=== PATIENT | male | born 1955 | race Caucasian/White ===

== ENCOUNTER → 2017-01-02 11:23 | Emergency (ER) | payer BC, MEDICARE ==
[~2017-01-02 11:23] MED LIST: DOXYcycline CAP(*) 100 MG PO ONE; cefTRIAXone VIAL(*) 1,000 MG VIAL IM ONE; cefTRIAXone VIAL(*) 250 MG VIAL IM ONE
--- NOTE | 2017-01-02 12:15 | RAD ---
HISTORY: Crush injury, third digit of right hand COMPARISONS: None VIEWS: 3, Frontal, lateral, and oblique views of the third digit of the right hand FINDINGS: BONE DENSITY: Normal. BONES: There is a comminuted and slightly displaced fracture of the tuft of the distal talus of the third digit consistent history of crush injury. JOINTS: There is no arthropathy. ALIGNMENT: There is no dislocation. SOFT TISSUES: There is associated soft tissue irregularity OTHER FINDINGS: None. IMPRESSION: COMMINUTED SLIGHTLY DISPLACED FRACTURE OF THE TUFT OF DISTAL PHALANX OF THE THIRD DIGIT OF THE RIGHT HAND
[2017-01-02 16:15] VITALS: BP 120/77
--- NOTE | 2017-01-02 16:16 | ED ---
Upper Extremity Pain - HPI Summary HPI Summary: Pt here w/ Rt middle finger crush injury - was working with [employer] on [employer] and caught finger between two metal parts on this machine. No animal feces to contaminate wound. Laceration with pain and bleeding. Tetanus is UTD. Denies numbness, tingling, weakness. NOTE: recently finished chemo for bladder CA w/ mets to LN's and esophagus. - History of Current Complaint Chief Complaint: EDLacSutureRecheck Stated Complaint: RT HAND LAC Time Seen by Provider: 01/02/17 14:31 Hx Obtained From: Patient - Allergies/Home Medications Allergies/Adverse Reactions: Allergies Allergy/AdvReac Type Severity Reaction Status Date / Time No Known Allergies Allergy Verified 09/11/16 11:49 PMH/Surg Hx/FS Hx/Imm Hx Previously Healthy: Yes Endocrine/Hematology History: Reports: Other Endocrine/Hematological Disorders - bladder CA w/ mets and chemo (completed recently) Denies: Hx Diabetes, Hx Systemic Lupus Erythematosus Cardiovascular History: Reports: Other Cardiovascular Problems/Disorders - 1993 AAA, RUPTURED, SURGERY Denies: Hx Congestive Heart Failure, Hx Hypertension, Hx Pacemaker/ICD GI History: Reports: Hx Gastroesophageal Reflux Disease - ON DAILY MEDS, NO Sx, Hx Irritable Bowel, Hx Ulcer - HX OF, Other GI Disorders - DUMPING SYNDROME History: Reports: Other Problems/Disorders - BLADDER CANCER Denies: Hx Dialysis, Hx Renal Disease Musculoskeletal History: Denies: Hx Rheumatoid Arthritis Sensory History: Reports: Hx Contacts or Glasses - GLASSES Denies: Hx Hearing Aid Opthamlomology History: Reports: Hx Contacts or Glasses - GLASSES Neurological History: Reports: Other Neuro Impairments/Disorders - NERVE PAIN R/ T OPEN AHMET 10/12/15 Psychiatric History: Reports: Hx Panic Disorder - Cancer History Cancer Type, Location and Year: BLADDER CANCER Hx Chemotherapy: Yes - Surgical History Surgery Procedure, Year, and Place: [id number] Seven abdominal surgeries , all for ulcer or abdominal blockage,. 1993 ABD [address] REPAIR - [facility] [place]. 2013 colectomy/LYSIS OF ADHESIONS [facility] [place]. 09/2015 GALLBLADDER [facility]. 10/2015 & 12/[address] 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 Hx Tobacco Use: Yes Type: Cigarettes Amount Used/How Often: 1/2 PPD X 40 YEARS Length of Time of Smoking/Using Tobacco: SINCE 20'S Have You Smoked in the Last Year: Yes Review of Systems Constitutional: Negative Negative: Fever, Chills Positive: no symptoms reported Musculoskeletal: Other - denies pain Skin: Other - see HPI Neurological: Negative Negative: Weakness, Paresthesia, Numbness Psychological: Normal All Other Systems Reviewed And Are Negative: Yes Physical Exam Triage Information Reviewed: Yes Vital Signs On Initial Exam: Initial Vitals Temp Pulse Resp BP Pulse Ox 98.1 F 78 17 113/82 95 01/02/17 11:35 01/02/17 11:35 01/02/17 11:35 01/02/17 11:35 01/02/17 11:35 Vital Signs Reviewed: Yes Appearance: Positive: Well-Appearing, No Pain Distress, Well-Nourished Skin: Positive: Warm - 1.5cm spiral lac along lateral Rt middle finger to palmar pad - nail is mostly avulsed from nail bed - oozing blood Head/Face: Positive: Normal Head/Face Inspection Eyes: Positive: Normal, EOMI ENT: Positive: Hearing grossly normal Musculoskeletal: Positive: Normal, Strength/ROM Intact Neurological: Positive: Sensory/Motor Intact, Alert, Oriented to Person Place, Time Psychiatric: Positive: Normal Procedures - Laceration/Wound Repair 1 Location: upper extremity - Rt middle finger Description: Irregular Anesthesia: Digital, 1.0%, Lido Length, Depth and Shape: 1.5cm x 3mm spiral, linear lac over finger w/ blow out of nail bed - nail in tact and partially attached to nail bed Betadine Prep?: Yes Irrigated w/ Saline (ccs): 250 - soaked, scrubbed w/ brush and irrigated Laceration/Wound Explored: contaminated - dirt brushed away and irrigated after soaking Closure: Single Layer Suture Type: Nylon - 5-0 Number of Sutures: 8 - 2 through nail for anchor and 6 through lateral finger tissue Layer Closure?: No Sterile Dressing Applied?: Yes - triple anbx + xerform + gauze + coban Diagnostics - Vital Signs Vital Signs Temp Pulse Resp BP Pulse Ox 01/02/17 11:35 98.1 F 78 17 113/82 95 - Laboratory Lab Statement: Any lab studies that have been ordered have been reviewed, and results considered in the medical decision making process. Re-Evaluation - Re-Evaluation First Eval Change: Improved - pt declined pain while here but then reports it's better once digital block provided Course/Dx - Course Course Of Treatment: Pt here w/ crush injury to Rt middle finger. Nail w/ partial blow out and lac - wound is dirty but cleaned and repaired - pt tolerated well. He is s/p chemo recently - received 1gram rocephin here today and 1 x doxy w/ home course for 10 days. Spoke w/ Dr. Arana who agrees to close f/u Saturday - to see Dr. Cottrell. Pt agrees w/ plan. NOTE: pt reports he has oxycodone at home for cancer pain which he has not taken so will use left over for finger pain as necessary. - Diagnoses Provider Diagnoses: Fracture of finger, middle phalanx, right, open - Physician Notifications Discussed Care of Patient With: Dr. Arana, Dr. Murphy - To be seen Saturday Discharge - Discharge Plan Condition: Stable Disposition: HOME Prescriptions: DOXYcycline CAP(*) [DOXYcycline 100MG CAP(*)] 100 mg PO BID #19 cap Patient Education Materials: Finger Fracture (ED), Finger Laceration (ED), Crush Injury (ED) Referrals: Quan Cottrell MD [Medical Doctor] - Additional Instructions: You have a fracture of the tip of your finger (ie. Tuft Fracture). This has been splinted for you today. You also have been started on antibiotics - it is important that you complete the course as directed. Your laceration was closed however you will need close follow-up with hand specialist to asses healing and to monitor for infection as this is a complicated injury. Also with your course of chemotherapy recently, your immune system may not fight infections as well. Call hand specialist tomorrow morning to schedule an appointment for Saturday. In the meantime, keep finger rest, iced and elevate to reduce pain and swelling. You may take ibuprofen 600mg every 6 hours with food and alternate with acetaminophen 650mg every 6 hours for pain. You reported having oxycodone at home that you took for pain related to cancer but still have some left -you agree to take this if pain is intolerable and/or trouble sleeping due to pain. *If you develop redness, swelling, streaking, fever, chills of your finger/hand , seek medical attention sooner than Saturday.
== END | disposition home or self-care (01) ==
LOC: ED 11:23
DX: S61.212A Laceration without foreign body of right middle finger without damage to nail, initial encounter (principal); W23.0XXA Caught, crushed, jammed, or pinched between moving objects, initial encounter; Y93.9 Activity, unspecified; Y92.9 Unspecified place or not applicable
CPT/HCPCS: 12002; 73140; 99282; A9270-GY; J0696

== ENCOUNTER 2017-04-05 10:24 | Day surgery (SDC) | payer BC, MEDICARE ==
--- NOTE | 2017-03-27 20:20 | HP ---
CC: Dr. Melissa Hansen; Dr. Abhishek Herrera; Dr. Ayaan Katz, [facility] * ADMITTING HISTORY AND PHYSICAL: DATE OF ADMISSION: 04/05/17 ADMITTING DIAGNOSIS: Bladder cancer. PLANNED PROCEDURE: Transurethral resection of bladder tumor and bilateral retrograde pyelograms. SURGEON: Dr. Kumar. 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 He subsequently had extensive evaluation at [facility] and in [place] and was eventually diagnosed with metastatic lymph node involvement and was treated with chemotherapy. Recent cystoscopy done in my office revealed what appears to be a solid bladder tumor in the left lateral wall and he is now being brought in for transurethral resection and bilateral retrogrades. PAST MEDICAL HISTORY: Significant for: 1. Bladder cancer. 2. History of dumping syndrome (status post multiple GI surgeries). PAST SURGICAL HISTORY: Significant for: 1. Transurethral resection of bladder tumors. 2. Partial gastrectomy. 3. Abdominal aneurysm repair in 1994. 4. Multiple lysis of adhesions. 5. Cholecystectomy. MEDICATIONS ON ADMISSION: Include: 1. Celebrex 200 mg daily. 2. Compazine 10 mg 3 to 4 times a day p.r.n. 3. Gabapentin 300 mg at bedtime. 4. Gabapentin 100 mg q.a.m. 5. Lorazepam 0.5 mg at bedtime p.r.n. 6. Myrbetriq 50 mg daily. 7. Omeprazole 20 mg daily. 8. Oxycodone p.r.n. 9. Zoloft 25 mg daily. ALLERGIES: MORPHINE (itching). SOCIAL HISTORY: He is a chronic heavy smoker with more than 40-year smoking history. PHYSICAL EXAMINATION GENERAL: Reveals a pleasant middle-aged gentleman. VITAL SIGNS: Blood pressure is 96/62; pulse 77 per minute, regular; oxygen saturation 97% on room air. LUNGS: Clear bilaterally. CARDIOVASCULAR: Regular rate and rhythm. S1, S2. ABDOMEN: Soft without masses. IMPRESSION: A 62-year-old chronic smoker with what appears to be a recurrent bladder tumor. PLAN: Planned procedure is transurethral resection of bladder tumor and bilateral retrograde pyelograms. [id number]/[facility] #: [id number] CARLOS
[~2017-04-05 10:24] MED LIST changes: +Buffered Lidocaine 0.9% SYRIN* 5 ML/SYR SYRINGE INTRADERM ONE; -DOXYcycline CAP(*) 100 MG PO ONE; +Famotidine IV* 10 MG/ML 2 ML (20 mg) IV ONE; -cefTRIAXone VIAL(*) 1,000 MG VIAL IM ONE; -cefTRIAXone VIAL(*) 250 MG VIAL IM ONE
[2017-04-05] MEDS ORDERED: Buffered Lidocaine 0.9% SYRIN* 5 ML/SYR SYRINGE ONE (10:42)
[2017-04-05] MEDS ORDERED: Famotidine IV* 10 MG/ML 2 ML (20 mg) ONE (10:42)
[2017-04-05] MEDS ORDERED: cefTRIAXone(*) 2 GM ADDV.VIAL IVPB ONE (10:42)
[2017-04-05] MEDS ORDERED: Iohexol 180 (CONTRAST) 10 ML SDV IV ONE (11:18)
[2017-04-05] MEDS ORDERED: Midazolam* 1 MG/ML 5 ML VIAL (5 MG) ONE ×2 (11:31→13:17)
[2017-04-05] MEDS ORDERED: oxyCODONE TAB* 5 MG TAB PO PRN (12:32)
[2017-04-05] MEDS ORDERED: DiMENhydriNATE IV* 50 MG/ML VIAL IV PUSH PRN (12:32)
[2017-04-05] MEDS ORDERED: Acetaminophen TAB* 325 MG PO PRN (12:32)
[2017-04-05] MEDS ORDERED: HYDROmorphone INJ* 1 MG/ML CARPUJECT SYRINGE IV PRN (12:32)
[2017-04-05] MEDS ORDERED: HYDROmorphone INJ* 1 MG/ML CARPUJECT SYRINGE ONE (12:53)
[2017-04-05] MEDS ORDERED: oxyCODONE TAB* 5 MG TAB ONE (12:53)
[2017-04-05] MEDS ORDERED: Lidocaine 2% JELLY* 6 ML JELLY TOPICAL ONE (13:09)
[2017-04-05] MEDS ORDERED: fentaNYL* 50 MCG/ML 2 ML VIAL (100 MCG VIAL) ONE ×2 (13:17→13:49)
[2017-04-05] MEDS ORDERED: Propofol* 10 MG/ML 20 ML BTL IV PUSH ONE (13:46)
[2017-04-05] MEDS ORDERED: Dexamethasone IV* 4 MG/ML 1 ML (4 MG) ONE (13:46)
[2017-04-05] MEDS ORDERED: Succinylcholine* 20 MG/ML 10 ML VIAL ONE (13:46)
[2017-04-05] MEDS ORDERED: Lidocaine 2% PF * 5 ML VIAL ONE (13:46)
[2017-04-05] MEDS ORDERED: Ondansetron INJ* 2 MG/ML VIAL ONE (13:46)
[2017-04-05] MEDS ORDERED: Ketorolac INJ* 30 MG/ML 1 ML VIAL ONE (13:46)
[2017-04-05 14:03] VITALS: BP 130/78
--- NOTE | 2017-04-06 05:30 | OP ---
CC: Melissa Hansen MD; Dr. Ayaan Katz, [facility], [place] * DATE OF OPERATION: 04/05/17 - [facility] DATE OF : 53 SURGEON: Moe Kumar MD ANESTHESIOLOGIST: Dr. Lemus. ANESTHESIA: General. PRE-OP DIAGNOSES: 1. Bladder cancer. 2. Hematuria. POST-OP DIAGNOSES: 1. Bladder cancer. 2. Hematuria. 3. Left hydronephrosis. OPERATIVE PROCEDURE: 1. Transurethral resection of bladder tumor (3 to 4 cm). 2. Bilateral retrograde pyelograms. 3. Left ureteroscopy and left stent insertion. OPERATIVE FINDINGS: 1. Solid appearing tumor, left side of trigone, partially obstructing left orifice. 2. Normal ureteroscopy with no evidence of tumor noted within left ureter. 3. Normal bilateral retrograde pyelograms with fullness of the left collecting system, but no filling defects noted. COMPLICATIONS: None. POSTOPERATIVE CONDITION: Stable. BLOOD LOSS: Less than 50 mL. INDICATIONS: Bridger Pruett is a 62-year-old gentleman with a history of recurrent bladder cancer. He was recently seen in the office, and on office cystoscopy was noted to have above mentioned findings. DESCRIPTION OF PROCEDURE: After induction of general anesthesia, the patient was placed in dorsal lithotomy position. Sequential compression devices were in place and functioning. Initial cystoscopy revealed a normal appearing urethra and mildly enlarged prostate. The bladder was examined. The patient has a small protuberance medial to the right orifice with normal overlying mucosa, which represents a chronic benign finding. On the left side of the trigone, there was a solid appearing vascular tumor, which was partially covering the left orifice. The remainder of the bladder was unremarkable except for extensive trabeculations and some scarring from prior tumors, but no other tumors were noted. The right retrograde pyelogram did not reveal any filling defect or obstruction. The drainage films showed complete evacuation of contrast from the right collecting system. On the left side, I initially attempted to put a guidewire into the left orifice , but this was partially blocked by the tumor. The resectoscope was introduced. The tumor was carefully resected down to muscle. Once this was done, the left orifice could be clearly visualized and was intubated with the open-ended catheter. Retrograde pyelogram revealed fullness of the left collecting system, but no filling defects were noted. A 6-Italian semi-rigid ureteroscope was introduced and advanced under direct vision. The entire distal , mid and proximal left ureter were visualized and were normal with no tumor seen. A 7-Italian stent was introduced and positioned under fluoroscopy with good proximal and distal positioning noted on the left side. Once all of the visible tumor had been resected and sent for histopathology, hemostasis was secured using the coagulating current. At the end of the procedure, there was no remaining visible tumor and hemostasis appeared satisfactory. A 22-Italian Hernandez was placed for temporary bladder drainage. The patient tolerated the procedure satisfactorily and was transferred back to the recovery area in stable condition. [id number]/[facility] #: [id number] MTDD
--- NOTE | 2017-04-09 10:38 | RAD ---
CPT II Codes: 6045F INDICATION: Bilateral retrograde pyelogram Approximately 12 seconds of fluoroscopy time was used. There is a filling defect in the proximal right ureter which eventually clears on the final image of the right retrograde. The left renal collecting system is not well opacified. Irregularities are noted in the proximal left ureter. This placement of a left ureteral stent with left hydronephrosis. IMPRESSION: Placement of a left ureteral stent.
== END 2017-04-05 14:05 | disposition home or self-care (01) ==
LOC: OR 10:24
PROVIDERS: ATTEND Urology
DX: C67.0 Malignant neoplasm of trigone of bladder (principal); R31.9 Hematuria, unspecified; N13.30 Unspecified hydronephrosis; F17.210 Nicotine dependence, cigarettes, uncomplicated; Z88.5 Allergy status to narcotic agent
CPT/HCPCS: 74420; 88305; A9270-GY; C1876; J0330; J0696; J1100; J1170; J1885; J2250; J2405; J2704; J3010

== ENCOUNTER 2017-05-06 20:26 | Inpatient (IN) | payer BC, MEDICARE ==
[2017-05-06] MEDS: NS 0.9% 1000 ML*IV.FLUID IV ONE ×2 (21:30→22:25)
[2017-05-06 22:00] LABS: Hematocrit 26 % (42-52); Hemoglobin 8.9 g/dl (14.0-18.0); Mean Corpuscular HGB Conc 35 g/dl (31-36); Mean Corpuscular Hemoglobin 34 pg (27-31); Mean Corpuscular Volume 96 fL (80-94); Mean Platelet Volume 7 um3 (7.4-10.4); Red Blood Count 2.65 10^6/ul (4.0-5.4); Red Cell Distribution Width 14 % (10.5-15); White Blood Count 16.7 10^3/ul (3.5-10.8)
[2017-05-06 22:14] LABS: Albumin 3.1 g/dL (3.2-5.2); BUN/Creatinine Ratio 18.6 (8-20); C Reactive Protein 214.81 mg/L (< 5.00); Calcium 8.2 mg/dL (8.6-10.3); EGFR African American 84.3 (>60); EGFR Non-African American 65.5 (>60); Globulin 3.3 g/dL (2-4); Potassium 4.3 mmol/L (3.5-5.0); Total Bilirubin 0.6 mg/dL (0.2-1.0); Total Protein 6.4 g/dL (6.4-8.9)
[2017-05-06] MEDS ORDERED: oxyCODONE TAB* 5 MG TAB PO ONE (22:36)
[2017-05-06 23:45] LABS: Urine Bacteria 1+ (Absent); Urine Bilirubin Negative (Negative); Urine Glucose Negative (Negative); Urine Nitrite Negative (Negative)
[2017-05-07] MEDS ORDERED: NS 0.9% 1000 ML* 1,000 ML IV ONE ×2 (00:05→02:18)
[2017-05-07] MEDS ORDERED: Iohexol 300* (CONTRAST) 10 ML SDV IV ONE (00:44)
[2017-05-07] MEDS ORDERED: oxyCODONE TAB* 5 MG TAB PO ONE (01:52)
[2017-05-07] MEDS ORDERED: Acetaminophen TAB* 325 MG ONE (02:03)
[2017-05-07] MEDS ORDERED: Acetaminophen TAB* 325 MG PO ONE (02:06)
[2017-05-07] MEDS: NS 0.9% 1000 ML* 1,000 ML IV SCH ×6 (04:08→23:22)
--- NOTE | 2017-05-07 07:27 | RAD ---
INDICATION: Fever. COMPARISON: Comparison is made with a prior chest x-ray study from May 27, 2014. TECHNIQUE: A portable view of the chest was obtained. FINDINGS: There is a central venous catheter present on the right side. The catheter tip projects overlying the superior vena cava. The heart is within normal limits in size. There are multiple surgical clips which project overlying the gastroesophageal junction. The lungs are clear. No pleural effusion is seen. IMPRESSION: NO EVIDENCE FOR ACUTE DISEASE.
--- NOTE | 2017-05-07 07:32 | RAD ---
INDICATION: Right flank pain, recent surgery, cystectomy. COMPARISON: Comparison is made with a prior outside PET/CT study from April 04, 2017. TECHNIQUE: Multiple real-time images of the kidneys were obtained. FINDINGS: The kidneys are normal in size shape and echogenicity. The right kidney measured 12.4 x 5.1 x 7.3 cm and the left kidney measured 11.4 x 6.8 x 5.8 cm. There is a cyst arising from the superior pole of the left kidney measured 3.8 x 2.5 x 3.0 cm. No hydronephrosis is seen. IMPRESSION: LEFT RENAL CYST, NO HYDRONEPHROSIS.
--- NOTE | 2017-05-07 07:32 | ED ---
Paul Cabello Nilda, scribed for German Oneil MD on 05/06/17 at 2129 . Complex/Multi-Sys Presentation - HPI Summary HPI Summary: This patient is a 62 year old M presenting to [facility] accompanied by and children with a chief complaint of possible infection s/p radical cystectomy that occurred 1 week ago. The patient rates the pain 7/10 in severity. Symptoms aggravated by movement and alleviated by nothing. Patient reports fever, chills , fatigue, dehydration, weakness, tremors, no BM for 3 days, dark urine ( yesterday), and severe right lower back pain for the past 2 days. Patient denies cough, chest congestion, and rhinorrhea. 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 - History Of Current Complaint Chief Complaint: EDFever Time Seen by Provider: 05/06/17 21:15 Hx Obtained From: Patient Onset/Duration: Sudden Onset, Lasting Days - 2 days, Still Present Timing: Constant, Days Severity Currently: Severe Location: Pain At: - lower right back Aggravating Factor(s): movement Alleviating Factor(s): nothing Associated Signs And Symptoms: Positive: Other - fever, chills, fatigue, dehydration, weakness, tremors, no BM for 3 days, dark urine (yesterday), and severe right lower back pain for the past 2 days. Patient denies cough, chest congestion, and rhinorrhea. Related History: Other - recent radical cystectomy 1 week ago - Allergies/Home Medications Allergies/Adverse Reactions: Allergies Allergy/AdvReac Type Severity Reaction Status Date / Time No Known Allergies Allergy Verified 05/06/17 20:35 Home Medications: Home Medications Oxycodone HCl [Oxaydo] 5 mg PO BID 05/07/17 [History Confirmed 05/07/17] oxyCODONE SR TAB(*) [Oxycontin 10 mg (*)] 10 mg PO BID PRN 05/07/17 [History Confirmed 05/07/17] PMH/Surg Hx/FS Hx/Imm Hx Endocrine/Hematology History: Reports: Other Endocrine/Hematological Disorders - bladder CA w/ mets and chemo (completed recently) Denies: Hx Diabetes, Hx Systemic Lupus Erythematosus Cardiovascular History: Reports: Other Cardiovascular Problems/Disorders - 1993 AAA, RUPTURED, SURGERY Denies: Hx Congestive Heart Failure, Hx Hypertension, Hx Pacemaker/ICD GI History: Reports: Hx Gastroesophageal Reflux Disease - ON DAILY MEDS, NO Sx, Hx Irritable Bowel, Hx Ulcer - HX OF, Other GI Disorders - DUMPING SYNDROME History: Reports: Other Problems/Disorders - BLADDER CANCER Denies: Hx Dialysis, Hx Renal Disease Musculoskeletal History: Denies: Hx Rheumatoid Arthritis Sensory History: Reports: Hx Contacts or Glasses - GLASSES Denies: Hx Hearing Aid Opthamlomology History: Reports: Hx Contacts or Glasses - GLASSES Neurological History: Reports: Other Neuro Impairments/Disorders - NERVE PAIN R/ T OPEN AHMET 10/12/15 Psychiatric History: Reports: Hx Panic Disorder - Cancer History Cancer Type, Location and Year: BLADDER CANCER Hx Chemotherapy: Yes - Surgical History Surgery Procedure, Year, and Place: [id number] Seven abdominal surgeries , all for ulcer or abdominal blockage,. 1993 [place] [facility] [place] [facility] [place] [facility]. 10/2015 & 12/[place] [facility] [place] Anesthesia Reactions: No - Immunization History Date of Tetanus Vaccine: unk Date of Influenza Vaccine: 2014 Infectious Disease History: No Infectious Disease History: Denies: Traveled Outside the [place] in Last 30 Days - Family History Known Family History: Positive: Diabetes Negative: Hypertension - Social History Alcohol Use: None Hx Substance Use: No Substance Use Type: Reports: None Substance Use Comment - Amount & Last Used: oxycodone rx'd for cancer pain but doesn't take them per pt. Hx Tobacco Use: Yes Smoking Status (MU): Current Every Day Smoker Type: Cigarettes Amount Used/How Often: 1/2 PPD X 40 YEARS Length of Time of Smoking/Using Tobacco: SINCE 20'S Have You Smoked in the Last Year: Yes Review of Systems Positive: Fever, Chills, Fatigue, Other - dehydration Negative: Nasal Discharge Positive: Other - negative: chest congestion. Negative: Cough Positive: Other - no BM for three days Positive: other - dark urine Positive: Other - right lower back pain (severe) Neurological: Other - tremors Positive: Weakness All Other Systems Reviewed And Are Negative: Yes Physical Exam Triage Information Reviewed: Yes Vital Signs On Initial Exam: Initial Vitals Temp Pulse Resp BP Pulse Ox 100.0 F 100 18 111/56 100 05/06/17 20:31 05/06/17 20:31 05/06/17 20:31 05/06/17 20:31 05/06/17 20:31 Vital Signs Reviewed: Yes Appearance: Positive: No Pain Distress, Ill-Appearing - moderately Skin: Positive: Warm, Skin Color Reflects Adequate Perfusion, Dry Head/Face: Positive: Other - oral mucosa dry Eyes: Positive: EOMI, AKIRA ENT: Positive: Normal ENT inspection Neck: Positive: Supple, Nontender Respiratory/Lung Sounds: Positive: Clear to Auscultation, Breath Sounds Present Cardiovascular: Positive: Tachycardia Abdomen Description: Positive: Nontender, Soft Bowel Sounds: Positive: Hypoactive Male Genital Exam: Positive: other - urostomy bag on right side of abdomen; dark urine not cloudy Musculoskeletal: Positive: Other - right flank tenderness Neurological: Positive: Normal, Sensory/Motor Intact, Alert, Oriented to Person Place, Time Psychiatric: Positive: Affect/Mood Appropriate Diagnostics - Vital Signs Vital Signs Temp Pulse Resp BP Pulse Ox 05/06/17 20:31 100.0 F 100 18 111/56 100 - Laboratory Lab Results: Lab Results 05/06/17 05/06/17 05/06/17 Range/Units 21:50 21:50 21:50 WBC 16.7 H (3.5-10.8) 10^3/ul RBC 2.65 L (4.0-5.4) 10^6/ul Hgb 8.9 L (14.0-18.0) g/dl Hct 26 L (42-52) % MCV 96 H (80-94) fL MCH 34 H (27-31) pg MCHC 35 (31-36) g/dl RDW 14 (10.5-15) % Plt Count 320 (150-450) 10^3/ul MPV 7 L (7.4-10.4) um3 Neut % (Auto) 84.6 H (38-83) % Lymph % (Auto) 8.0 L (25-47) % [place] % (Auto) 6.8 (1-9) % Eos % (Auto) 0.4 (0-6) % Baso % (Auto) 0.2 (0-2) % Absolute Neuts (auto) 14.1 H (1.5-7.7) 10^3/ul Absolute Lymphs (auto) 1.3 (1.0-4.8) 10^3/ul Absolute Monos (auto) 1.1 H (0-0.8) 10^3/ul Absolute Eos (auto) 0.1 (0-0.6) 10^3/ul Absolute Basos (auto) 0 (0-0.2) 10^3/ul Absolute Nucleated RBC 0 10^3/ul Nucleated RBC % 0 INR (Anticoag Therapy) 1.19 H (0.89-1.11) APTT 28.1 (26.0-36.3) seconds Sodium 130 L (133-145) mmol/L Potassium 4.3 (3.5-5.0) mmol/L Chloride 99 L (101-111) mmol/L Carbon Dioxide 25 (22-32) mmol/L Anion Gap 6 (2-11) mmol/L BUN 21 (6-24) mg/dL Creatinine 1.13 (0.67-1.17) mg/dL Est GFR ( Amer) 84.3 (>60) Est GFR (Non-Af Amer) 65.5 (>60) BUN/Creatinine Ratio 18.6 (8-20) Glucose 95 (70-100) mg/dL Lactic Acid (0.5-2.0) mmol/L Calcium 8.2 L (8.6-10.3) mg/dL Total Bilirubin 0.60 (0.2-1.0) mg/dL AST 18 (13-39) U/L ALT 17 (7-52) U/L Alkaline Phosphatase 117 H (34-104) U/L Troponin I 0.00 (<0.04) ng/mL C-Reactive Protein 214.81 H (< 5.00) mg/L Total Protein 6.4 (6.4-8.9) g/dL Albumin 3.1 L (3.2-5.2) g/dL Globulin 3.3 (2-4) g/dL Albumin/Globulin Ratio 0.9 L (1-3) Urine Color Urine Appearance Urine pH (5-9) Ur Specific [place] (1.010-1.030) Urine Protein (Negative) Urine Ketones (Negative) Urine Blood (Negative) Urine Nitrate (Negative) Urine Bilirubin (Negative) Urine Urobilinogen (Negative) Ur Leukocyte Esterase (Negative) Urine WBC (Auto) (Absent) Urine RBC (Auto) (Absent) Urine Bacteria (Absent) Urine Glucose (Negative) 05/06/17 05/06/17 05/07/17 Range/Units 21:50 22:55 02:25 WBC (3.5-10.8) 10^3/ul RBC (4.0-5.4) 10^6/ul Hgb (14.0-18.0) g/dl Hct (42-52) % MCV (80-94) fL MCH (27-31) pg MCHC (31-36) g/dl RDW (10.5-15) % Plt Count (150-450) 10^3/ul MPV (7.4-10.4) um3 Neut % (Auto) (38-83) % Lymph % (Auto) (25-47) % Grundy % (Auto) (1-9) % Eos % (Auto) (0-6) % Baso % (Auto) (0-2) % Absolute Neuts (auto) (1.5-7.7) 10^3/ul Absolute Lymphs (auto) (1.0-4.8) 10^3/ul Absolute Monos (auto) (0-0.8) 10^3/ul Absolute Eos (auto) (0-0.6) 10^3/ul Absolute Basos (auto) (0-0.2) 10^3/ul Absolute Nucleated RBC 10^3/ul Nucleated RBC % INR (Anticoag Therapy) (0.89-1.11) APTT (26.0-36.3) seconds Sodium (133-145) mmol/L Potassium (3.5-5.0) mmol/L Chloride (101-111) mmol/L Carbon Dioxide (22-32) mmol/L Anion Gap (2-11) mmol/L BUN (6-24) mg/dL Creatinine (0.67-1.17) mg/dL Est GFR ( Amer) (>60) Est GFR (Non-Af Amer) (>60) BUN/Creatinine Ratio (8-20) Glucose (70-100) mg/dL Lactic Acid 1.0 0.6 (0.5-2.0) mmol/L Calcium (8.6-10.3) mg/dL Total Bilirubin (0.2-1.0) mg/dL AST (13-39) U/L ALT (7-52) U/L Alkaline Phosphatase (34-104) U/L Troponin I (<0.04) ng/mL C-Reactive Protein (< 5.00) mg/L Total Protein (6.4-8.9) g/dL Albumin (3.2-5.2) g/dL Globulin (2-4) g/dL Albumin/Globulin Ratio (1-3) Urine Color Yellow Urine Appearance Cloudy Urine pH 6.0 (5-9) Ur Specific [place] 1.003 L (1.010-1.030) Urine Protein Negative (Negative) Urine Ketones Negative (Negative) Urine Blood 2+ H (Negative) Urine Nitrate Negative (Negative) Urine Bilirubin Negative (Negative) Urine Urobilinogen Positive H (Negative) Ur Leukocyte Esterase 3+ H (Negative) Urine WBC (Auto) 3+(>20/hpf) H (Absent) Urine RBC (Auto) 1+(3-5/hpf) H (Absent) Urine Bacteria 1+ H (Absent) Urine Glucose Negative (Negative) Result Diagrams: 05/06/17 21:50 05/06/17 21:50 Lab Statement: Any lab studies that have been ordered have been reviewed, and results considered in the medical decision making process. - Radiology CXR Radiology Interpretation Completed By: ED Physician - NAD - CT Abd/Pelvis CT Interpretation Completed By: Radiologist - Probable pyelonephritis, particularly in the right kidney and questionably in the left kidney without hydronephrosis, stones or abscess. Moderate amount of pelvic free fluid without definite abscess. ED Physician has reviewed this report and agrees. - EKG 2147 Cardiac Rate: NL - 90 bpm EKG Rhythm: Sinus Rhythm ST Segment: Normal Ectopy: None - Additional Comments Diagnostic Additional Comments: US renal, per radiologist, reveals normal kidneys. ED physician reviewed report and agrees. Re-Evaluation - Re-Evaluation First Eval Re-Evaluation Time: 21:57 Comment: Discussed conversation with Dr. Katz (Urology) with patient as well as plan of care. Patient agreeable with this plan. Second Eval Re-Evaluation Time: 00:00 Change: Improved Third Eval Re-Evaluation Time: 02:22 Comment: Discussed lab reports. Fourth Eval Re-Evaluation Time: 04:30 Change: Unchanged - BP staying fairly low. Complex Multi-Symp Course/Dx Course Of Treatment: Medications reviewed. Allergies reviewed. [0638] consulted with Dr. Carbajal (urology) who agrees with plan to push Abx and admit patient. [0701] consulted with Dejon (hospitalist) who agrees to admit patient. DISCUSSED WITH PATIENT'S SURGEON, DR MUELLER ([facility] ) WHEN PATIENT FIRST ARRIVED IN ED AND SEVERAL DURING THE STAY IN THE ED. HE RECOMMENDED ADMISSION AND IV ZOSYN. DISCUSSED WITH DR CARBAJAL. ADMIT. CRITICAL CARE TIME LESS THAN 30 MINUTES. - Diagnoses Provider Diagnoses: Pyelonephritis - Physician Notifications Discussed Care Of Patient With: Ayaan Katz MD - Urology Time Discussed With Above Provider: 21:43 Instructed by Provider To: Other - Discussed patient. Discharge - Discharge Plan Condition: Stable Disposition: ADMITTED TO [facility] Referrals: Melissa Hansen MD [Primary Care Provider] - The documentation as recorded by the Paul torres Nilda accurately reflects the service I personally performed and the decisions made by me, German Oneil MD.
--- NOTE | 2017-05-07 08:20 | RAD ---
INDICATION: RIGHT flank pain. Recent partial bladder and prostate resection. Question abscess. COMPARISON: May 06, 2017 renal ultrasound and April 04, 2017 PET/CT. November 21, 2016 PET/CT. TECHNIQUE: Multidetector CT images were obtained from the lung bases to the ischial tuberosities with 93 mL Omnipaque 300 IV and oral contrast. Multiplanar reformation. REPORT: Mild prominence of the basilar interstitial markings and mild dependent subsegmental atelectasis. Negative for pleural or pericardial effusions. Mild intra and extrahepatic biliary dilatation which appears grossly unchanged from the November 21, 2016 PET/CT. No CT conspicuous common bile duct stone or obstructing lesion evident. Negative for pancreatic duct dilatation or conspicuous focal pancreatic lesion. Unremarkable spleen. Surgical clips at the level of the GE junction. Probable partial gastrectomy with gastrojejunal anastomosis corresponding with history of previous surgery for gastric ulcers. Small bowel anastomosis at the LEFT para midline abdomen. Enteric contrast extends to the jejunal ileal junction limiting assessment of the ileum. The colon is remarkable for gas distention with minimal stool. Moderate volume of diffuse ascites. Negative for free air. Unremarkable adrenal lesions. Bilateral ureteral stents present extending to a RIGHT lower quadrant urostomy without definitive conspicuous ileal conduit. Mild caliectasis of the LEFT kidney and minimal enhancement of the LEFT renal pelvis uroepithelium. Symmetric nephrograms and pyelograms with mildly heterogeneous enhancement of both kidneys suggesting potential pyelonephritis. 3.5 cm simple cyst upper pole cortex LEFT kidney. Post gross resection of the urinary bladder and prostate. No loculated abscess collection evident at the resection bed. 1.2 cm short axis RIGHT retrocrural lymph node is grossly unchanged from the previous PET CT exams and devoid of hypermetabolic activity previously. Normal diameter abdominal aorta and iliac arteries. Physiologic partial distention of the IVC. Negative for suspicious focal osseous lesions. IMPRESSION: 1. Mild intra and extrahepatic biliary dilatation which appears grossly unchanged from the November 21, 2016 PET/CT. No CT conspicuous common bile duct stone or obstructing lesion evident. Negative for pancreatic duct dilatation or conspicuous focal pancreatic lesion. 2. Negative for bowel obstruction. 3. Moderate volume of nonloculated ascites. 4. Post cystoprostatectomy. Bilateral ureteral stents present extending to a RIGHT lower quadrant urostomy without definitive conspicuous ileal conduit. Mild caliectasis of the LEFT kidney and minimal enhancement of the LEFT renal pelvis uroepithelium. Mildly heterogeneous bilateral renal enhancement suggests potential pyelonephritis. 5. No significant change in 1.2 cm short axis RIGHT retrocrural lymph node.
[2017-05-07] MEDS ORDERED: celeCOXIB CAP* 200 MG PO PRN (09:13)
[2017-05-07] MEDS ORDERED: oxyCODONE SR TAB(*) 10 MG TAB.SR PO PRN (09:13)
[2017-05-07] MEDS ORDERED: Acetaminophen TAB* 325 MG PO PRN (09:16)
[2017-05-07] MEDS ORDERED: Loperamide CAP* 2 MG PO ONE (10:00)
[2017-05-07] MEDS: Sertraline* 25 MG TAB PO SCH (13:02)
[2017-05-07] MEDS: oxyCODONE TAB* 5 MG TAB PO PRN ×3 (13:03→20:22)
[2017-05-07] MEDS: LORazepam TAB(*) 1 MG PO PRN ×2 (20:22→23:06)
--- NOTE | 2017-05-08 01:17 | HP ---
CC: Dr. Katz, Urology, [place]; Dr. Melissa Hansen; Dr. Papa Silva * ADMISSION HISTORY AND PHYSICAL: DATE OF ADMISSION: 04/27/17 REASON FOR ADMISSION: Urosepsis approximately 2 weeks post cystoprostatectomy. HISTORY OF PRESENT ILLNESS: Mr. Pruett is a 62-year-old male who was discovered to have bladder cancer approximately 18 months ago. For details, please see below. He recently underwent a cystoprostatectomy with complete resection of the bladder. He was hospitalized in [place] for 3 days, surgery with Dr. Ayaan Katz. During the hospitalization, he reports some back pain, but no other complications following this radical cystectomy. He has otherwise done well until the past 4 days. He has developed a fever up to 101 along with shaking chills and drenching sweats. He did notify Dr. Katz of these symptoms 2 days ago and was advised to go to the emergency room in [place], but he refused. He has been taking oxycodone postop for both back and surgical pain. In the day prior to this admission, the patient felt drenched after his nap and teeth chattering chills, which were down throughout the afternoon and evening, fever went to 101. Dr. Hansen, his primary care physician, came to his house, encouraged him to go to the emergency room. He did so several hours later. Since arrival in the emergency room, he received some IV fluids and a dose of ceftriaxone. He reports feeling better. In fact, questioning whether he is able to go home at this point. Clearly, he is septic and hypotensive and this was not advisable. He reports that he had no bowel movements for 12 days postoperatively, then took glycerin suppositories on 05/04/17 and 05/05/17 and has had 3 to 4 loose stools since then. He reports being down about 10 pounds around the time of surgery and subsequently, but denies any nausea or vomiting. PAST MEDICAL HISTORY: Bladder cancer, CT scan in September of 2015 was performed after cholecystectomy and the mass was noted in the posterior aspect of the bladder. Cystoscopy and biopsy with Dr. 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 He had a transurethral resection of the bladder tumor in December 2015 followed by BCG therapy into bladder. In February 2016, he had another transurethral resection of bladder tumor with only necrotic tissue found. In December 2016, CT scan done through [facility] revealed a persistent left internal iliac lymph node. On PET scan, this lymph node had an SUV of 8.5. In addition, there was mild uptake in the right perihilar and pretracheal lymph nodes of SUVs of 3 to 4. Biopsy of the left inguinal lymph node revealed metastatic urothelial carcinoma. He received chemotherapy with cisplatin and gemcitabine starting August 2016 x4 cycles. By PET scan, he had a complete response. In March of 2017, he had a local recurrence of bladder cancer and had a complete gross resection with Dr. Kumar. 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 A PET scan on March 2017 revealed right hilar and axillary lymph node been weakly positive, but no other significant abnormalities. He underwent the above complete radical cystectomy just 12 days ago. PAST MEDICAL HISTORY: Otherwise significant for multiple abdominal surgeries between 1993 and 2005 at least 7 in total, also abdominal blockage. Because of this he does have short gut syndrome and fair amount of his bowel has been removed. In 1993, abdominal aortic aneurysm repair; 2013, colectomy and lysis of adhesions. In 2015, cholecystectomy. No hypertension, diabetes, ID or CVA. MEDICATIONS: 1. Celebrex 200 mg in the morning. 2. Cyanocobalamin 1000 mcg injections monthly. 3. Gabapentin 100 mg in the morning. 4. Lorazepam 0.5 mg at h.s. p.r.n. 5. Omeprazole 20 mg daily. 6. Oxycodone p.r.n. daily. 7. Sertraline 25 mg daily. 8. Myrbetriq 50 mg daily. ALLERGIES: None. FAMILY HISTORY: Noncontributory. SOCIAL HISTORY: The patient lives with his . Denies any significant alcohol use. He is a current smoker of half pack per day for 4 years having smoked since in his 20s. REVIEW OF SYSTEMS: Modest weight loss recently prior to surgery. No significant recent infections or significant aches or pains. Longstanding issues of his GI tract as discussed above. No significant cardiac or pulmonary issues other than aortic aneurysm repair. No significant neurologic complaints. No specific neuropathy using cisplatinum chemotherapy. Denies any underlying depression, but does report a history of panic disorder. PHYSICAL EXAMINATION GENERAL: A 62-year-old male, who appears septic. VITAL SIGNS: Temperature 100, pulse 100, blood pressure initially 111/56, but then falling into the 80s despite 3 L of fluids staying in the 80s. HEENT: PERRL, EOMI. No erythema or exudates. Somewhat moist mucous membranes in the mouth, but still somewhat dry after 3 L. LUNGS: Clear. HEART: Regular rate and rhythm without murmurs, rubs, or gallops. ABDOMEN: Normal active bowel sounds. No masses or organomegaly. Urostomy in the right lower quadrant. Urine is dark, but not cloudy. EXTREMITIES: No clubbing, cyanosis, or edema. BACK: No CVA or spinal tenderness. NEUROLOGIC: Without focal deficits. LABORATORY STUDIES: CBC white count 86224, hematocrit 26, hemoglobin 8.9, platelet count 320,000 with 85 polys and 6 lymphs, 7 monos and less than 1% eosinophils and basophils. Chemistry studies: Sodium 130, potassium 4.3, chloride 99, bicarb 25, BUN 21, creatinine 1.1, glucose 95. LFTs unremarkable. C-reactive protein 215. Lactic acid 1.0. Urine cloudy with 2+ blood, 3+ leukocyte esterase, 3+ white cells 1+ red cells, 1+ bacteria. CT scan, probable pyelonephritis on the right and question on the left as well. No hydronephrosis. No stones. No abscess. Modest amount of free pelvic fluid. IMPRESSION: Urosepsis having gone through several days now approximately 2 weeks out from radical cystectomy. Situation has been discussed with the emergency room physician, with his urologist in [place], Dr. Katz, and also with Urology here. The patient initially received a dose of ceftriaxone; but subsequent to our discussion with Urology in [place], decision was made to start him on IV Zosyn. He has received 1 bag in the emergency room. On my arrival in the emergency room, his blood pressure was in the 80s, but then next one blood pressure was over 90. Initially decision was made to admit the patient to telemetry on the floor; but after subsequent having blood pressure back into the 80s following 3 to 4 units of IV fluids, decision was made to admit him to the ICU in case he needs pressors. He will continue to receive IV fluids of 250 mL per hour for just another a couple of liters before dropping back slightly on the IV volume. He will receive Zosyn 3.375 g t.i.d. Urine cultures and blood cultures are pending even within a few hours of obtaining these cultures. They are positive for gram-negative rods for identification and sensitivities are pending. [id number]/[facility] #: [id number] [facility]ITALTres
[2017-05-08] MEDS: NS 0.9% 1000 ML* 1,000 ML IV SCH ×4 (01:18→23:55)
[2017-05-08] MEDS: oxyCODONE TAB* 5 MG TAB PO PRN ×4 (01:19→23:54)
[2017-05-08 06:10] LABS: Hematocrit 22 % (42-52); Hemoglobin 7.6 g/dl (14.0-18.0); Mean Corpuscular HGB Conc 34 g/dl (31-36); Mean Corpuscular Hemoglobin 33 pg (27-31); Mean Corpuscular Volume 95 fL (80-94); Mean Platelet Volume 8 um3 (7.4-10.4); Red Blood Count 2.32 10^6/ul (4.0-5.4); Red Cell Distribution Width 15 % (10.5-15); White Blood Count 8.7 10^3/ul (3.5-10.8)
[2017-05-08 06:21] LABS: BUN/Creatinine Ratio 15.5 (8-20); C Reactive Protein 163.78 mg/L (< 5.00); Calcium 7.3 mg/dL (8.6-10.3); EGFR African American 100.5 (>60); EGFR Non-African American 78.2 (>60); Potassium 3.7 mmol/L (3.5-5.0)
[2017-05-08] MEDS: Gabapentin CAP(*) 100 MG PO SCH (07:49)
[2017-05-08] MEDS: Sertraline* 25 MG TAB PO SCH (07:49)
[2017-05-08] MEDS: Omeprazole CAP* 20 MG PO SCH (07:49)
[2017-05-08] MEDS: Enoxaparin(*) 40 MG/0.4 ML SYR SUBCUT SCH (11:36)
[2017-05-08] MEDS: LORazepam TAB(*) 1 MG PO PRN ×2 (20:03→23:54)
[2017-05-09] MEDS: oxyCODONE TAB* 5 MG TAB PO PRN (05:23)
[2017-05-09] MEDS: Omeprazole CAP* 20 MG PO SCH (08:14)
[2017-05-09 08:38] LABS: Hematocrit 23 % (42-52); Mean Corpuscular HGB Conc 34 g/dl (31-36); Mean Corpuscular Hemoglobin 33 pg (27-31); Mean Corpuscular Volume 95 fL (80-94); Mean Platelet Volume 7 um3 (7.4-10.4); Red Blood Count 2.46 10^6/ul (4.0-5.4); Red Cell Distribution Width 15 % (10.5-15); White Blood Count 6.3 10^3/ul (3.5-10.8)
[2017-05-09 08:50] LABS: BUN/Creatinine Ratio 13.5 (8-20); Calcium 7.7 mg/dL (8.6-10.3); EGFR African American 101.7 (>60); EGFR Non-African American 79.1 (>60); Potassium 3.8 mmol/L (3.5-5.0)
[2017-05-09] MEDS: Gabapentin CAP(*) 100 MG PO SCH (09:47)
[2017-05-09] MEDS: Sertraline* 25 MG TAB PO SCH (09:48)
[2017-05-09] MEDS: Enoxaparin(*) 40 MG/0.4 ML SYR SUBCUT SCH (12:47)
[2017-05-09 13:03] VITALS: BP 111/63
--- NOTE | 2017-05-09 23:31 | DS ---
Amended report to enter cosigning physician. CC: Dr. Katz at [place], Urology.* DISCHARGE SUMMARY: DATE OF ADMISSION: 05/07/17 DATE OF DISCHARGE: 05/09/17 ATTENDING PHYSICIAN: Dr. Sheela Lei* (dictated by Jordyn Pollock NP). DISCHARGE DIAGNOSES: 1. Sepsis secondary to E. coli: Resolving. 2. Bladder cancer: Status post cystectomy with external urethral drain: Stable. 3. 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 DISCHARGE MEDICATIONS: 1. Ciprofloxacin 500 mg p.o. b.i.d. x18 days to complete a total of 3 weeks. 2. Acetaminophen 650 mg p.o. q.6 hours p.r.n. fever/pain. 3. Celebrex 200 mg p.o. q.a.m. p.r.n. pain. 4. Omeprazole 20 mg p.o. q.a.m. 5. Gabapentin 100 mg p.o. q.a.m. 6. B12 injection IM q.14 days. 7. Zoloft 50 mg p.o. q.a.m. 8. Oxycodone SR 10 mg p.o. b.i.d. 9. Oxycodone 5 mg p.o. q.4 hours p.r.n. pain. HOSPITAL COURSE: Please see admission note for full H and P; however, briefly, Mr. Pruett is well known to our service due to his unfortunate diagnosis of bladder cancer, initially diagnosed in September of 2015. He completed chemotherapy in August of 2015 with complete response by PET. In March of 2017, he had a local recurrence with resection, but with question of lymph node involvement on PET followup. In the beginning of April, Mr. Pruett underwent a complete resection of the bladder with Dr. Katz in [place], [place]. This surgery was completed without complication. He presented, however, to the ER on 05/07/17 following several days of feeling unwell and then a fever up to 101 with shaking chills. In addition to the fever he also presented with hypotension and leukocytosis, consistent with sepsis. He was admitted to the ICU for IV fluids and close monitoring. His urine and blood cultures near immediately grew out Gram-negative rods and he was started on IV Zosyn 3.375 g t.i.d. The following day on 05/08/17, Mr. Pruett was transferred out of the ICU in stable condition to the medical floor for continued IV abx. and IV fluids. Over the next 24 hours, Mr. Pruett continued to do very well with no further fevers and improvement in his blood pressure. Today, on the , he feels very well and would like very much to go home. He understands the risk associated with sepsis and need for continued oral antibiotics as well as close followup. He will see Dr. Katz in the next [address] Katz's request, though at this time they do not plan to change the stents due to the close association with his initial surgery (goal is for change @ 3 mo). Mr. Pruett will go home on ciprofloxacin 500 mg p.o. b.i.d. to complete a total of 3 weeks of antibiotics. He will follow up with Dr. Herrera locally on 05/17/17. He has already been [facility] with [facility] following his surgery and we will continue this home care as well as adding IV hydration 2 times per week. Care of his urostomy site was reviewed at length with the demonstrating good understanding. Plan of care was reviewed with Mr. Pruett at length and he states good understanding of how and when to call the office or return to the ER. TIME SPENT: Greater than 40 minutes spent with greater than 50% [id number] counseling. JORDYN POLLOCK NP [id number]/[facility] #: [id number] CARLOS
== END 2017-05-09 14:05 | disposition home health service (06) | DRG 872 ==
LOC: ED 20:26 → ICU 05-07 09:09 → MED 05-08 11:15
PROVIDERS: ADMIT Internal Medicine Hematology & Oncology; ATTEND Internal Medicine Hematology & Oncology
DX: A41.51 Sepsis due to Escherichia coli [E. coli] (principal); C77.4 Secondary and unspecified malignant neoplasm of inguinal and lower limb lymph nodes; K91.1 Postgastric surgery syndromes; K21.9 Gastro-esophageal reflux disease without esophagitis; K58.9 Irritable bowel syndrome, unspecified; A41.9 Sepsis, unspecified organism; F17.210 Nicotine dependence, cigarettes, uncomplicated; D64.9 Anemia, unspecified; F41.0 Panic disorder [episodic paroxysmal anxiety]; Z83.3 Family history of diabetes mellitus; Z90.49 Acquired absence of other specified parts of digestive tract; Z90.6 Acquired absence of other parts of urinary tract; Z85.51 Personal history of malignant neoplasm of bladder; Z92.21 Personal history of antineoplastic chemotherapy
CPT/HCPCS: 36415; 71010; 74177; 76775; 80048; 80053; 81003; 81015; 83605; 84484; 85025; 85610; 85730; 86140; 87040; 87077; 87086; 87186; 87205; 87641; 93005; 99239; A9270-GY; J0696; J1642; J1650; J2543; Q9967

== ENCOUNTER 2017-06-22 18:19 | Inpatient (IN) | payer BC, MEDICARE ==
[2017-06-22] MEDS ORDERED: NS 0.9% 1000 ML* 2,000 ML IV ONE (19:44)
[2017-06-22] MEDS ORDERED: Piperacillin/Tazobac ADVAN(*) 3.375 GM in NS 0.9% 100 ML* 100 ML IVPB ONE (20:04)
[2017-06-22] MEDS ORDERED: LORazepam INJ* 2 MG/ML 1 ML VIAL IV ONE (20:11)
[2017-06-22 20:21] LABS: Hematocrit 35 % (42-52); Hemoglobin 11.8 g/dl (14.0-18.0); Mean Corpuscular HGB Conc 34 g/dl (31-36); Mean Corpuscular Hemoglobin 31 pg (27-31); Mean Corpuscular Volume 93 fL (80-94); Mean Platelet Volume 7 um3 (7.4-10.4); Red Blood Count 3.77 10^6/ul (4.0-5.4); Red Cell Distribution Width 14 % (10.5-15); White Blood Count 12.9 10^3/ul (3.5-10.8)
[2017-06-22 20:27] LABS: Urine Bacteria 1+ (Absent); Urine Bilirubin Negative (Negative); Urine Glucose Negative (Negative); Urine Nitrite Positive (Negative)
[2017-06-22 20:37] LABS: Albumin 3.7 g/dL (3.2-5.2); C Reactive Protein 181.93 mg/L (< 5.00); EGFR Non-African American 66.9 (>60); Globulin 3.7 g/dL (2-4); Potassium 3.7 mmol/L (3.5-5.0); Total Bilirubin 0.4 mg/dL (0.2-1.0); Total Protein 7.4 g/dL (6.4-8.9)
--- NOTE | 2017-06-22 21:11 | RAD ---
INDICATION: Left flank pain COMPARISON: Similar ultrasound examination dated June 04, 2017 TECHNIQUE: Real-time ultrasound examination of the bilateral kidneys and urinary bladder including grayscale and Doppler color flow analysis. FINDINGS: The first 15 images are erroneously labeled right kidney. The manufacturing advisor reported that the images are in fact of the left kidney. There is a moderate degree of hydronephrosis not seen on the previous ultrasound. The left kidney measures 12 x 5.3 x 4.4 cm. IMPRESSION: Interval development of left-sided hydronephrosis relative to the June 04, 2017 ultrasound.
[2017-06-22] MEDS: Acetaminophen TAB* 325 MG PO PRN (23:19)
[2017-06-22] MEDS: NS 0.9% 1000 ML* 1,000 ML IV SCH (23:19)
[2017-06-22] MEDS: Heparin VIAL(*) 5000 UNITS/ML VIAL (FIVE THOUSAND) SUBCUT SCH (23:19)
[2017-06-22] MEDS: Piperacillin/Tazobac ADVAN(*) 3.375 GM in D5W 100 ML BAG* 100 ML IVPB SCH (23:20)
[2017-06-22] MEDS: oxyCODONE TAB* 5 MG TAB PO PRN (23:24)
[2017-06-22] MEDS: LORazepam TAB(*) 0.5 MG PO PRN (23:24)
--- NOTE | 2017-06-23 00:51 | ED ---
Aimee Cabello Emily, scribed for German Oneil MD on 06/22/17 at 1939 . Abdominal Pain/Male - HPI Summary HPI Summary: This patient is a 62 year old M presenting to [facility] accompanied by family with a chief complaint of L kidney pain that began yesterday. The patient rates the pain 0/10 in severity. Symptoms aggravated by nothing. Symptoms alleviated by nothing. Patient reports chills, hot flashes, and fever. Pt reports having a dislodged urostomy tube. Pt reports symptoms feeling similar to previous sepsis symptoms. - History of Current Complaint Chief Complaint: EDFever Stated Complaint: FEVER/KIDNEY PAIN/UNABLE TO URINE Time Seen by Provider: 06/22/17 19:21 Hx Obtained From: Patient Onset/Duration: Sudden Onset, Lasting Days, Still Present Timing: Constant, Lasting Days Pain Intensity: 0 Pain Scale Used: 0-10 Numeric Location: Flank - Left Aggravating Factor(s): Nothing Alleviating Factor(s): Nothing Associated Signs And Symptoms: Positive: Other - Positive chills, hot flashes, and fever - Allergies/Home Medications Allergies/Adverse Reactions: Allergies Allergy/AdvReac Type Severity Reaction Status Date / Time Morphine Allergy Mild Itching Verified 06/22/17 18:44 PMH/Surg Hx/FS Hx/Imm Hx Previously Healthy: No Endocrine/Hematology History: Reports: Other Endocrine/Hematological Disorders - bladder CA w/ mets and chemo (completed recently) Denies: Hx Diabetes, Hx Systemic Lupus Erythematosus Cardiovascular History: Reports: Other Cardiovascular Problems/Disorders - 1993 AAA, RUPTURED, SURGERY Denies: Hx Congestive Heart Failure, Hx Hypertension, Hx Pacemaker/ICD GI History: Reports: Hx Gastroesophageal Reflux Disease - ON DAILY MEDS, NO Sx, Hx Irritable Bowel, Hx Ulcer - HX OF, Other GI Disorders - DUMPING SYNDROME History: Reports: Other Problems/Disorders - BLADDER CANCER Denies: Hx Dialysis, Hx Renal Disease Musculoskeletal History: Reports: Hx Back Problems Denies: Hx Rheumatoid Arthritis Sensory History: Denies: Hx Contacts or Glasses, Hx Hearing Aid Opthamlomology History: Denies: Hx Contacts or Glasses Neurological History: Reports: Other Neuro Impairments/Disorders - NERVE PAIN R/ T OPEN AHMET 10/12/15 Psychiatric History: Reports: Hx Panic Disorder - Cancer History Cancer Type, Location and Year: BLADDER CANCER Hx Chemotherapy: Yes - Surgical History Surgery Procedure, Year, and Place: [id number] Seven abdominal surgeries , all for ulcer or abdominal blockage,. 1993 ABD ANEURYS[place]PAIR [place] [facility] [place]. [place] colectomy/LYSIS OF ADHESIONS [facility] [place]. 09/2015 GALLBLADDER [facility]. 10/2015 & 12/2015 BLADDER TUMORS [facility] [place] Hx Anesthesia Reactions: No - Immunization History Date of Tetanus Vaccine: unk Date of Influenza Vaccine: 2014 Infectious Disease History: No Infectious Disease History: Denies: Traveled Outside the [place] in Last 30 Days - Family History Known Family History: Positive: Diabetes Negative: Hypertension - Social History Occupation: Retired Lives: With Family Alcohol Use: None Hx Substance Use: No Substance Use Type: Reports: None Substance Use Comment - Amount & Last Used: oxycodone rx'd for cancer pain but doesn't take them per pt. Hx Tobacco Use: Yes Smoking Status (MU): Current Every Day Smoker Type: Cigarettes Amount Used/How Often: 1/2 PPD X 40 YEARS Length of Time of Smoking/Using Tobacco: SINCE 20'S Have You Smoked in the Last Year: Yes Review of Systems Positive: Fever, Chills, Other - Positive hot flashes Positive: Abdominal Pain All Other Systems Reviewed And Are Negative: Yes Physical Exam Triage Information Reviewed: Yes Vital Signs On Initial Exam: Initial Vitals Temp Pulse Resp BP Pulse Ox 98.6 F 96 16 91/52 98 06/22/17 18:38 06/22/17 18:38 06/22/17 18:38 06/22/17 18:38 06/22/17 18:38 Vital Signs Reviewed: Yes Appearance: Positive: No Pain Distress, Ill-Appearing - Moderately Skin: Positive: Warm, Skin Color Reflects Adequate Perfusion, Dry Head/Face: Positive: Normal Head/Face Inspection Eyes: Positive: EOMI, AKIRA ENT: Positive: Other - Oral mucosa dry Neck: Positive: Supple, Nontender Respiratory/Lung Sounds: Positive: Clear to Auscultation, Breath Sounds Present Cardiovascular: Positive: RRR Abdomen Description: Positive: Soft, Other: - L flank tenderness Bowel Sounds: Positive: Present Musculoskeletal: Positive: Normal, Strength/ROM Intact Neurological: Positive: Normal, Sensory/Motor Intact, Alert, Oriented to Person Place, Time Psychiatric: Positive: Affect/Mood Appropriate - [place] Coma Scale Coma Scale Total: 15 Diagnostics - Vital Signs Vital Signs Temp Pulse Resp BP Pulse Ox 06/22/17 18:38 98.6 F 96 16 91/52 98 - Laboratory Lab Results: Lab Results 06/22/17 06/22/17 06/22/17 Range/Units 20:13 20:13 20:13 WBC (3.5-10.8) 10^3/ul RBC (4.0-5.4) 10^6/ul Hgb (14.0-18.0) g/dl Hct (42-52) % MCV (80-94) fL MCH (27-31) pg MCHC (31-36) g/dl RDW (10.5-15) % Plt Count (150-450) 10^3/ul MPV (7.4-10.4) um3 Neut % (Auto) (38-83) % Lymph % (Auto) (25-47) % [place] % (Auto) (1-9) % Eos % (Auto) (0-6) % Baso % (Auto) (0-2) % Absolute Neuts (auto) (1.5-7.7) 10^3/ul Absolute Lymphs (auto) (1.0-4.8) 10^3/ul Absolute Monos (auto) (0-0.8) 10^3/ul Absolute Eos (auto) (0-0.6) 10^3/ul Absolute Basos (auto) (0-0.2) 10^3/ul Absolute Nucleated RBC 10^3/ul Nucleated RBC % INR (Anticoag Therapy) 1.16 H (0.77-1.02) APTT 30.0 (26.0-36.3) seconds Sodium 131 L (133-145) mmol/L Potassium 3.7 (3.5-5.0) mmol/L Chloride 98 L (101-111) mmol/L Carbon Dioxide 27 (22-32) mmol/L Anion Gap 6 (2-11) mmol/L BUN 20 (6-24) mg/dL Creatinine 1.11 (0.67-1.17) mg/dL Est GFR ( Amer) 86.0 (>60) Est GFR (Non-Af Amer) 66.9 (>60) BUN/Creatinine Ratio 18.0 (8-20) Glucose 98 (70-100) mg/dL Lactic Acid (0.5-2.0) mmol/L Calcium 9.0 (8.6-10.3) mg/dL Total Bilirubin 0.40 (0.2-1.0) mg/dL AST 14 (13-39) U/L ALT 15 (7-52) U/L Alkaline Phosphatase 94 (34-104) U/L C-Reactive Protein 181.93 H (< 5.00) mg/L B-Natriuretic Peptide 55 ( - 100) pg/mL Total Protein 7.4 (6.4-8.9) g/dL Albumin 3.7 (3.2-5.2) g/dL Globulin 3.7 (2-4) g/dL Albumin/Globulin Ratio 1.0 (1-3) Lipase 34 (11.0-82.0) U/L Urine Color Urine Appearance Urine pH (5-9) Ur Specific [place] (1.010-1.030) Urine Protein (Negative) Urine Ketones (Negative) Urine Blood (Negative) Urine Nitrate (Negative) Urine Bilirubin (Negative) Urine Urobilinogen (Negative) Ur Leukocyte Esterase (Negative) Urine WBC (Auto) (Absent) Urine RBC (Auto) (Absent) Ur Squamous Epith Cells (Absent) Urine Bacteria (Absent) Urine Glucose (Negative) 06/22/17 06/22/17 06/22/17 Range/Units 20:13 20:13 20:13 WBC 12.9 H (3.5-10.8) 10^3/ul RBC 3.77 L (4.0-5.4) 10^6/ul Hgb 11.8 L (14.0-18.0) g/dl Hct 35 L (42-52) % MCV 93 (80-94) fL MCH 31 (27-31) pg MCHC 34 (31-36) g/dl RDW 14 (10.5-15) % Plt Count 288 (150-450) 10^3/ul MPV 7 L (7.4-10.4) um3 Neut % (Auto) 79.0 (38-83) % Lymph % (Auto) 12.2 L (25-47) % [place] % (Auto) 8.4 (1-9) % Eos % (Auto) 0.1 (0-6) % Baso % (Auto) 0.3 (0-2) % Absolute Neuts (auto) 10.2 H (1.5-7.7) 10^3/ul Absolute Lymphs (auto) 1.6 (1.0-4.8) 10^3/ul Absolute Monos (auto) 1.1 H (0-0.8) 10^3/ul Absolute Eos (auto) 0 (0-0.6) 10^3/ul Absolute Basos (auto) 0 (0-0.2) 10^3/ul Absolute Nucleated RBC 0 10^3/ul Nucleated RBC % 0 INR (Anticoag Therapy) (0.77-1.02) APTT (26.0-36.3) seconds Sodium (133-145) mmol/L Potassium (3.5-5.0) mmol/L Chloride (101-111) mmol/L Carbon Dioxide (22-32) mmol/L Anion Gap (2-11) mmol/L BUN (6-24) mg/dL Creatinine (0.67-1.17) mg/dL Est GFR ( Amer) (>60) Est GFR (Non-Af Amer) (>60) BUN/Creatinine Ratio (8-20) Glucose (70-100) mg/dL Lactic Acid 1.1 (0.5-2.0) mmol/L Calcium (8.6-10.3) mg/dL Total Bilirubin (0.2-1.0) mg/dL AST (13-39) U/L ALT (7-52) U/L Alkaline Phosphatase (34-104) U/L C-Reactive Protein (< 5.00) mg/L B-Natriuretic Peptide ( - 100) pg/mL Total Protein (6.4-8.9) g/dL Albumin (3.2-5.2) g/dL Globulin (2-4) g/dL Albumin/Globulin Ratio (1-3) Lipase (11.0-82.0) U/L Urine Color Yellow Urine Appearance Cloudy Urine pH 5.0 (5-9) Ur Specific [place] 1.018 (1.010-1.030) Urine Protein 2+(100 mg/dl) H (Negative) Urine Ketones Negative (Negative) Urine Blood 1+ H (Negative) Urine Nitrate Positive H (Negative) Urine Bilirubin Negative (Negative) Urine Urobilinogen Negative (Negative) Ur Leukocyte Esterase 3+ H (Negative) Urine WBC (Auto) 3+(>20/hpf) H (Absent) Urine RBC (Auto) 3+(>10/hpf) H (Absent) Ur Squamous Epith Cells Present H (Absent) Urine Bacteria 1+ H (Absent) Urine Glucose Negative (Negative) Result Diagrams: 06/22/17 20:13 06/22/17 20:13 Lab Statement: Any lab studies that have been ordered have been reviewed, and results considered in the medical decision making process. - Additional Comments Diagnostic Additional Comments: Renal US reveals, per radiologist, interval development of left-sided hydronephrosis relative to the June 04, 2017 ultrasound. ED physician has reviewed this radiology report and agrees. Abdominal Pain Fem Course/Dx - Course Course Of Treatment: DISCUSSED WITH DR KUMAR, UROLOGY. ADMIT HOSPITALIST. - Diagnoses Provider Diagnoses: Sepsis, Pyelonephritis - Provider Notifications Discussed Care Of Patient With: Moe Kumar Time Discussed With Above Provider: 20:00 Instructed by Provider To: Other - Consult with Dr. Kumar (urology) at 1999. Discussed plan of care for pt. No need for imaging at this time. Consult with Dr. Kumar (urology) at 2099. He agrees to admit the pt. Discharge - Discharge Plan Condition: Stable Disposition: ADMITTED TO [facility] documentation as recorded by the Aimee torres Emily accurately reflects the service I personally performed and the decisions made by me, German Oneil MD.
--- NOTE | 2017-06-23 01:52 | HP ---
CC: Dr. Melissa Hansen; Dr. Wilson; Dr. Kumar * HISTORY AND PHYSICAL: DATE OF ADMISSION: 06/22/17 PRIMARY CARE PROVIDER: Dr. Melissa Hansen. ATTENDING PHYSICIAN: Dr. Susie Lakhani * (dictated by Tiffany Tsang NP). CHIEF COMPLAINT: Fever and chills since last evening. HISTORY OF PRESENT ILLNESS: Mr. 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 The patient was status post a cystoprostatectomy in the beginning of 05/07/17 to 05/09/17, he was hospitalized here at [facility] for urosepsis 2 weeks after his procedure. At that time, the patient's urine was growing E. coli and Staphylococcus aureus. He was also found to be bacteremic with E. coli in 4/4 blood cultures. He was treated with IV Zosyn and then placed on Cipro at the time of discharge. The patient states that he had been feeling better since his admission. Yesterday, he reports developing fever, chills, and "shakes". At this time he reports pain in his back and bones due to the shaking, and abdominal discomfort.. He also reports that his "stent" has been dislodged. Due to his symptoms, he presented to the emergency room for further evaluation. While in the emergency room, the patient was found to be afebrile and hypotensive with systolic blood pressures in the 90s. He had labs drawn with the white blood cell count of 12.9, he had CRP of 181. He had urinalysis significant for 1+ blood, nitrite positive, leukocyte esterase 3+, wbc's 3+, rbc 's 3+, squamous epithelial cells present, and blood 1+. He had 2 L of normal saline ordered and lorazepam for anxiety. He also underwent a renal ultrasound showing interval development of left-sided hydronephrosis. The emergency room provider contacted Dr. Kumar, who recommended the patient be admitted for urosepsis. The hospitalists were asked to evaluate the patient for admission. PAST MEDICAL HISTORY: 1. Urethral and bladder carcinoma. 2. Short-gut syndrome. PAST SURGICAL HISTORY: 1. Status post partial gastrectomy. 2. Status post colectomy. 3. Status post lysis of adhesions. 4. Abdominal aortic aneurysm repair. 5. Status post cholecystectomy. 6. Status post cystoprostatectomy. 7. Status post TURP. 8. Status post multiple abdominal surgeries. MEDICATIONS: Home medications include: 1. Sertraline 50 mg oral every morning. 2. Oxycodone 5 mg oral every 4 hours as needed for pain. 3. Omeprazole 20 mg oral daily. 4. Vitamin B12 injection every 14 days. 5. Acetaminophen 650 mg oral every 6 hours as needed for fever and chills. 6. Lorazepam 0.5 mg twice daily as needed for anxiety. ALLERGIES: MORPHINE causes itching. FAMILY HISTORY: The patient's father had an DE in his 70s and a history of diabetes mellitus. The patient's mother had a history of brain cancer and a brother with a history of lymphoma. SOCIAL HISTORY: The patient currently smokes half a pack a day. He smokes for greater than 30 years. He denies alcohol or recreational drug use. He lives with his and granddaughters. His , Idalia Pruett, will be his surrogate decision maker in the event he is unable to make decisions for himself. REVIEW OF SYSTEMS: I performed a 14-point review of systems. All the pertinent positives and negatives are mentioned in the history of present illness. Remaining of the review of systems is negative. PHYSICAL EXAMINATION GENERAL: The patient is alert, pleasant, appears to be in no acute distress. VITAL SIGNS: Temperature 98.6, heart rate 96, respiratory rate 16, O2 sat 98% on room air, blood pressure 91/52. HEENT: Normocephalic, atraumatic. Pupils equal and reactive to light. Extraocular movements are intact. LUNGS: There is no accessory muscle use. Lungs are clear to auscultation bilaterally. HEART: Regular rate and rhythm. S1, S2 present. There are no murmurs, rubs, or gallops heard. ABDOMEN: Soft, nontender, nondistended. There are bowel sounds present x4. The patient has left CVA tenderness. EXTREMITIES: There is no lower extremity edema. DP and PT pulses are 2+ and symmetric. MUSCULOSKELETAL: There is no clubbing or cyanosis noted. The patient exhibits good strength in all extremities. NEUROLOGIC: The patient is alert and oriented x4. Cranial nerves II through XII are grossly intact. PSYCHOLOGICAL: The patient is calm and cooperative. SKIN: There are no rashes or abnormalities seen. DIAGNOSTIC STUDIES/LABORATORY DATA: Sodium 131, potassium 3.7, chloride 98, CO2 27, BUN 20, creatinine 1.11, glucose 98. CRP 181.93. White blood cell count 12.9, hemoglobin 11.8, hematocrit 35, platelet count 288. Urinalysis: Significant for blood 1+, nitrite positive, leukocyte esterase 3+, wbc's 3+, rbc's 3+, squamous epithelial cells present, bacteria 1+, and protein 2+. Renal ultrasound from today. Radiologist's impression: Interval development of left-sided hydronephrosis. IMPRESSION: Mr. Pruett is a 62-year-old male with past medical history significant for urethral and bladder carcinoma and short-gut syndrome, who presents to the emergency room with complaints of fever and chills. He will be admitted under observation for urosepsis. ASSESSMENT/PLAN: 1. Urosepsis. The patient was ordered 2 L of saline while in the emergency room. His lactic acid is 1.1. He had blood cultures obtained and he was initiated on Zosyn in the emergency room. Dr. Kumar with urology was consulted and recommended admitting the patient for urosepsis with plans for him to see the patient in the morning. The patient will be continued on normal saline and Zosyn. He is currently afebrile. He is meeting systemic inflammatory response syndrome criteria on admission with tachycardia and leukocytosis and he is also hypotensive. He is meeting qSOFA with 1 point for hypotension on admission. 2. Fluids, electrolytes, and nutrition. The patient will be on a regular diet. 3. Code status. Full code. 4. DVT prophylaxis. He is at a high risk and will be placed on subcu heparin. 5. Disposition. Observation. TIME SPENT: Time for this admission was approximately 60 minutes, greater than half of that was spent with the patient and discussing medications, past medical history, and the events leading up to his arrival today and performing a physical examination. The case has been reviewed with the attending, Dr. Lakhani, who agrees with the plan of care. Reviewed by FREDA DONATO 06/23/17 [id number]/[facility] #: [id number] CARLOS
[2017-06-23] MEDS: oxyCODONE TAB* 5 MG TAB PO PRN ×3 (03:42→23:40)
[2017-06-23] MEDS: Heparin VIAL(*) 5000 UNITS/ML VIAL (FIVE THOUSAND) SUBCUT SCH ×4 (05:30→23:47)
[2017-06-23] MEDS: Piperacillin/Tazobac ADVAN(*) 3.375 GM in D5W 100 ML BAG* 100 ML IVPB SCH ×3 (08:16→23:47)
[2017-06-23] MEDS: Sertraline* 50 MG TAB PO SCH (08:19)
[2017-06-23] MEDS: Omeprazole CAP* 20 MG PO SCH (08:47)
--- NOTE | 2017-06-23 12:21 | PN ---
Subjective Date of Service: 06/23/17 Interval History: Pt states he had chills then a sweat again after arriving on [facility] last evening. Pt states "I'm going home." He vehemently denies craving to smoke. Objective Active Medications: Acetaminophen (Tylenol Tab*) 650 mg PO Q4H PRN PRN Reason: FEVER/PAIN Last Admin: 06/22/17 23:19 Dose: 650 mg Heparin Sodium (Porcine) (Heparin Vial(*)) 5,000 units SUBCUT Q8HR [facility] Last Admin: 06/23/17 05:31 Dose: Not Given Piperacillin Sod/Tazobactam (Sod 3.375 gm/ Dextrose) 100 mls @ 25 mls/hr IVPB Q8H [facility] Last Admin: 06/23/17 08:16 Dose: 25 mls/hr Sodium Chloride (Ns 0.9% 1000 Ml*) 1,000 mls @ 125 mls/hr IV PER RATE [facility] Last Admin: 06/22/17 23:19 Dose: 125 mls/hr Lorazepam (Ativan Tab(*)) 0.5 mg PO BID PRN PRN Reason: ANXIETY Last Admin: 06/22/17 23:24 Dose: 0.5 mg Omeprazole (Prilosec Cap*) 20 mg PO QAM@0730 [facility] Last Admin: 06/23/17 08:47 Dose: 20 mg Oxycodone HCl (Roxycodone Tab*) 5 mg PO Q4H PRN PRN Reason: PAIN Last Admin: 06/23/17 03:42 Dose: 5 mg Sertraline HCl (Zoloft*) 50 mg PO QAM [facility] Last Admin: 06/23/17 08:19 Dose: 50 mg Vital Signs 06/22/17 06/22/17 06/22/17 22:11 22:55 23:24 Temperature 99.3 F Pulse Rate 96 Respiratory 20 18 18 Rate Blood Pressure 108/57 (mmHg) O2 Sat by Pulse 98 Oximetry 06/23/17 06/23/17 06/23/17 01:59 03:05 03:42 Temperature 98.1 F Pulse Rate 95 Respiratory 18 16 18 Rate Blood Pressure 100/65 (mmHg) O2 Sat by Pulse 94 Oximetry 06/23/17 06/23/17 06/23/17 06:14 07:28 08:00 Temperature 98.6 F Pulse Rate 92 Respiratory 16 18 17 Rate Blood Pressure 100/56 (mmHg) O2 Sat by Pulse 99 Oximetry Oxygen Devices in Use Now: None Appearance: Alert, partly up in bed. Irritable but otherwise looks comfortable. Eyes: No Scleral Icterus Neck: NL Appearance and Movements; NL JVP, No Thyroid Enlargement, Masses Respiratory: Symmetrical Chest Expansion and Respiratory Effort, Clear to Auscultation, Clear to Percussion Cardiovascular: NL Sounds; No Murmurs; No JVD, RRR, No Edema, - Abdominal: - - Mod L CVA tenderness Extremities: No Edema, No Clubbing, Cyanosis, - Skin: No Rash or Ulcers, No Nodules or Sclerosis, - Neurological: Alert and Oriented x 3, NL Sensation, NL Gait Result Diagrams: 06/22/17 20:13 06/22/17 20:13 Additional Lab and Data: Lab Results 06/22/17 06/22/17 06/22/17 Range/Units 20:13 20:13 20:13 WBC (3.5-10.8) 10^3/ul RBC (4.0-5.4) 10^6/ul Hgb (14.0-18.0) g/dl Hct (42-52) % MCV (80-94) fL MCH (27-31) pg MCHC (31-36) g/dl RDW (10.5-15) % Plt Count (150-450) 10^3/ul MPV (7.4-10.4) um3 Neut % (Auto) (38-83) % Lymph % (Auto) (25-47) % [place] % (Auto) (1-9) % Eos % (Auto) (0-6) % Baso % (Auto) (0-2) % Absolute Neuts (auto) (1.5-7.7) 10^3/ul Absolute Lymphs (auto) (1.0-4.8) 10^3/ul Absolute Monos (auto) (0-0.8) 10^3/ul Absolute Eos (auto) (0-0.6) 10^3/ul Absolute Basos (auto) (0-0.2) 10^3/ul Absolute Nucleated RBC 10^3/ul Nucleated RBC % INR (Anticoag Therapy) 1.16 H (0.77-1.02) APTT 30.0 (26.0-36.3) seconds Sodium 131 L (133-145) mmol/L Potassium 3.7 (3.5-5.0) mmol/L Chloride 98 L (101-111) mmol/L Carbon Dioxide 27 (22-32) mmol/L Anion Gap 6 (2-11) mmol/L BUN 20 (6-24) mg/dL Creatinine 1.11 (0.67-1.17) mg/dL Est GFR ( Amer) 86.0 (>60) Est GFR (Non-Af Amer) 66.9 (>60) BUN/Creatinine Ratio 18.0 (8-20) Glucose 98 (70-100) mg/dL Lactic Acid (0.5-2.0) mmol/L Calcium 9.0 (8.6-10.3) mg/dL Total Bilirubin 0.40 (0.2-1.0) mg/dL AST 14 (13-39) U/L ALT 15 (7-52) U/L Alkaline Phosphatase 94 (34-104) U/L C-Reactive Protein 181.93 H (< 5.00) mg/L B-Natriuretic Peptide 55 ( - 100) pg/mL Total Protein 7.4 (6.4-8.9) g/dL Albumin 3.7 (3.2-5.2) g/dL Globulin 3.7 (2-4) g/dL Albumin/Globulin Ratio 1.0 (1-3) Lipase 34 (11.0-82.0) U/L Urine Color Urine Appearance Urine pH (5-9) Ur Specific [place] (1.010-1.030) Urine Protein (Negative) Urine Ketones (Negative) Urine Blood (Negative) Urine Nitrate (Negative) Urine Bilirubin (Negative) Urine Urobilinogen (Negative) Ur Leukocyte Esterase (Negative) Urine WBC (Auto) (Absent) Urine RBC (Auto) (Absent) Ur Squamous Epith Cells (Absent) Urine Bacteria (Absent) Urine Glucose (Negative) 06/22/17 06/22/17 06/22/17 Range/Units 20:13 20:13 20:13 WBC 12.9 H (3.5-10.8) 10^3/ul RBC 3.77 L (4.0-5.4) 10^6/ul Hgb 11.8 L (14.0-18.0) g/dl Hct 35 L (42-52) % MCV 93 (80-94) fL MCH 31 (27-31) pg MCHC 34 (31-36) g/dl RDW 14 (10.5-15) % Plt Count 288 (150-450) 10^3/ul MPV 7 L (7.4-10.4) um3 Neut % (Auto) 79.0 (38-83) % Lymph % (Auto) 12.2 L (25-47) % [place] % (Auto) 8.4 (1-9) % Eos % (Auto) 0.1 (0-6) % Baso % (Auto) 0.3 (0-2) % Absolute Neuts (auto) 10.2 H (1.5-7.7) 10^3/ul Absolute Lymphs (auto) 1.6 (1.0-4.8) 10^3/ul Absolute Monos (auto) 1.1 H (0-0.8) 10^3/ul Absolute Eos (auto) 0 (0-0.6) 10^3/ul Absolute Basos (auto) 0 (0-0.2) 10^3/ul Absolute Nucleated RBC 0 10^3/ul Nucleated RBC % 0 INR (Anticoag Therapy) (0.77-1.02) APTT (26.0-36.3) seconds Sodium (133-145) mmol/L Potassium (3.5-5.0) mmol/L Chloride (101-111) mmol/L Carbon Dioxide (22-32) mmol/L Anion Gap (2-11) mmol/L BUN (6-24) mg/dL Creatinine (0.67-1.17) mg/dL Est GFR ( Amer) (>60) Est GFR (Non-Af Amer) (>60) BUN/Creatinine Ratio (8-20) Glucose (70-100) mg/dL Lactic Acid 1.1 (0.5-2.0) mmol/L Calcium (8.6-10.3) mg/dL Total Bilirubin (0.2-1.0) mg/dL AST (13-39) U/L ALT (7-52) U/L Alkaline Phosphatase (34-104) U/L C-Reactive Protein (< 5.00) mg/L B-Natriuretic Peptide ( - 100) pg/mL Total Protein (6.4-8.9) g/dL Albumin (3.2-5.2) g/dL Globulin (2-4) g/dL Albumin/Globulin Ratio (1-3) Lipase (11.0-82.0) U/L Urine Color Yellow Urine Appearance Cloudy Urine pH 5.0 (5-9) Ur Specific [place] 1.018 (1.010-1.030) Urine Protein 2+(100 mg/dl) H (Negative) Urine Ketones Negative (Negative) Urine Blood 1+ H (Negative) Urine Nitrate Positive H (Negative) Urine Bilirubin Negative (Negative) Urine Urobilinogen Negative (Negative) Ur Leukocyte Esterase 3+ H (Negative) Urine WBC (Auto) 3+(>20/hpf) H (Absent) Urine RBC (Auto) 3+(>10/hpf) H (Absent) Ur Squamous Epith Cells Present H (Absent) Urine Bacteria 1+ H (Absent) Urine Glucose Negative (Negative) Assess/Plan/Problems-Billing Assessment: - Patient Problems (1) UTI (urinary tract infection) Current Visit: No Status: Suspected Priority: High Onset Date: 06/07/14 Comment: with sepsis. Fever, leukocytosis. Urine and blood C&S pending. R ureteroilestomy in place. He may be immunocomprimised as he has a solid tumor. (2) Bladder cancer Current Visit: Yes Status: Acute Comment: Recent urologic surgery in [place]. Under care of Dr. Herrera, plan for immunotx. (3) Tobacco abuse Current Visit: Yes Status: Acute Code(s): Z72.0 - TOBACCO USE SNOMED Code( s): 237345165 Comment: Pt declined my offer of nicotine patch or inhaler. (4) Short gut syndrome Current Visit: Yes Status: Acute Code(s): K91.2 - POSTSURGICAL MALABSORPTION , NOT ELSEWHERE CLASSIFIED SNOMED Code(s): 41019850 Comment: Dx noted.
[2017-06-23] MEDS: NS 0.9% 1000 ML* 1,000 ML IV SCH ×3 (13:33→21:28)
[2017-06-23] MEDS: Acetaminophen TAB* 325 MG PO PRN (14:10)
[2017-06-23] MEDS ORDERED: Gentamicin ADULT (*) 140 MG in NS 0.9% 100 ML* 100 ML IVPB ONE (15:00)
--- NOTE | 2017-06-23 15:43 | RAD ---
INDICATION: Stent evaluation. COMPARISON: KUB dated June 04, 2017 TECHNIQUE: A single AP view of the abdomen was obtained. FINDINGS: The left ureteral stent is absent. The right ureteral stent is unchanged from the prior KUB. Surgical material is again seen overlying the left upper quadrant. Cast and stool seen throughout the length of the colon. IMPRESSION: INTERVAL REMOVAL OF THE LEFT URETERAL STENT.
[2017-06-23] MEDS ORDERED: NS 0.9% 1000 ML* 1,000 ML IV ONE (15:54)
[2017-06-23] MEDS: LORazepam TAB(*) 0.5 MG PO PRN (22:11)
[2017-06-24] MEDS: NS 0.9% 1000 ML* 1,000 ML IV SCH ×2 (01:28→05:42)
[2017-06-24] MEDS: Heparin VIAL(*) 5000 UNITS/ML VIAL (FIVE THOUSAND) SUBCUT SCH (05:44)
[2017-06-24 05:52] LABS: Hematocrit 29 % (42-52); Hemoglobin 9.8 g/dl (14.0-18.0); Mean Corpuscular HGB Conc 34 g/dl (31-36); Mean Corpuscular Hemoglobin 32 pg (27-31); Mean Corpuscular Volume 94 fL (80-94); Mean Platelet Volume 7 um3 (7.4-10.4); Red Blood Count 3.06 10^6/ul (4.0-5.4); Red Cell Distribution Width 14 % (10.5-15); White Blood Count 9.5 10^3/ul (3.5-10.8)
[2017-06-24] MEDS ORDERED: Gentamicin ADULT (*) 140 MG in NS 0.9% 100 ML* 100 ML IVPB ONE (06:00)
[2017-06-24 06:10] LABS: BUN/Creatinine Ratio 15.4 (8-20); Calcium 7.9 mg/dL (8.6-10.3); EGFR African American 108.2 (>60); EGFR Non-African American 84.1 (>60); Potassium 3.5 mmol/L (3.5-5.0)
[2017-06-24] MEDS: Piperacillin/Tazobac ADVAN(*) 3.375 GM in D5W 100 ML BAG* 100 ML IVPB SCH (07:56)
[2017-06-24] MEDS: Omeprazole CAP* 20 MG PO SCH (07:56)
[2017-06-24] MEDS: Acetaminophen TAB* 325 MG PO PRN (07:56)
[2017-06-24] MEDS: Sertraline* 50 MG TAB PO SCH (07:56)
[2017-06-24] MEDS ORDERED: Piperacillin/Tazobac ADVAN(*) 3.375 GM in NS 0.9% 100 ML* 100 ML IVPB SCH ×2 (10:33→15:30)
[2017-06-24 11:14] VITALS: BP 115/62
--- NOTE | 2017-06-25 08:15 | DS ---
CC: Dr. Melissa Hansen. * DISCHARGE SUMMARY: DATE OF ADMISSION: 06/22/17 DATE OF DISCHARGE: 06/24/17 ADMISSION DIAGNOSES: 1. Sepsis secondary to urinary tract infection. 2. Urethral and bladder carcinoma. DISCHARGE DIAGNOSES: 1. Sepsis secondary to urinary tract infection. 2. Urethral and bladder carcinoma. HOSPITAL COURSE: The patient is a 62-year-old gentleman who presented to [facility] with fevers and chills. Please see H and P for further details. The patient was admitted with a diagnosis of sepsis felt likely to be secondary to urinary source. The patient was placed on Zosyn and given gentamicin. The patient rapidly improved. His urine did grow out staph aureus. The patient was anxious to go home on 06/24/17. He was placed on doxycycline which he was sensitive to. The patient will be followed with his PCP and return to the ED if symptoms recur. PHYSICAL EXAMINATION: On the date of discharge: Well-developed, well- nourished gentleman sitting up in bed in no acute distress. Vital Signs: Blood pressure is 115/62, heart rate is 74 beats per minute, respiratory rate is 16 breaths per minute, pulse ox 99% on room air, and temperature 97.7 degrees. HEENT: Normocephalic, atraumatic. Pupils are equal, round, and reactive to light. Moist mucous membranes. Neck: Supple. No JVD, bruits, palpable thyroid, or lymphadenopathy. Chest: Clear to auscultation and percussion bilaterally. Cardiovascular Exam: S1 and S2 appreciated. Abdominal Exam: Positive bowel sounds in all 4 quadrants. Soft, nontender, and nondistended. Extremities: No cyanosis, clubbing, or edema. Neuro: Alert and oriented x3. Moves all extremities. Skin: No rashes. STUDIES DONE WHILE IN THE HOSPITAL: Renal ultrasound, 06/22/17. Impression: Interval development of left-sided hydronephrosis relative to the 06/04/17 ultrasound. Abdominal x-ray, 06/23/14. Impression: Interval removal of left ureteral stent. DISCHARGE MEDICATIONS: 1. Lorazepam 0.5 mg twice a day as needed. 2. Vitamin B12 one injection IM q.14 days. 3. Acetaminophen 650 mg every 6 hours as needed. 4. Zoloft 50 mg in the morning. 5. Oxycodone 5 mg every 4 hours as needed for pain. 6. Omeprazole 200 mg in the morning. 7. Doxycycline 100 mg twice a day for 10 days. DISCHARGE PLAN: The patient will be discharged to home. He should complete the entire course of antibiotics. The patient will return to the ED if symptoms recur. TIME SPENT: Over 35 minutes was spent on this discharge, more than 20 minutes of which was spent in direct [id number] contact with the patient, evaluation, physical exam, counseling, and coordination of care. [id number]/[facility] #: [id number] MTDD
== END 2017-06-24 13:00 | disposition home or self-care (01) | DRG 720 ==
LOC: ED 18:19 → MED 21:43 → OBSVTOIN 06-23 13:32
PROVIDERS: ADMIT Pediatrics; ATTEND Internal Medicine
DX: A41.9 Sepsis, unspecified organism (principal); I95.9 Hypotension, unspecified; K91.2 Postsurgical malabsorption, not elsewhere classified; C67.9 Malignant neoplasm of bladder, unspecified; C68.0 Malignant neoplasm of urethra; N13.30 Unspecified hydronephrosis; N39.0 Urinary tract infection, site not specified; B95.61 Methicillin susceptible Staphylococcus aureus infection as the cause of diseases classified elsewhere; Z79.1 Long term (current) use of non-steroidal anti-inflammatories (NSAID); Z79.891 Long term (current) use of opiate analgesic; Z79.899 Other long term (current) drug therapy; Z88.5 Allergy status to narcotic agent; Z83.3 Family history of diabetes mellitus; Z82.49 Family history of ischemic heart disease and other diseases of the circulatory system; Z80.7 Family history of other malignant neoplasms of lymphoid, hematopoietic and related tissues; Z80.8 Family history of malignant neoplasm of other organs or systems; F17.210 Nicotine dependence, cigarettes, uncomplicated; Z93.2 Ileostomy status
CPT/HCPCS: 36415; 74000; 76775; 80048; 80053; 81003; 81015; 83605; 83690; 83880; 85025; 85610; 85730; 86140; 87040; 87077; 87086; 87186; A9270-GY; J1580; J1642; J1644; J2060; J2543

== ENCOUNTER 2017-11-25 13:32 | Inpatient (IN) | payer BC, MEDICARE ==
[2017-11-25] MEDS ORDERED: NS 0.9% 1000 ML* 2,000 ML IV ONE ×2 (13:38→14:16)
[2017-11-25] MEDS ORDERED: Naloxone* 0.4 MG/ML 1 ML VIAL IV PUSH ONE ×2 (13:38→16:09)
[2017-11-25 13:49] LABS: ABS Basophils 0 10^3/ul (0-0.2); ABS Eosinophils 0.1 10^3/ul (0-0.6); ABS Lymphocytes 1.5 10^3/ul (1.0-4.8); ABS Monocytes 0.3 10^3/ul (0-0.8); ABS Neutrophils 4.5 10^3/ul (1.5-7.7); ABS Nucleated RBC 0 10^3/ul; Hematocrit 34 % (42-52); Hemoglobin 11.5 g/dl (14.0-18.0); Lymphocyte % 23.2 % (25-47); Mean Corpuscular HGB Conc 34 g/dl (31-36); Mean Corpuscular Hemoglobin 31 pg (27-31); Mean Corpuscular Volume 90 fL (80-94); Nucleated Red Blood Cells % 0.1; Platelet Count 234 10^3/ul (150-450); Red Blood Count 3.73 10^6/ul (4.0-5.4); Red Cell Distribution Width 15 % (10.5-15); White Blood Count 6.5 10^3/ul (3.5-10.8)
[2017-11-25 13:57] LABS: INR 1.03 (0.77-1.02)
[2017-11-25 14:16] LABS: EGFR Non-African American 57.8 (>60)
--- NOTE | 2017-11-25 14:27 | RAD ---
Indication: Overdose. Single frontal view of the chest performed at 1152 hours was reviewed. Comparison is made with previous exam dated September 13, 2017. No mediastinal shift is noted. Heart is of normal size and configuration. Lung kuo appear clear. Central line is in place. No pneumothorax is noted. IMPRESSION: NO ACTIVE CARDIOPULMONARY DISEASE IS NOTED.
--- NOTE | 2017-11-25 14:53 | HP ---
H&P (Free Text) History and Physical: CRITICAL CARE MEDICINE DATE: 11/25/17 TIME: 1400 PRIMARY ONCOLOGY PROVIDER: Sharon REFERRING PROVIDER: Clarice REASON/CHIEF COMPLAINT: OOH resp arrest HISTORY OF PRESENT ILLNESS: 62 M with metastatic bladder ca undergoing immunotx with decreased quality of life relative to his desired presenting as 911 call for respiratory arrest and coma. Concerns from family and empty pill bottle for believed overdose of significant amounts of oxycodone and ativan at least. Bag ventilation en route as narcan ineffective and aborted intubation attempt. On arrival pt was pink and had good pulses with sbp >90. Bag ventilation. opa in place. pupils were dil. attempted narcan again with preparation for intubation needs. IVs, IVF, labs being drawn. Pts arrived. She indicated pt being more depressed about his quality of life and end stage cancer treatments. Had sent message indicating his goodbyes. She had rushed home to find him. She expresses concerns about his condition and was asked about DNR for which she does not believe he has ever signed but expresses as his desires would be DNR/DNI. We discussed the situation and explained we are ok supporting him now with non-invasive ventilation since he has some spont breathing and hemodynamically maintaining in order to support time to allow best medial care for his wishes. She agreed and wants him to be DNR/DNI, trial niv. REVIEW OF SYSTEMS: As per HPI otherwise limited sec to acuity. PAST MEDICAL HISTORY: As per HPI. urethrial cx; bcg tx. metastatic urethethial ca; chemo cis and gem 08/2016; PET pos to hilar; AAA repair, short gut syndrome, colectomy, cholecystectomy. MEDICATIONS: Reviewed. ALLERGIES: Morphine? SOCIAL HISTORY: FAMILY HISTORY: Noncontributory at present. PHYSICAL EXAM: Vital Signs: Reviewed. Neurologic: coma. has mild pupil response. no gag. no response to pain. HEENT: anciteric, pupils 4mm and sluggish. Cardiovascular: S1 S2, reg. Respiratory: bl rales and rhonchi Abdomen: soft, accessory msk exhalation work; multiple scars Extremities: warm Access: piv LABS: Reviewed. IMAGING: Reviewed. MEDICATIONS: Reviewed. ASSESSMENT: 62 M Acute hpercarbic and hypoxic resp failure Coma Overdose with narcs and benzos Metastatic CA Aspiration pneumonitits PLAN: Neurologic: coma sec to overdose. able to ventilate for now with bipap assist. ABG already equilibrated a little and allow compensation from metabolic acidosis. No need for CT at present as not going to pursue aggressive measures according to wishes. All the same see if we can support in time. Had narcan without affect. May try again with time. Cardiovascular: Hemodyanmically holding and perfusion curve improving. IVF. Respiratory: bipap tolerating for now. will revisit plans with family and support. rationally making decisions and understanding of desired support for now. This is the best [facility] care for his condition currently without harm. Gastrointestinal: npo currently. sup Renal/Metabolic: f/u labs and potentials for nicolle. Infectious Disease: no infective burden but may have aspirated- no abx for that Hematology: f/u counts. Endocrine: may trial empiric steroids. Musculoskeletal: icu care Psych/Social: will discuss further with and family Supportive and preventative care as ordered. SUP: ppi VTE prophylaxis: heparin Hernandez catheter given critical illness, monitoring needs for accurate assessment of NICOLLE and KDIGO criteria for critically ill patients and to avoid potential harms of urinary retention, skin breakdown/ulcers. Disposition: ICU Code Status: DNR/DNI Critical Care Time: 45min FPoly Willingham DO
[2017-11-25 15:42] LABS: Urine Appearance Cloudy; Urine Blood 3+ (Negative); Urine Color Yellow; Urine Ketones Negative (Negative); Urine Protein 2+(100 mg/dL) (Negative); Urine Red Blood Cell 3+(>10/hpf) (Absent); Urine Specific Gravity 1.008 (1.010-1.030); Urine Urobilinogen Negative (Negative); Urine White Blood Cell 3+(>20/hpf) (Absent)
[2017-11-25] MEDS ORDERED: Albuterol 2.5 MG/3 ML NEB.SOL* (0.083%) INH PRN (16:36)
[2017-11-25] MEDS ORDERED: Haloperidol INJ IV/IM* 5 MG/ML AMP IV SLOW PU PRN (16:36)
--- NOTE | 2017-11-25 16:36 | PN ---
Progress Note - Progress Note Date of Service: 11/25/17 Note: CRITICAL CARE MEDICINE DATE: 11/25/17 TIME: 1420 Pt and family updated again. Pt tolerarting bipap. pupils were smaller and post another narcan more reactive and larger with mild cough increase. Allow him to continue as is. Explained our support and care and family very understanding. Time. Disposition: ICU Code Status: DNR/DNI Critical Care Time: 5min Jacqueline Willingham DO
--- NOTE | 2017-11-25 18:55 | PN ---
Progress Note - Progress Note Date of Service: 11/25/17 SOAP: Subjective: [He is non responsive on positive pressure ventilation. Increased depression over past several weeks, stopped taking depression medication. Back pain over weekend and had expressed that he may not want to continue therapy given his cancer is terminal. This am sent text saying good by to family. Found non responsive with empty bottle by bed. He may have taken as much as 80 mg of lorazepam. 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 Has has a CR by PET on pembrolizumab. Has had recurrent UTIs, now on suppressive antibiotics. Some back pain but not taking prn pain medication. Frustrated by ED. MEDICATIONS Albuterol (Ventolin 2.5 Mg/3 Ml Neb.Maria Victoria*) 2.5 mg INH Q4H PRN PRN Reason: SOB/WHEEZING Haloperidol Lactate (Haldol Inj Iv/Im*) 2 mg IV SLOW PU Q4H PRN PRN Reason: AGITATION Heparin Sodium (Porcine) (Heparin Vial(*)) 5,000 units SUBCUT Q8HR [facility] Potassium Chloride 20 meq/ (Lactated Ringer's) 1,010 mls @ 100 mls/hr IVPB Q10H [facility] Last Admin: 11/25/17 17:47 Dose: 100 mls/hr Objective: [] Vital Signs Temp Pulse Resp BP Pulse Ox 97.4 F 72 7 85/54 100 11/25/17 14:55 11/25/17 18:30 11/25/17 18:30 11/25/17 18:30 11/25/17 18:30 HEENT: Face mask, Pupils contracted and symmetric. +BS BL RRR S1S2 +BS yellow urine ext warm Assessment: []62 year old with metastatic cancer on pembrolizumab. Had generally been doing well with minimal side effects and tumor response. However, his QOL was not up to his standard. Limited by back pain at times, he has had urinary infection and very frustrated by erectile dysfunction. Has has multiple discussions about terminal nature of cancer and stopping therapy but had decided to continue. Now presents with progressive depression and suicide attempt. Plan: []1. Agree with DNR/DNI 2. He appears to have good organ function and was found with a pulse, period of continuing current support is reasonable. He may have taken over 80 mg of lorazepam with half life of 12 hrs. 3. If survives can transition to hospice and may have quality time with family.
[2017-11-25] MEDS: Heparin VIAL(*) 5000 UNITS/ML VIAL (FIVE THOUSAND) SUBCUT SCH (21:50)
--- NOTE | 2017-11-25 22:45 | ED ---
Paul Cabello Nilda, scribed for German Oneil MD on 11/25/17 at 1624 . Substance Abuse/Use - HPI Summary HPI Summary: LVL 5 Caveat: Hx and PE limited due to pt unresponsiveness. ABC Alert 13:12. This patient is a 62 year old M ANGELA accompanied by EMS with a chief complaint of constant unresponsiveness s/p intentional OD on 90 Oxycodone and Ativan pills this afternoon, per EMS and . 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 Pt left a note and was found slumped over fire pit ring with face in the pit. - History Of Current Complaint Chief Complaint: EDOverdose Stated Complaint: OVERDOSE Time Seen by Provider: 11/25/17 13:37 Hx Obtained From: Patient, Family/Rate Clerk Ingestion History: Type/Name Of Drug - 90 pills Oxycodone and Ativan Overdose Characteristics: Oral Timing Of Abuse: Binge Use Character: Other - unresponsive Alleviating Factor(s): Nothing Associated Signs And Symptoms: Vomiting, Other: - unresponsiveness Related Hx: Suicidal - Allergies/Home Medications Allergies/Adverse Reactions: Allergies Allergy/AdvReac Type Severity Reaction Status Date / Time morphine Allergy Mild Itching Verified 09/12/17 08:33 Home Medications: Home Medications Cyanocobalamin INJ * [Vitamin B12 INJ *] 1,000 mcg IM Q14D 11/25/17 [History Confirmed 11/25/17] LORazepam TAB(*) [Ativan 1 MG TAB (*)] 1 - 3 mg PO BEDTIME PRN MDD 3 mg [History Confirmed 11/25/17] Medical Marijuana 1 dose INH Q4HR PRN 11/25/17 [History Confirmed 11/25/17] Oxycodone HCl [Oxaydo] 5 - 10 mg PO Q4HR PRN MDD 60 mg 11/25/17 [History Confirmed 11/25/17] Pembrolizumab [Keytruda] 100 mg IV ONCE 11/25/17 [History Confirmed 11/25/17] Sertraline* [Zoloft*] 75 mg PO DAILY 11/25/17 [History Confirmed 11/25/17] PMH/Surg Hx/FS Hx/Imm Hx Endocrine/Hematology History: Denies: Hx Diabetes, Hx Systemic Lupus Erythematosus, Other Endocrine/ Hematological Disorders - bladder CA w/ mets and chemo (completed recently) Cardiovascular History: Reports: Other Cardiovascular Problems/Disorders - 1993 AAA, RUPTURED, SURGERY Denies: Hx Congestive Heart Failure, Hx Hypertension, Hx Pacemaker/ICD GI History: Reports: Hx Gall Bladder Disease, Hx Gastroesophageal Reflux Disease - ON DAILY MEDS, NO Sx, Hx Irritable Bowel, Hx Ileostomy - Reversed, Hx Ulcer - HX OF, Other GI Disorders - DUMPING SYNDROME History: Reports: Other Problems/Disorders - bladder ca with urostomy Denies: Hx Dialysis, Hx Renal Disease Musculoskeletal History: Reports: Hx Back Problems Denies: Hx Rheumatoid Arthritis Sensory History: Denies: Hx Contacts or Glasses, Hx Deafness, Hx Hearing Aid Opthamlomology History: Denies: Hx Contacts or Glasses Neurological History: Reports: Other Neuro Impairments/Disorders - NERVE PAIN R/ T OPEN AHMET 10/12/15 Psychiatric History: Reports: Hx Panic Disorder - Cancer History Cancer Type, Location and Year: BLADDER CANCER Hx Chemotherapy: Yes - Surgical History Surgery Procedure, Year, and Place: 4828-9162 Seven abdominal surgeries , all for ulcer or abdominal blockage,. 1993 ABD ANEURYSM REPAIR - [facility] [place]. 2013 colectomy/LYSIS OF ADHESIONS [facility] [place]. 09/2015 GALLBLADDER [facility]. 10/2015 & 12/2015 BLADDER TUMORS [facility] Hx Anesthesia Reactions: No - Immunization History Date of Tetanus Vaccine: unk Date of Influenza Vaccine: 2014 Infectious Disease History: No Infectious Disease History: Denies: Hx of Known/Suspected MRSA, Hx Shingles, Hx Tuberculosis, History Other Infectious Disease, Traveled Outside the [place] in Last 30 Days - Family History Known Family History: Positive: Diabetes Negative: Hypertension - Social History Alcohol Use: None Hx Substance Use: No Substance Use Type: Reports: None Substance Use Comment - Amount & Last Used: oxycodone rx'd for cancer pain but doesn't take them per pt. Hx Tobacco Use: Yes Smoking Status (MU): Current Every Day Smoker Type: Cigarettes Amount Used/How Often: 1/2 PPD X 40 YEARS Length of Time of Smoking/Using Tobacco: SINCE 20'S Have You Smoked in the Last Year: Yes Review of Systems - ROS Summary Review of Systems Summary: LVL 5 Caveat: Hx and PE limited due to pt unresponsiveness. Positive: Vomiting Neurological: Other - unresponsiveness Positive: Other - SI, intentional overdose All Other Systems Reviewed And Are Negative: No Physical Exam - Summary Physical Exam Summary: Eyes: 5mm pupil bilat nonreactive. Respiratory: Slow spontaneous respiration. Lungs clear. Cardiovascular: positive heart sounds. Neuro: Minimal response to pain Triage Information Reviewed: Yes Vital Signs On Initial Exam: Initial Vitals Temp Pulse Resp BP Pulse Ox 97.7 F 81 18 113/72 100 11/25/17 13:40 11/25/17 13:40 11/25/17 13:40 11/25/17 13:40 11/25/17 13:40 Vital Signs Reviewed: Yes Completion Of Physical Exam Limited Due To: Level 5 - LVL 5 Caveat: Hx and PE limited due to pt unresponsiveness. - Boaz Coma Scale Best Eye Response: 1 - None Best Motor Response: 1 - None Best Verbal Response: 1 - None Coma Scale Total: 3 Diagnostics - Vital Signs Vital Signs Temp Pulse Resp BP Pulse Ox 11/25/17 13:40 97.7 F 81 18 113/72 100 - Laboratory Lab Results: Lab Results 11/25/17 11/25/17 11/25/17 Range/Units 13:35 13:35 13:35 WBC (3.5-10.8) 10^3/ul RBC (4.0-5.4) 10^6/ul Hgb (14.0-18.0) g/dl Hct (42-52) % MCV (80-94) fL MCH (27-31) pg MCHC (31-36) g/dl RDW (10.5-15) % Plt Count (150-450) 10^3/ul MPV (7.4-10.4) um3 Neut % (Auto) (38-83) % Lymph % (Auto) (25-47) % [place] % (Auto) (0-7) % Eos % (Auto) (0-6) % Baso % (Auto) (0-2) % Absolute Neuts (auto) (1.5-7.7) 10^3/ul Absolute Lymphs (auto) (1.0-4.8) 10^3/ul Absolute Monos (auto) (0-0.8) 10^3/ul Absolute Eos (auto) (0-0.6) 10^3/ul Absolute Basos (auto) (0-0.2) 10^3/ul Absolute Nucleated RBC 10^3/ul Nucleated RBC % INR (Anticoag Therapy) 1.03 H (0.77-1.02) APTT 29.3 (26.0-36.3) seconds ABG pH (7.35-7.45) ABG pCO2 (35-45) mmHg ABG pO2 (80-100) mmHg ABG HCO3 (19-31) mmol/L ABG O2 Saturation (95-98) % ABG Base Excess (-2.0-2.0) Sodium 139 (139-145) mmol/L Potassium 3.4 L (3.5-5.0) mmol/L Chloride 107 (101-111) mmol/L Carbon Dioxide 24 (22-32) mmol/L Anion Gap 8 (2-11) mmol/L BUN 26 H (6-24) mg/dL Creatinine 1.26 H (0.67-1.17) mg/dL Est GFR ( Amer) 74.3 (>60) Est GFR (Non-Af Amer) 57.8 (>60) BUN/Creatinine Ratio 20.6 H (8-20) Glucose 121 H (70-100) mg/dL Lactic Acid (0.5-2.0) mmol/L Calcium 8.3 L (8.6-10.3) mg/dL Magnesium 1.8 L (1.9-2.7) mg/dL Total Bilirubin 0.20 (0.2-1.0) mg/dL AST 26 (13-39) U/L ALT 18 (7-52) U/L Alkaline Phosphatase 92 (34-104) U/L Ammonia 38 (16-53) mcmol/L Total Creatine Kinase 427 H (10-223) U/L CK-MB (CK-2) 24.5 H (0.6-6.3) ng/mL Troponin I 0.01 (<0.04) ng/mL C-Reactive Protein 2.84 (< 5.00) mg/L B-Natriuretic Peptide 13 ( - 100) pg/mL Total Protein 6.4 (6.4-8.9) g/dL Albumin 3.6 (3.2-5.2) g/dL Globulin 2.8 (2-4) g/dL Albumin/Globulin Ratio 1.3 (1-3) Lipase 52 (11.0-82.0) U/L TSH 2.86 (0.34-5.60) mcIU/mL Salicylates < 2.50 (<30) mg/dL Acetaminophen < 15 mcg/mL Serum Alcohol < 10 (<10) mg/dL 11/25/17 11/25/17 11/25/17 Range/Units 13:35 13:35 13:48 WBC 6.5 (3.5-10.8) 10^3/ul RBC 3.73 L (4.0-5.4) 10^6/ul Hgb 11.5 L (14.0-18.0) g/dl Hct 34 L (42-52) % MCV 90 (80-94) fL MCH 31 (27-31) pg MCHC 34 (31-36) g/dl RDW 15 (10.5-15) % Plt Count 234 (150-450) 10^3/ul MPV 7.0 L (7.4-10.4) um3 Neut % (Auto) 69.0 (38-83) % Lymph % (Auto) 23.2 L (25-47) % [place] % (Auto) 5.2 (0-7) % Eos % (Auto) 2.0 (0-6) % Baso % (Auto) 0.6 (0-2) % Absolute Neuts (auto) 4.5 (1.5-7.7) 10^3/ul Absolute Lymphs (auto) 1.5 (1.0-4.8) 10^3/ul Absolute Monos (auto) 0.3 (0-0.8) 10^3/ul Absolute Eos (auto) 0.1 (0-0.6) 10^3/ul Absolute Basos (auto) 0 (0-0.2) 10^3/ul Absolute Nucleated RBC 0 10^3/ul Nucleated RBC % 0.1 INR (Anticoag Therapy) (0.77-1.02) APTT (26.0-36.3) seconds ABG pH 7.26 L (7.35-7.45) ABG pCO2 49 H (35-45) mmHg ABG pO2 114 H (80-100) mmHg ABG HCO3 20.7 (19-31) mmol/L ABG O2 Saturation 98.7 H (95-98) % ABG Base Excess -5.2 L (-2.0-2.0) Sodium (139-145) mmol/L Potassium (3.5-5.0) mmol/L Chloride (101-111) mmol/L Carbon Dioxide (22-32) mmol/L Anion Gap (2-11) mmol/L BUN (6-24) mg/dL Creatinine (0.67-1.17) mg/dL Est GFR ( Amer) (>60) Est GFR (Non-Af Amer) (>60) BUN/Creatinine Ratio (8-20) Glucose (70-100) mg/dL Lactic Acid 3.0 H* (0.5-2.0) mmol/L Calcium (8.6-10.3) mg/dL Magnesium (1.9-2.7) mg/dL Total Bilirubin (0.2-1.0) mg/dL AST (13-39) U/L ALT (7-52) U/L Alkaline Phosphatase (34-104) U/L Ammonia (16-53) mcmol/L Total Creatine Kinase (10-223) U/L CK-MB (CK-2) (0.6-6.3) ng/mL Troponin I (<0.04) ng/mL C-Reactive Protein (< 5.00) mg/L B-Natriuretic Peptide ( - 100) pg/mL Total Protein (6.4-8.9) g/dL Albumin (3.2-5.2) g/dL Globulin (2-4) g/dL Albumin/Globulin Ratio (1-3) Lipase (11.0-82.0) U/L TSH (0.34-5.60) mcIU/mL Salicylates (<30) mg/dL Acetaminophen mcg/mL Serum Alcohol (<10) mg/dL Result Diagrams: 11/25/17 13:35 11/25/17 13:35 Lab Statement: Any lab studies that have been ordered have been reviewed, and results considered in the medical decision making process. - EKG 1341 Cardiac Rate: NL - 82 bpm EKG Rhythm: Sinus Rhythm ST Segment: Normal Ectopy: None Course/Dx - Course Course Of Treatment: LVL 5 Caveat: Hx and PE limited due to pt unresponsiveness. ABC Alert 13:12. CRITICAL CARE TIME < [address] BROOKE SAW THE PATIENT IN THE ED AND ADMITTED TO THE ICU - Diagnoses Provider Diagnoses: Overdose, Narcotic-induced respiratory depression Discharge - Sign-Out/Discharge Documenting (check all that apply): Discharge/Admit/Transfer - Discharge Plan Condition: Guarded Disposition: ADMITTED TO [facility] - Billing Disposition and Condition Condition: GUARDED Disposition: HOSP-[facility] [place] The documentation as recorded by the Paul torres Nilda accurately reflects the service I personally performed and the decisions made by me, German Oneil MD.
[2017-11-26 05:46] LABS: ABS Basophils 0 10^3/ul (0-0.2); ABS Eosinophils 0.1 10^3/ul (0-0.6); ABS Lymphocytes 1.3 10^3/ul (1.0-4.8); ABS Monocytes 0.6 10^3/ul (0-0.8); ABS Neutrophils 10.2 10^3/ul (1.5-7.7)
[2017-11-26 05:47] LABS: Hematocrit 36 % (42-52); Hemoglobin 12.3 g/dl (14.0-18.0); Mean Corpuscular HGB Conc 34 g/dl (31-36); Mean Corpuscular Hemoglobin 31 pg (27-31); Mean Corpuscular Volume 90 fL (80-94); Red Blood Count 3.98 10^6/ul (4.0-5.4); Red Cell Distribution Width 15 % (10.5-15); White Blood Count 12.3 10^3/ul (3.5-10.8)
[2017-11-26 05:51] LABS: EGFR Non-African American 72.9 (>60)
[2017-11-26 06:27] LABS: ABS Nucleated RBC 0 10^3/ul; Eosinophil % 0.6 % (0-6); Lymphocyte % 10.5 % (25-47); Nucleated Red Blood Cells % 0.1; Platelet Count 223 10^3/ul (150-450)
[2017-11-26] MEDS: Heparin VIAL(*) 5000 UNITS/ML VIAL (FIVE THOUSAND) SUBCUT SCH ×3 (06:38→22:04)
[2017-11-26] MEDS ORDERED: Magnesium Sulfate 2 GM IV* 2 GM/50 ML BAG IVPB ONE (10:07)
--- NOTE | 2017-11-26 12:06 | PN ---
Progress Note - Progress Note Date of Service: 11/26/17 Note: CRITICAL CARE MEDICINE DATE: 11/26/17 TIME: 1130 SUBJECTIVE: Patient seen and examined. family at bedside. PHYSICAL EXAM: Vital Signs: Reviewed. off bipap on 6L and sat holding. Neurologic: awaken to voice but sluggish. pupils reactive. able to communicate minimally but not much voice yet. lethargic HEENT: anciteric, mmm Cardiovascular: S1 S2, reg. Respiratory: bl rhonchi less Abdomen: soft, nt, multiple scars Extremities: warm Access: piv LABS: Reviewed. IMAGING: Reviewed. MEDICATIONS: Reviewed. ASSESSMENT: 62 M Acute hypoxic resp failure toxic encephalopathy, Coma on admission - improving Overdose with narcs and benzos Metastatic CA Aspiration pneumonitits PLAN: Neurologic: encephalopathy status improving. more time. allow him to regain capacity. Cardiovascular: HS. IVF less. Respiratory: aspiration but maintaining. not needing ppv. nebs prn Gastrointestinal: npo till until better wakefullness. sup Renal/Metabolic: labs and lytes equilibrating. Infectious Disease: no infective burden. Hematology: counts ok. Endocrine: stable. Musculoskeletal: oob later. f/u pain needs. Psych/Social: and family updated. allow pt to regain capacity and then help sort his dispo needs towards hospice. Supportive and preventative care as ordered. VTE prophylaxis: heparin Hernandez catheter for now. Disposition: ICU Code Status: DNR/DNI Critical Care Time: 25min Jacqueline Willingham DO
[2017-11-26] MEDS ORDERED: Acetaminophen SUPP* 650 MG SUPP PR PRN (22:21)
[2017-11-27] MEDS: Heparin VIAL(*) 5000 UNITS/ML VIAL (FIVE THOUSAND) SUBCUT SCH ×3 (06:06→20:34)
[2017-11-27 06:37] LABS: ABS Basophils 0 10^3/ul (0-0.2); ABS Eosinophils 0.1 10^3/ul (0-0.6); ABS Lymphocytes 1.4 10^3/ul (1.0-4.8); ABS Monocytes 1.2 10^3/ul (0-0.8); ABS Neutrophils 13.9 10^3/ul (1.5-7.7); ABS Nucleated RBC 0 10^3/ul; Eosinophil % 0.4 % (0-6); Hematocrit 36 % (42-52); Hemoglobin 11.9 g/dl (14.0-18.0); Lymphocyte % 8.4 % (25-47); Mean Corpuscular HGB Conc 33 g/dl (31-36); Mean Corpuscular Hemoglobin 30 pg (27-31); Mean Corpuscular Volume 91 fL (80-94); Mean Platelet Volume 7.6 um3 (7.4-10.4); Nucleated Red Blood Cells % 0; Platelet Count 185 10^3/ul (150-450); Red Blood Count 3.98 10^6/ul (4.0-5.4); Red Cell Distribution Width 15 % (10.5-15); White Blood Count 16.6 10^3/ul (3.5-10.8)
[2017-11-27 06:53] LABS: EGFR Non-African American 84.1 (>60)
[2017-11-27] MEDS ORDERED: Magnesium Sulfate 2 GM IV* 2 GM/50 ML BAG IVPB ONE (07:43)
--- NOTE | 2017-11-27 10:55 | PN ---
Progress Note - Progress Note Date of Service: 11/27/17 Note: CRITICAL CARE MEDICINE DATE: 11/27/17 TIME: 930 SUBJECTIVE: Patient seen and examined. family at bedside. PHYSICAL EXAM: Vital Signs: Reviewed. weaning off O2. Neurologic: communicating but still wanting eyes closed HEENT: anciteric, mmm Cardiovascular: S1 S2, reg Respiratory: bl rhonchi less again Abdomen: soft, nt, multiple scars Extremities: warm Access: piv LABS: Reviewed. IMAGING: Reviewed. MEDICATIONS: Reviewed. ASSESSMENT: 62 M Acute hypoxic resp failure toxic encephalopathy, Coma on admission - improving Overdose with narcs and benzos Metastatic CA Aspiration pneumonitits PLAN: Improving but mildly groggy. ready to eat however. Discussed his pain meds and benzos and he tries to explain how he was just wanting the pain to go away. We discussed benefits of hospice and sortgin out his oupt plans. Can re-discuss his options with oncology but as he already seems informed and family supporting his decisions will look to set up for outpt hospice type services. Aspiration improving but needs pulurbano hoyos. Has asym uti and can tx for 5 days with amoxicillin. has had multiple utis. Family appreciative Supportive and preventative care as ordered. VTE prophylaxis: heparin Disposition: ICU Code Status: DNR/DNI Critical Care Time: 25min Jacqueline Willingham DO
[2017-11-27] MEDS: Amoxicillin PO (*) 875 MG TAB PO SCH ×2 (11:06→20:34)
[2017-11-27] MEDS: Potassium & Sodium Phos 250MG* = 1 PACKET PO SCH ×2 (14:02→20:34)
--- NOTE | 2017-11-27 18:20 | PN ---
Progress Note - Progress Note Date of Service: 11/27/17 SOAP: Subjective: []Admitted 11/25 after being found on floor with empty bottle of Lorazepam. notes she has no idea how many oxycodone he would have taken. Presumed intentional overdose due to pt.'s actions and words surrounding incident. Moved to medical floor from ICU this afternoon and per family doing much better than yesterday. Able to answer simple questions though unaware of situation. Discussed with current situation and plan of care. Medications: Acetaminophen (Tylenol Supp*) 650 mg IA Q4H PRN PRN Reason: FEVER/PAIN Last Admin: 11/26/17 23:31 Dose: 650 mg Albuterol (Ventolin 2.5 Mg/3 Ml Neb.Maria Victoria*) 2.5 mg INH Q4H PRN PRN Reason: SOB/WHEEZING Amoxicillin (Amoxicillin Po (*)) 875 mg PO BID [facility] Stop: 12/01/17 21:01 Last Admin: 11/27/17 11:06 Dose: 875 mg Haloperidol Lactate (Haldol Inj Iv/Im*) 2 mg IV SLOW PU Q4H PRN PRN Reason: AGITATION Last Admin: 11/27/17 00:39 Dose: 2 mg Heparin Sodium (Porcine) (Heparin Vial(*)) 5,000 units SUBCUT Q8HR [facility] Last Admin: 11/27/17 14:01 Dose: 5,000 units Omeprazole (Prilosec Cap*) 20 mg PO 0730 [facility] Potassium Phos/Sodium Phos (Neutra Phos 250 Mg Isaak*) 250 mg PO TID [facility] Stop: 11/28/17 21:01 Last Admin: 11/27/17 14:02 Dose: 250 mg Sertraline HCl (Zoloft*) 75 mg PO DAILY [facility] Objective: [] Vital Signs Temp Pulse Resp BP Pulse Ox 100.9 F 92 19 124/63 94 11/27/17 13:06 11/27/17 16:01 11/27/17 16:01 11/27/17 16:01 11/27/17 16:01 Alert and oriented to self and location, unable to state situation that brought him here Opens eyes to voice, quickly falls asleep during discussion HRR, S1S2 LS clear bilat. Urine output clear yellow No abd. discomfort with palpation Laboratory Results - last 24 hr 11/27/17 11/27/17 06:29 06:29 WBC 16.6 H RBC 3.98 L Hgb 11.9 L Hct 36 L MCV 91 MCH 30 MCHC 33 RDW 15 Plt Count 185 MPV 7.6 Neut % (Auto) 83.6 H Lymph % (Auto) 8.4 L [place] % (Auto) 7.3 H Eos % (Auto) 0.4 Baso % (Auto) 0.3 Absolute Neuts (auto) 13.9 H Absolute Lymphs (auto) 1.4 Absolute Monos (auto) 1.2 H Absolute Eos (auto) 0.1 Absolute Basos (auto) 0 Absolute Nucleated RBC 0 Nucleated RBC % 0 Sodium 137 L Potassium 4.2 Chloride 110 Carbon Dioxide 23 Anion Gap 4 BUN 19 Creatinine 0.91 Est GFR ( Amer) 108.2 Est GFR (Non-Af Amer) 84.1 BUN/Creatinine Ratio 20.9 H Glucose 81 Calcium 8.5 L Phosphorus 1.7 L Magnesium 1.7 L Assessment: []62 yo male with metastatic bladder cancer s/p resection with subsequent nephrostomy tube and now on Pembroluzimab with CR by PET /p C3 and now s/p C4 ( given 11/15) with intentional overdose. He has long struggled with depression surrounding diagnosis and specifically post surgical ED and nephrostomy tube and while per report he could not handle the "pain" anymore he has considered his pain fairly well controlled in the office; suicidal attempt felt secondary to pt.'s consideration of current QOL as very poor. Long discussion with regarding CR on current tx., difficulty in determining further prognosis or course should he pursue comfort measures only. Once pt. is more alert and involved in care he will require a psychiatric evaluation as well as a waldo discussion of options for plan moving forward. Plan: []Transfer to floor as per gis manager
[2017-11-28] MEDS: Heparin VIAL(*) 5000 UNITS/ML VIAL (FIVE THOUSAND) SUBCUT SCH ×3 (05:40→20:30)
[2017-11-28 06:46] LABS: ABS Basophils 0 10^3/ul (0-0.2); ABS Eosinophils 0 10^3/ul (0-0.6); ABS Lymphocytes 2.1 10^3/ul (1.0-4.8); ABS Monocytes 1.1 10^3/ul (0-0.8); ABS Neutrophils 10.7 10^3/ul (1.5-7.7); ABS Nucleated RBC 0 10^3/ul; Eosinophil % 0.3 % (0-6); Hematocrit 32 % (42-52); Lymphocyte % 15.3 % (25-47); Mean Corpuscular HGB Conc 35 g/dl (31-36); Mean Corpuscular Hemoglobin 31 pg (27-31); Mean Corpuscular Volume 89 fL (80-94); Mean Platelet Volume 8.2 um3 (7.4-10.4); Nucleated Red Blood Cells % 0; Platelet Count 179 10^3/ul (150-450); Red Blood Count 3.58 10^6/ul (4.0-5.4); Red Cell Distribution Width 15 % (10.5-15); White Blood Count 13.9 10^3/ul (3.5-10.8)
[2017-11-28 07:04] LABS: EGFR Non-African American 79.1 (>60)
[2017-11-28] MEDS: Potassium & Sodium Phos 250MG* = 1 PACKET PO SCH ×3 (07:25→20:30)
[2017-11-28] MEDS: Amoxicillin PO (*) 875 MG TAB PO SCH ×2 (07:25→20:32)
[2017-11-28] MEDS: Sertraline* 25 MG TAB PO SCH (07:25)
[2017-11-28] MEDS: Omeprazole CAP* 20 MG PO SCH (07:25)
[2017-11-28] MEDS ORDERED: Acetaminophen TAB* 325 MG PO PRN (10:18)
[2017-11-28] MEDS ORDERED: Mouth Piece, Nicotine* 1 EACH CARTRIDGE INH PRN ×2 (10:18)
--- NOTE | 2017-11-28 10:37 | PN ---
Progress Note - Progress Note Date of Service: 11/28/17 SOAP: Subjective: []Awake, upright, and communicating clearly this AM. Feels fine and wants to go home. Denies intentional overdose stating, "Why would I do a thing like that" and then lists the things he needs to do at home. Wants a cigarette and isn't interested in nicotine replacement. Denies recollection of 6-8 hrs preceding being found by family. Family maintains that he sent 'good-bye' messages. Admits to struggling with QOL related to nephrostomy tube, ED, and frustrating with metastatic disease. Says that while we have treated his disease we haven' t ever treated his "mind." Feels he tolerates treatment fine with exception of mild leg cramps. Appreciative of review of current facts known related to current situation and state of cancer. Medications: Acetaminophen (Tylenol Tab*) 650 mg PO Q6H PRN PRN Reason: PAIN Albuterol (Ventolin 2.5 Mg/3 Ml Neb.Marai Victoria*) 2.5 mg INH Q4H PRN PRN Reason: SOB/WHEEZING Amoxicillin (Amoxicillin Po (*)) 875 mg PO BID [facility] Stop: 12/01/17 21:01 Last Admin: 11/28/17 07:25 Dose: 875 mg Device (Nicotine Mouth Piece*) 1 each INH .USE WITH NICOTROL PRN PRN Reason: CRAVING Device (Nicotine Mouth Piece*) 1 each INH .USE WITH NICOTROL PRN PRN Reason: CRAVING Haloperidol Lactate (Haldol Inj Iv/Im*) 2 mg IV SLOW PU Q4H PRN PRN Reason: AGITATION Last Admin: 11/27/17 00:39 Dose: 2 mg Heparin Sodium (Porcine) (Heparin Vial(*)) 5,000 units SUBCUT Q8HR [facility] Last Admin: 11/28/17 05:40 Dose: 5,000 units Heparin Sodium (Porcine) (Heparin Flush Port (Ivad)) 5 ml FLUSH DAILY [facility] PRN Reason: Protocol Last Admin: 11/28/17 07:26 Dose: 5 ml Nicotine (Nicotine Inhaler*) 10 mg INH Q2H PRN PRN Reason: CRAVING Omeprazole (Prilosec Cap*) 20 mg PO 0730 [facility] Last Admin: 11/28/17 07:25 Dose: 20 mg Potassium Phos/Sodium Phos (Neutra Phos 250 Mg Isaak*) 250 mg PO TID [facility] Stop: 11/28/17 21:01 Last Admin: 11/28/17 07:25 Dose: 250 mg Sertraline HCl (Zoloft*) 75 mg PO DAILY [facility] Last Admin: 11/28/17 07:25 Dose: 75 mg Objective: [] Vital Signs Temp Pulse Resp BP Pulse Ox 98.0 F 80 18 118/71 99 11/28/17 07:20 11/28/17 07:20 11/28/17 07:39 11/28/17 07:20 11/28/17 07:20 A&Ox3, EOMI, PERRLA, JAMIL, neuro grossly non-focal Resp. even and non-labored without audible wheeze or rhonchi Nephrostomy tube draining clear, yellow urine. Laboratory Results - last 24 hr 11/28/17 11/28/17 05:45 05:45 WBC 13.9 H RBC 3.58 L Hgb 11.0 L Hct 32 L MCV 89 MCH 31 MCHC 35 RDW 15 Plt Count 179 MPV 8.2 Neut % (Auto) 76.5 Lymph % (Auto) 15.3 L [place] % (Auto) 7.7 H Eos % (Auto) 0.3 Baso % (Auto) 0.2 Absolute Neuts (auto) 10.7 H Absolute Lymphs (auto) 2.1 Absolute Monos (auto) 1.1 H Absolute Eos (auto) 0 Absolute Basos (auto) 0 Absolute Nucleated RBC 0 Nucleated RBC % 0 Sodium 137 L Potassium 3.7 Chloride 106 Carbon Dioxide 25 Anion Gap 6 BUN 17 Creatinine 0.96 Est GFR ( Amer) 101.7 Est GFR (Non-Af Amer) 79.1 BUN/Creatinine Ratio 17.7 Glucose 94 Calcium 8.6 Assessment: []62 yo male with metastatic bladder cancer with complete response by PET /p C3 Pembroluzimab now s/p C4 presenting with respiratory distress following intentional over dose. Pt. now recovering from acute event with stable labs and intact neurological status, denying intentional action despite surrounding events indicating his intention, and threatening to leave AMA. Discussed safety concerns at length and legal responsibility to make sure he has no intention of further hurting himself. Reviewed plan of care with monitoring as inpatient for another 24 hours to confirm no reflex renal dysfunction and need for psychiatric evaluation prior to discharge. We discussed the current stability of his disease and several options moving forward, ultimately he needs evaluation for competency to determine his desire to continue therapy, pursue hospice, and/or delay tx. to pursue more aggressive management of certain QOL issues (ie: ED and depression). Plan: []Consult Psychiatry SHANTAL Recheck labs in AM OK to ambulate around unit, but not off floor - pt. and family aware FU tomorrow AM with Dr. Herrera, primary oncologist, to determine subsequent plan of care. >40 min spent with >50% face to face counseling
[2017-11-28] MEDS: Nicotine Inhaler* 10 MG AMP INH PRN ×2 (10:51→14:16)
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
[2017-11-28] MEDS ORDERED: LORazepam TAB(*) 1 MG PO PRN (22:31)
[2017-11-29] MEDS: Heparin VIAL(*) 5000 UNITS/ML VIAL (FIVE THOUSAND) SUBCUT SCH (04:55)
[2017-11-29 05:41] LABS: Hematocrit 35 % (42-52); Hemoglobin 12.4 g/dl (14.0-18.0); Mean Corpuscular HGB Conc 35 g/dl (31-36); Mean Corpuscular Hemoglobin 32 pg (27-31); Mean Corpuscular Volume 90 fL (80-94); Mean Platelet Volume 8.1 um3 (7.4-10.4); Platelet Count 211 10^3/ul (150-450); Red Blood Count 3.92 10^6/ul (4.0-5.4); Red Cell Distribution Width 15 % (10.5-15)
[2017-11-29 05:55] LABS: EGFR Non-African American 85.2 (>60)
[2017-11-29] MEDS: Omeprazole CAP* 20 MG PO SCH (07:27)
[2017-11-29] MEDS: Sertraline* 25 MG TAB PO SCH (08:52)
[2017-11-29] MEDS: Amoxicillin PO (*) 875 MG TAB PO SCH (08:52)
--- NOTE | 2017-11-29 11:45 | PN ---
Subjective - Subjective Subjective: Psychiatric consultation follow up progress note met with patient and his along with Autumn Ramirez RN who has known family many years and is also patient care assistant through PCP's office for Leobardo. severe stressor has been Leobardo's dysfunctional relationship with his son Davian who he has had no contact with for past year as Davian was in senior living. Leobardo has been fearful and anxious of son's release from senior living which occurred Teusday. He has had no contact with son since incarceration one year ago. Son has visited father daily since being released. Leobardo admits that he there is unhealthy enmeshment and that he has great difficulty saying no to his son. son is living in [place]. He fears son will relapse. both Leobardo and his need therapist who will help them establilsh boundaries with son. MSE: Leobardo is not acutely suicidal He remains dysphoric and preoccupied with son and his quality of life issues (frequent uti's, ED, stoma leakage) He wishes discharge and looks forward to being with his grand daughters and . He agrees to see a therpist in the community and would prefer male therapist. also feels this is imperative and will make sure he goes. Impression: adjustment disorder with depressed mood Parent Child conflict Metastatic bladder Ca Plan: I have spoken with physicians licensed nursing assistant on Oncology team and related that patient will need social work consultation today in order to solidify outpatinet appointment with therapist who can see patient (and ) in the next week. Family is in crisis with regard to how to navigate relationship with son Davian and psychotherpeutic intervention is indicated. Leobardo would benefit from also having mental status followup assessment with OPERATIONAL RISK ANALYST or psychiatrist who can monitor mood and consider pharmacologic intervention as needed. Plan - Plan Treatment Plan: Name: LEOBARDO PAREDES Birthdate: 1955 [id number] Medications: Current Medications Acetaminophen (Tylenol Tab*) 650 mg PO Q6H PRN PRN Reason: PAIN Last Admin: 11/29/17 04:54 Dose: 650 mg Albuterol (Ventolin 2.5 Mg/3 Ml Neb.Maria Victoria*) 2.5 mg INH Q4H PRN PRN Reason: SOB/WHEEZING Amoxicillin (Amoxicillin Po (*)) 875 mg PO BID DAVONTE Stop: 12/01/17 21:01 Last Admin: 11/29/17 08:52 Dose: 875 mg Device (Nicotine Mouth Piece*) 1 each INH .USE WITH NICOTROL PRN PRN Reason: CRAVING Last Admin: 11/28/17 10:52 Dose: 1 each Device (Nicotine Mouth Piece*) 1 each INH .USE WITH NICOTROL PRN PRN Reason: CRAVING Haloperidol Lactate (Haldol Inj Iv/Im*) 2 mg IV SLOW PU Q4H PRN PRN Reason: AGITATION Last Admin: 11/27/17 00:39 Dose: 2 mg Heparin Sodium (Porcine) (Heparin Vial(*)) 5,000 units SUBCUT Q8HR [facility] Last Admin: 11/29/17 04:55 Dose: 5,000 units Heparin Sodium (Porcine) (Heparin Flush Port (Ivad)) 5 ml FLUSH DAILY [facility] PRN Reason: Protocol Last Admin: 11/29/17 08:50 Dose: Not Given Lorazepam (Ativan Tab(*)) 1 mg PO BEDTIME PRN PRN Reason: INSOMNIA Last Admin: 11/28/17 22:38 Dose: 1 mg Nicotine (Nicotine Inhaler*) 10 mg INH Q2H PRN PRN Reason: CRAVING Last Admin: 11/28/17 14:16 Dose: 10 mg Omeprazole (Prilosec Cap*) 20 mg PO 0730 [facility] Last Admin: 11/29/17 07:27 Dose: 20 mg Sertraline HCl (Zoloft*) 75 mg PO DAILY [facility] Last Admin: 11/29/17 08:52 Dose: 75 mg
--- NOTE | 2017-11-29 12:06 | PN ---
Progress Note - Progress Note Date of Service: 11/29/17 SOAP: Subjective: []Better today and ready to go home. Discussed difficulty he has had. He is mostly focused on sexual function, also has back pain, dealt with UTIs. Has seen Dr. Leonard today who feels he can go home and is at low suicide risk as long as has discharge planned with therapist. Pain is controlled at this time. Acetaminophen (Tylenol Tab*) 650 mg PO Q6H PRN PRN Reason: PAIN Last Admin: 11/29/17 04:54 Dose: 650 mg Albuterol (Ventolin 2.5 Mg/3 Ml Neb.Maria Victoria*) 2.5 mg INH Q4H PRN PRN Reason: SOB/WHEEZING Amoxicillin (Amoxicillin Po (*)) 875 mg PO BID [facility] Stop: 12/01/17 21:01 Last Admin: 11/29/17 08:52 Dose: 875 mg Device (Nicotine Mouth Piece*) 1 each INH .USE WITH NICOTROL PRN PRN Reason: CRAVING Last Admin: 11/28/17 10:52 Dose: 1 each Device (Nicotine Mouth Piece*) 1 each INH .USE WITH NICOTROL PRN PRN Reason: CRAVING Haloperidol Lactate (Haldol Inj Iv/Im*) 2 mg IV SLOW PU Q4H PRN PRN Reason: AGITATION Last Admin: 11/27/17 00:39 Dose: 2 mg Heparin Sodium (Porcine) (Heparin Vial(*)) 5,000 units SUBCUT Q8HR [facility] Last Admin: 11/29/17 04:55 Dose: 5,000 units Heparin Sodium (Porcine) (Heparin Flush Port (Ivad)) 5 ml FLUSH DAILY [facility] PRN Reason: Protocol Last Admin: 11/29/17 08:50 Dose: Not Given Lorazepam (Ativan Tab(*)) 1 mg PO BEDTIME PRN PRN Reason: INSOMNIA Last Admin: 11/28/17 22:38 Dose: 1 mg Nicotine (Nicotine Inhaler*) 10 mg INH Q2H PRN PRN Reason: CRAVING Last Admin: 11/28/17 14:16 Dose: 10 mg Omeprazole (Prilosec Cap*) 20 mg PO 0730 [facility] Last Admin: 11/29/17 07:27 Dose: 20 mg Sertraline HCl (Zoloft*) 75 mg PO DAILY DAVONTE Last Admin: 11/29/17 08:52 Dose: 75 mg Objective: [] Vital Signs Temp Pulse Resp BP Pulse Ox 97.6 F 80 20 108/63 96 11/29/17 07:26 11/29/17 07:26 11/29/17 08:00 11/29/17 07:26 11/29/17 07:26 A&Ox3, EOMI, PERRLA, JAMIL, Resp. CTA Nephrostomy tube draining clear, yellow urine. Neuro grossly non-focal, close to baseline. Assessment: []62 yo male with metastatic bladder cancer with complete response by PET /p C3 Pembroluzimab now s/p C4 presenting with following intentional over dose. Improved today and had extensive discussion about how to move forward. Discussed his ED, depression, finding meaning in life and when it is worth while and not appropriate to treat cancer. Plan: []1. Will discharge today with follow up with therapist and he agrees to continue Zoloft. 2. Continue Pembrolizumab 3. Follow up urology for ED 4. RTC to clinc next week with or Antionette. >35 min spent with patient and chart
[2017-11-29 13:02] VITALS: BP 118/69
--- NOTE | 2017-11-30 07:23 | DS ---
DISCHARGE SUMMARY: DATE OF ADMISSION: 11/26/17 DATE OF DISCHARGE: 11/29/17 DISCHARGE DIAGNOSES: 1. Suicide attempt with lorazepam and oxycodone. 2. Depression. 3. Metastatic bladder cancer. 4. Recurrent urinary tract infection. 5. Erectile dysfunction. HOSPITAL COURSE: He came in after overdose. He took around 90 mg lorazepam and then texted his fami ly aaliyahe. They rushed home and found him unconscious and brought him to the emergency room. He hardy d a pulse when found by the family. He had forced ventilation by the teller supervisor and in the ER. He then wa s maintained in the ICU on a positive pressure, but not intubated for 2 days before. His mental stat us improved. Yesterday was the third day. He was conversive and nearing his baseline state, today h e is close to baseline. Motivation for suicide attempt was erectile dysfunction primarily, but also recurrent UTIs, ostomy bag, and back pain. He has metastatic cancer, but currently on immunotherapy with pembrolizumab with a complete response to minimal side effects. He has been seen by Dr. Leonard in Psychiatry yesterday and today. By psychiatry assessment, he has forward looking plans, no suicidal ideation, and feels he is calm an d safe for discharge. We had extensive discussion today about causes of his suicide attempt as well as whether or not it is appropriate to continue treating his cancer. He is motivated to treat the ca ncer at this time. He wants to work on erectile dysfunction, but also feels that he can find other me aning in life. He contracts for safety on discharge. We will plan on sending him home, continuing on pembrolizumab, and following up within a week. He wi ll have an appointment with the therapist on discharge. He is going to continue on Zoloft. DISCHARGE MEDICATIONS: 1. Amoxicillin 875 p.o. b.i.d. for 5 days. 2. B12 injection at home monthly. 3. Medical marijuana per home administration. 4. Omeprazole 20 mg a day. 5. Oxycodone 5 to 10 mg q.4 p.r.n. 6. Pembrolizumab. 7. Sertraline 75 mg p.o. daily. He had been on lorazepam prior to admission. We will discontinue on discharge. DISCHARGE PLAN: Followup will be with me or Jordyn Chadwick within 7 days. [id number]/[facility] #: [id number]
== END 2017-11-29 12:45 | disposition home or self-care (01) | DRG 812 ==
LOC: ED 13:32 → ICU 13:50 → MED 11-27 17:11
PROVIDERS: ADMIT Internal Medicine Critical Care Medicine; ATTEND Internal Medicine Hematology & Oncology
PROC: 5A09457 Assistance with Respiratory Ventilation, 24-96 Consecutive Hours, Continuous Positive Airway Pressure (ICD-10-PCS; principal; 2017-11-25)
DX: T42.4X2A Poisoning by benzodiazepines, intentional self-harm, initial encounter (principal); J96.01 Acute respiratory failure with hypoxia; J96.02 Acute respiratory failure with hypercapnia; R40.2112 Coma scale, eyes open, never, at arrival to emergency department; R40.2312 Coma scale, best motor response, none, at arrival to emergency department; R40.2212 Coma scale, best verbal response, none, at arrival to emergency department; G92 Toxic encephalopathy; J69.0 Pneumonitis due to inhalation of food and vomit; K91.2 Postsurgical malabsorption, not elsewhere classified; T40.2X2A Poisoning by other opioids, intentional self-harm, initial encounter; Y92.009 Unspecified place in unspecified non-institutional (private) residence as the place of occurrence of the external cause; X58.XXXA Exposure to other specified factors, initial encounter; C67.9 Malignant neoplasm of bladder, unspecified; N52.9 Male erectile dysfunction, unspecified; Z87.440 Personal history of urinary (tract) infections; Z83.3 Family history of diabetes mellitus; F17.210 Nicotine dependence, cigarettes, uncomplicated; M54.9 Dorsalgia, unspecified; Z66 Do not resuscitate; F32.9 Major depressive disorder, single episode, unspecified; F43.20 Adjustment disorder, unspecified; Z93.6 Other artificial openings of urinary tract status; J44.9 Chronic obstructive pulmonary disease, unspecified
CPT/HCPCS: 36415; 71045; 80048; 80053; 80307; 80320; 80329; 81003; 81015; 82140; 82550; 82553; 82803; 83605; 83690; 83735; 83880; 84100; 84443; 84484; 85025; 85027; 85610; 85730; 86140; 87077; 87086; 87186; 87641; 93005; 94660; 99232; 99233; 99239; 99285; A9270-GY; G0480; J1630; J1642; J1644; J2310; J3475; J3480

== ENCOUNTER 2018-04-18 09:47 | Inpatient (IN) | payer BC, MEDICARE ==
[2018-04-18] MEDS ORDERED: Ondansetron INJ* 2 MG/ML VIAL IV PRN (09:56)
[2018-04-18] MEDS ORDERED: Acetaminophen TAB* 325 MG PO PRN (09:56)
[2018-04-18] MEDS ORDERED: Piperacillin/Tazobac ADVAN(*) 3.375 GM in NS 0.9% 100 ML* 100 ML IVPB ONE (10:04)
[2018-04-18] MEDS ORDERED: oxyCODONE TAB* 5 MG TAB PO PRN (10:07)
--- OUTSIDE RECORDS SUMMARY | 2018-04-18 10:45 | XMS REPORT ---
:1955 External Reference #:[id number] Author Organization [facility] Address [address] [place] [address] [place] [address] Phone [phone] Care Team Providers Name Role Phone Lawrence Angeles MD Care Team Information Organ Installer Unavailable Melissa Hansen MD Primary Care Physician Unavailable Payers Type Date Identification Numbers Payment Provider Subscriber Commercial Policy Number: [id number] [facility] Idalia Pruett Group Number: [id number] [address] PayID: [id number] [place] [address] Medigap Part B Effective: 1997 Policy Number: [id number] Medicare Bridger Pruett PayID: [id number] [address] [place] [address] Problems Date Description Provider Status Onset: 01/04/2017 Crushing injury of finger Quan Cottrell MD Active Family History Date Family Member(s) Problem(s) Comments General No Current Problems Social History Type Date Description Comments Lives With Occupation [employer] Use Denies alcohol use Smoking Patient is a current smoker, smokes every day Exercise Type/Frequency Exercises regularly Allergies, Adverse Reactions, Alerts Date Description Reaction Status Severity Comments 03/12/2014 NKDA active Medications Medication Date Status Form Strength Qnty SIG Indications Ordering Provider Tramadol Active Tablets 37.5-325mg 30tabs 1-2 tab Quan Hydrochloride 017 by mouth MD Ronit /Acetaminophe every 4-6 n hours as needed Antibiotic Active Quan 017 MD Ronit Celebrex 0 Active Capsules 200mg 90caps 1 by Unknown 000 mouth every day Aleve 0 Active Capsules 220mg 60caps 1 by Unknown 000 mouth twice a day as needed Vital Signs Date Vital Result Comment 01/04/2017 Height 71.5 inches 5'11.50" Weight 171.00 lb Heart Rate 86 /min BP Systolic Sitting 112 mmHg BP Diastolic Sitting 72 mmHg Respiratory Rate 14 /min Pain Level 0 BMI (Body Mass Index) 23.5 kg/m2 03/12/2014 Weight 171.00 lb Heart Rate 72 /min BP Systolic Sitting 126 mmHg BP Diastolic Sitting 74 mmHg Pain Level 3 lower back Results Test Date Test Result H/L Range Note Inr/Protime 09/12/2016 Inr 0.94 0.89-1.11 Laboratory test 09/12/2016 Partial Thrombo Time 30.5 seconds 26.0-36.3 finding PTT Platelet Count 09/12/2016 Platelet Count 217 10^3/uL 150-450 Mean Platelet Volume 8 um3 7.4-10.4 CBC No Diff 06/22/2014 White Blood Count 9.7 10^3/uL 4.8-10.8 Red Blood Count 3.95 10^6/uL Low 4.0-5.4 Hemoglobin 12.4 g/dL Low 14.0-18.0 Hematocrit 37 % Low 42-52 Mean Corpuscular Volume 93 fL 80-94 Mean Corpuscular Hemoglobin 31 pg 27-31 Mean Corpuscular HGB Conc 34 g/dL 31-36 Red Cell Distribution Width 14 % 10.5-15 Platelet Count 486 10^3/uL High 150-450 Mean Platelet Volume 8 um3 7.4-10.4 Comp Metabolic Panel 06/22/2014 Sodium 138 mmol/L 133-145 Potassium 4.2 mmol/L 3.5-5.0 1 Chloride 103 mmol/L 101-111 Co2 Carbon Dioxide 30 mmol/L 22-32 Anion Gap 5 mmol/L 2-11 Glucose 92 mg/dL 70-100 Blood Urea Nitrogen 17 mg/dL 6-24 Creatinine 0.95 mg/dL 0.67-1.17 BUN/Creatinine Ratio 17.9 8-20 Calcium 9.2 mg/dL 8.6-10.3 Total Protein 7.3 g/dL 6.4-8.9 Albumin 3.8 g/dL 3.2-5.2 Globulin 3.5 g/dL 2-4 Albumin/Globulin Ratio 1.1 1-3 Total Bilirubin 0.80 mg/dL 0.2-1.0 Alkaline Phosphatase 182 U/L High 34-104 Alt 14 U/L 7-52 Ast 15 U/L 13-39 Egfr Non- 80.9 >60 Egfr 104.0 >60 2 Laboratory test finding 06/22/2014 C Reactive Protein 15.16 mg/L High < 5.00 3 CBC No Diff 06/14/2014 White Blood Count 11.5 10^3/uL High 4.8-10.8 Red Blood Count 3.69 10^6/uL Low 4.0-5.4 Hemoglobin 11.3 g/dL Low 14.0-18.0 Hematocrit 34 % Low 42-52 Mean Corpuscular Volume 93 fL 80-94 Mean Corpuscular Hemoglobin 31 pg 27-31 Mean Corpuscular HGB Conc 33 g/dL 31-36 Red Cell Distribution Width 14 % 10.5-15 Platelet Count 541 10^3/uL High 150-450 Mean Platelet Volume 8 um3 7.4-10.4 Comp Metabolic Panel 06/14/2014 Sodium 138 mmol/L 133-145 Potassium 4.1 mmol/L 3.5-5.0 4 Chloride 105 mmol/L 101-111 Co2 Carbon Dioxide 29 mmol/L 22-32 Anion Gap 4 mmol/L 2-11 Glucose 94 mg/dL 70-100 Blood Urea Nitrogen 8 mg/dL 6-24 Creatinine 0.80 mg/dL 0.67-1.17 BUN/Creatinine Ratio 10.0 8-20 Calcium 8.8 mg/dL 8.6-10.3 Total Protein 6.3 g/dL Low 6.4-8.9 Albumin 3.2 g/dL 3.2-5.2 Globulin 3.1 g/dL 2-4 Albumin/Globulin Ratio 1.0 1-3 Total Bilirubin 1.10 mg/dL High 0.2-1.0 Alkaline Phosphatase 328 U/L High 34-104 Alt 36 U/L 7-52 Ast 25 U/L 13-39 Egfr Non- 98.6 >60 Egfr 126.8 >60 5 1 Potassium reference range changed effective 05/23/14 2 Because ethnic data is not always readily available, this report includes an eGFR for both -Americans and non- Americans. The National Kidney Disease Education Program (NKDEP) does not endorse the use of the MDRD equation for patients that are not between the ages of 18 and 70, are , have extremes of body size, muscle mass, or nutritional status, or are non- or non-. According to the National Kidney Foundation, irrespective of diagnosis, the stage of the disease is based on the level of kidney function: Stage Description GFR(mL/min/1.73 m(2)) 1 Kidney damage with normal or decreased GFR 90 2 Kidney damage with mild decrease in GFR 60-89 3 Moderate decrease in GFR 30-59 4 Severe decrease in GFR 15-29 5 Kidney failure <15 (or dialysis) 3 Acute inflammation: >10.00 4 Potassium reference range changed effective 05/23/14 5 Because ethnic data is not always readily available, this report includes an eGFR for both -Americans and non- Americans. The National Kidney Disease Education Program (NKDEP) does not endorse the use of the MDRD equation for patients that are not between the ages of 18 and 70, are , have extremes of body size, muscle mass, or nutritional status, or are non- or non-. According to the National Kidney Foundation, irrespective of diagnosis, the stage of the disease is based on the level of kidney function: Stage Description GFR(mL/min/1.73 m(2)) 1 Kidney damage with normal or decreased GFR 90 2 Kidney damage with mild decrease in GFR 60-89 3 Moderate decrease in GFR 30-59 4 Severe decrease in GFR 15-29 5 Kidney failure <15 (or dialysis) Procedures Date CPT Code Description Status 09/12/2016 35922 Moderate Sedation Services; Same Phys Each Additional Completed 15 Mins 09/12/2016 20951 Moderate Sedation Services; Same Phys Intl 15 Mins; PT Completed >=5 Years 09/12/2016 83334 Fluoroscopic Guidance For Cent Completed 09/12/2016 36943 Ultrasound Guidance For Vascular Access Completed 09/12/2016 43062 Insertion Tunneled Cent Venous Cathr W Subcut Port 5 Completed Yrs Or Oldr 06/01/2014 14288 Laparotomy Exploratory Completed 06/01/2014 31246 Enterectomy Resect Small Intestine W/Anastomosis Completed (Single Resect) 06/01/2014 70271 Enterolysis Completed 05/27/2014 22137 EKG, Interpretation Only Completed 10/17/2007 55326 EKG, Interpretation Only Completed Encounters Type Date Location Provider CPT E/M Dx Office Visit 11/27/2017 11:16a [facility] Kamron Willingham D.O. 72240 J96.02 T50.901A C79.9 F32.89 Office Visit 11/26/2017 11:15a [facility] Kamron Willingham D.O. 95129 J96.02 T50.901A C79.9 F32.89 Office Visit 11/25/2017 11:12a [facility] Kamron Willingham D.O. 10884 J96.02 T50.901A C79.9 F32.89 Office Visit 06/23/2017 9:35a [facility] Vicente Hernández, 99347 N39.0 Hospitalists Mary C67.9 A41.9 Office Visit 06/22/2017 9:33a [facility] Tiffany Dubon, 85632 N39.0 Assoc,pc [employer] Hospitalists C67.9 A41.9 Office Visit 01/04/2017 2:30p [facility]an Cottrell, 51925 S62.632A Krista BETANCORUT Office Visit 06/07/2014 3:20p [facility] Elvie May, 19743 789.00 Assoc,pc Hospitalists [place] 277.4 V45.89 V15.29 Office Visit 03/12/2014 10:20a [facility] Portillo Jordan, 86588 721.3 Of Con[facility] Hernandez Office Visit 08/27/2012 11:00a [facility] Armani Davis, 30958 356.9 Services Of [facility] Hernandez 333.1 Plan of Care Future Appointment(s):04/02/2018 1:00 pm - Alonzo Perez M.D. at [facility]01/04/2017 - Quan Cottrell, MDS62.632A Disp fx of distal phalanx of right middle finger, init
[2018-04-18] MEDS ORDERED: Zosyn per Pharmacy* NOTE FOLLOW UP SCH (11:00)
[2018-04-18] MEDS: NS 0.9% 1000 ML* 1,000 ML IV SCH (13:16)
[2018-04-18] MEDS: Enoxaparin(*) 40 MG/0.4 ML SYR SUBCUT SCH (13:28)
[2018-04-18] MEDS: Nystatin SUSPENSION* 100000 UNITS/ML 5 ML UDC PO SCH ×3 (13:29→21:06)
[2018-04-18] MEDS ORDERED: Iodixanol* (CONTRAST) 320 MG/ML 100 ML SDV IV ONE (14:32)
--- NOTE | 2018-04-18 15:52 | RAD ---
INDICATION: Urosepsis. Pain in the low midabdomen and LEFT groin. History of bladder cancer. Previous surgery for gastrointestinal ulcers and bowel obstruction. Post cholecystectomy. COMPARISON: January 30, 2018 PET/CT. November 25, 2017 chest radiograph and May 07, [address] TECHNIQUE: Multidetector CT images were obtained from the lung apices to the ischial tuberosities with 89 mL Visipaque 320 IV contrast. Oral contrast administered. CHEST REPORT: There is patchy groundglass opacity throughout both lungs new compared with the January 30, 2018 CT from the PET CT. Small apical blebs. Negative for pleural effusion or pneumothorax. 1.0 cm short axis upper normal precarinal lymph node. Smaller subcarinal lymph node. Negative for thoracic lymphadenopathy by short axis size criteria. Negative for cardiomegaly or pericardial effusion. Unremarkable thoracic aorta and central pulmonary arteries. Negative for suspicious thoracic osseous lesions. CHEST IMPRESSION: Nonspecific new scattered groundglass opacities throughout both lungs with regions of sparing. Absence of volume loss or pleural effusions. Consider bronchopneumonia, ARDS, or hypersensitivity reaction. ABDOMEN PELVIS REPORT: LIVER / GALLBLADDER / PANCREAS / SPLEEN: Prominent 1.4 cm diameter common bile duct and mild prominence of the intrahepatic ducts without change likely reflects sequela of previous cholecystectomy given chronicity and absence of a visualized obstructing stone or lesion. Negative for focal liver lesions. Unremarkable pancreas and spleen. ALIMENTARY TRACT: Postsurgical changes at the stomach including probable transection of the stomach between the body and antrum without change. No acute CT abnormality of the stomach or small bowel. Large volume of formed stool present throughout the colon. No acute CT abnormality of the colon. Negative for ascites, free air, or hernias. MESENTERIC: Unremarkable. ADRENAL / GENITOURINARY: Normal adrenal glands. Bilateral nephrostomy tubes in place extending to the RIGHT lower quadrant urostomy. Symmetric nephrograms and pyelograms. Negative for hydronephrosis. No conspicuous stones. 4 cm simple appearing cortical cyst upper pole LEFT kidney. No suspicious focal renal lesions evident. No suspicious finding at the post prostate and urinary bladder resection bed. RETROPERITONEAL: Negative for lymphadenopathy. VASCULAR: Normal diameter abdominal aorta. Partially decompressed IVC. BONES: Small sclerotic lesion at the RIGHT iliac bone posteriorly without change or associated increased activity on PET scan noted without concern. Negative for suspicious osseous lesions. SOFT TISSUE: Unremarkable. ABDOMEN PELVIS IMPRESSION: #. No CT evidence for local tumor recurrence or abdominal pelvic metastatic disease. #. No CT finding to account for LEFT groin pain.
[2018-04-18] MEDS: ZOSYN 3.375 GM Q8H per EXTENDED INFUSION IVPB SCH ×2 (16:32)
[2018-04-18] MEDS: oxyCODONE SR TAB(*) 20 MG TAB.SR PO SCH (21:06)
[2018-04-19] MEDS: ZOSYN 3.375 GM Q8H per EXTENDED INFUSION IVPB SCH ×6 (00:42→17:20)
[2018-04-19] MEDS: NS 0.9% 1000 ML* 1,000 ML IV SCH ×3 (00:48→22:44)
[2018-04-19 01:21] LABS: Urine Appearance Cloudy; Urine Blood 3+ (Negative); Urine Color Yellow; Urine Ketones Negative (Negative); Urine Protein 1+(30 mg/dL) (Negative); Urine Specific Gravity 1.009 (1.010-1.030); Urine Urobilinogen Negative (Negative)
[2018-04-19 01:25] LABS: Urine Red Blood Cell 3+(>10/hpf) (Absent); Urine White Blood Cell 3+(>20/hpf) (Absent)
[2018-04-19] MEDS: Nystatin SUSPENSION* 100000 UNITS/ML 5 ML UDC PO SCH ×5 (05:32→21:48)
[2018-04-19 06:07] LABS: ABS Basophils 0.1 10^3/ul (0-0.2); ABS Eosinophils 0.2 10^3/ul (0-0.6); ABS Lymphocytes 1.9 10^3/ul (1.0-4.8); ABS Monocytes 0.4 10^3/ul (0-0.8); ABS Neutrophils 7.6 10^3/ul (1.5-7.7); ABS Nucleated RBC 0 10^3/ul; Eosinophil % 2.4 % (0-6); Hematocrit 29 % (42-52); Hemoglobin 9.7 g/dl (14.0-18.0); Lymphocyte % 18.5 % (25-47); Mean Corpuscular HGB Conc 33 g/dl (31-36); Mean Corpuscular Hemoglobin 29 pg (27-31); Mean Corpuscular Volume 87 fL (80-94); Mean Platelet Volume 7.8 um3 (7.4-10.4); Nucleated Red Blood Cells % 0.1; Platelet Count 277 10^3/ul (150-450); Red Blood Count 3.34 10^6/ul (4.00-5.40); Red Cell Distribution Width 16 % (10.5-15); White Blood Count 10.1 10^3/ul (3.5-10.8)
[2018-04-19 06:32] LABS: EGFR Non-African American 58.7 (>60)
[2018-04-19] MEDS: Omeprazole CAP* 20 MG PO SCH (07:27)
[2018-04-19] MEDS: Sertraline* 50 MG TAB PO SCH (09:10)
[2018-04-19] MEDS: predniSONE TAB* 10 MG PO SCH (09:10)
[2018-04-19] MEDS: oxyCODONE SR TAB(*) 20 MG TAB.SR PO SCH ×2 (09:10→21:46)
[2018-04-19] MEDS: Enoxaparin(*) 40 MG/0.4 ML SYR SUBCUT SCH (09:10)
[2018-04-19] MEDS ORDERED: Calcium Carbonate CHEW TAB* 500 MG (TUMS) PO PRN (11:29)
[2018-04-20] MEDS: ZOSYN 3.375 GM Q8H per EXTENDED INFUSION IVPB SCH ×4 (01:03→09:28)
[2018-04-20 04:55] VITALS: BP 113/66
[2018-04-20 05:00] LABS: Hematocrit 28 % (42-52); Hemoglobin 9.6 g/dl (14.0-18.0); Mean Corpuscular HGB Conc 34 g/dl (31-36); Mean Corpuscular Hemoglobin 30 pg (27-31); Mean Corpuscular Volume 87 fL (80-94); Mean Platelet Volume 7.5 um3 (7.4-10.4); Platelet Count 291 10^3/ul (150-450); Red Blood Count 3.25 10^6/ul (4.00-5.40); Red Cell Distribution Width 16 % (10.5-15); White Blood Count 11.7 10^3/ul (3.5-10.8)
[2018-04-20 05:14] LABS: ABS Basophils 0 10^3/ul (0-0.2); ABS Eosinophils 0.2 10^3/ul (0-0.6); ABS Lymphocytes 1.8 10^3/ul (1.0-4.8); ABS Monocytes 0.5 10^3/ul (0-0.8); ABS Neutrophils 8.6 10^3/ul (1.5-7.7); ABS Nucleated RBC 0 10^3/ul; Lymphocyte % 16.4 % (25-47); Nucleated Red Blood Cells % 0
[2018-04-20 05:18] LABS: EGFR Non-African American 64.7 (>60)
[2018-04-20] MEDS: oxyCODONE SR TAB(*) 20 MG TAB.SR PO SCH (09:28)
[2018-04-20] MEDS: Nystatin SUSPENSION* 100000 UNITS/ML 5 ML UDC PO SCH (09:28)
[2018-04-20] MEDS: Omeprazole CAP* 20 MG PO SCH (09:28)
[2018-04-20] MEDS: Sertraline* 50 MG TAB PO SCH (09:29)
[2018-04-20] MEDS: Enoxaparin(*) 40 MG/0.4 ML SYR SUBCUT SCH (09:29)
[2018-04-20] MEDS: predniSONE TAB* 10 MG PO SCH (09:29)
== END 2018-04-20 06:10 | disposition left against medical advice (07) | DRG 139 ==
LOC: MED 10:34
PROVIDERS: ADMIT Internal Medicine Hematology & Oncology; ATTEND Internal Medicine Hematology & Oncology
DX: J18.9 Pneumonia, unspecified organism (principal); B37.0 Candidal stomatitis; C79.51 Secondary malignant neoplasm of bone; R12 Heartburn; C67.9 Malignant neoplasm of bladder, unspecified; F17.210 Nicotine dependence, cigarettes, uncomplicated; Z66 Do not resuscitate; Z79.1 Long term (current) use of non-steroidal anti-inflammatories (NSAID); Z79.891 Long term (current) use of opiate analgesic; Z79.899 Other long term (current) drug therapy; Z83.3 Family history of diabetes mellitus; Z80.7 Family history of other malignant neoplasms of lymphoid, hematopoietic and related tissues; Z80.42 Family history of malignant neoplasm of prostate; Z80.8 Family history of malignant neoplasm of other organs or systems
CPT/HCPCS: 36415; 71260; 74177; 80048; 80053; 81003; 81015; 82533; 83615; 85025; 87086; 87651; 94660; 99223; A9270-GY; J1650; J2543; J7512; Q9967

== ENCOUNTER 2018-07-21 11:32 | Inpatient (IN) | payer BC, MEDICARE ==
[2018-07-21] MEDS ORDERED: NS 0.9% 1000 ML*IV.FLUID IV ONE (11:46)
[2018-07-21] MEDS ORDERED: HYDROmorphone INJ1* 1 MG/ML SYRINGE IV SLOW PU ONE (11:47)
[2018-07-21] MEDS ORDERED: Ondansetron INJ* 2 MG/ML VIAL IV ONE (11:47)
--- NOTE | 2018-07-21 12:02 | ED ---
HPI Febrile Illness - HPI Summary HPI Summary: A 63 y/o male presents to [facility] with a chief complaint of a fever spike when he was at radiology at 10:20. He rates his pain as 8/10. In the ED the patient's temperature is 97.9. The patient also c/o N/V since 11:20 and was given Zofran. The patient sees Dr. Herrera. He reports replaced stents in his kidneys. He notes that his BP usually runs low. In the ED his BP is 94/56. There is also blood in his urostomy. - History of Current Complaint Chief Complaint: EDFever Time Seen by Provider: 07/21/18 11:42 Hx Obtained From: Patient, Family/Cardiology Clinical Consultant Onset/Duration: Started Minutes Ago, Resolved Time of Onset: 10:20 Timing: Intermittent, Lasting Minutes Temperature: 97.9 F - in the ED Initial Severity: Severe Current Severity: Severe Pain Intensity: 8 Pain Scale Used: 0-10 Numeric Aggravating Factors: Nothing Alleviating Factors: Nothing Associated Signs and Symptoms: Nausea, Vomiting - Additional Pertinent History Primary Care Physician: [id number] - Allergy/Home Medications Allergies/Adverse Reactions: Allergies Allergy/AdvReac Type Severity Reaction Status Date / Time No Known Allergies Allergy Verified 07/21/18 12:13 PMH/Surg Hx/FS Hx/Imm Hx Endocrine/Hematology History: Denies: Hx Diabetes, Hx Systemic Lupus Erythematosus, Other Endocrine/ Hematological Disorders - bladder CA w/ mets and chemo (completed recently) Cardiovascular History: Reports: Other Cardiovascular Problems/Disorders - 1993 AAA, RUPTURED, SURGERY Denies: Hx Congestive Heart Failure, Hx Hypertension, Hx Pacemaker/ICD GI History: Reports: Hx Gall Bladder Disease, Hx Gastroesophageal Reflux Disease - ON DAILY MEDS, NO Sx, Hx Irritable Bowel, Hx Ileostomy - Reversed, Hx Ulcer - HX OF, Other GI Disorders - DUMPING SYNDROME History: Reports: Other Problems/Disorders - bladder ca with urostomy Denies: Hx Dialysis, Hx Renal Disease Musculoskeletal History: Reports: Hx Back Problems Denies: Hx Rheumatoid Arthritis Sensory History: Reports: Hx Contacts or Glasses Denies: Hx Deafness, Hx Hearing Aid Opthamlomology History: Reports: Hx Contacts or Glasses Neurological History: Reports: Other Neuro Impairments/Disorders - NERVE PAIN R/ T OPEN AHMET 10/12/15 Psychiatric History: Reports: Hx Panic Disorder - Cancer History Cancer Type, Location and Year: BLADDER CANCER Hx Chemotherapy: Yes - Surgical History Surgery Procedure, Year, and Place: 3313-7138 Seven abdominal surgeries , all for ulcer or abdominal blockage,. 1993 ABD ANEURYSM REPAIR - [facility]. 2013 colectomy/LYSIS OF ADHESIONS [facility]. 09/2015 GALLBLADDER [facility]. 10/2015 & 12/2015 BLADDER TUMORS [facility] Hx Anesthesia Reactions: No - Immunization History Date of Tetanus Vaccine: unk Date of Influenza Vaccine: 2014 Infectious Disease History: No Infectious Disease History: Denies: Hx of Known/Suspected MRSA, Hx Shingles, Hx Tuberculosis, History Other Infectious Disease, Traveled Outside the [place] in Last 30 Days - Family History Known Family History: Positive: Diabetes Negative: Hypertension - Social History Alcohol Use: None Hx Substance Use: No Substance Use Type: Reports: None Substance Use Comment - Amount & Last Used: medical marijuana Hx Tobacco Use: Yes Smoking Status (MU): Heavy Every Day Tobacco Smoker Type: Cigarettes Amount Used/How Often: 1/2 PPD X 40 YEARS Length of Time of Smoking/Using Tobacco: SINCE 'S Have You Smoked in the Last Year: Yes Review of Systems Positive: Fever - spiked BRACER, in ED temp is 97.9 Positive: Vomiting, Nausea Positive: hematuria All Other Systems Reviewed And Are Negative: Yes Physical Exam - Summary Physical Exam Summary: Appearance: The patient is cachectic and in no acute pain. Skin: The skin is warm and dry and skin color reflects adequate perfusion. HEENT: The head is normocephalic and atraumatic. The pupils are equal and reactive. The conjunctivae are clear and without drainage. Nares are patent and without drainage. Mouth reveals moist mucous membranes and the throat is without erythema and exudate. The external ears are intact. The ear canals are patent and without drainage. The tympanic membranes are intact. Neck: The neck is supple with full range of motion and non-tender. There are no carotid bruits. There is no neck vein distension. Respiratory: Chest is non-tender. Lungs are clear to auscultation and breath sounds are symmetrical and equal. Cardiovascular: Heart is tachycardic. There is no murmur or rub auscultated. There is no peripheral edema and pulses are symmetrical and equal. Abdomen: Suprapubic catheter full of blood. The abdomen is soft and non-tender. There are normal bowel sounds heard in all four quadrants and there is no organomegaly palpated. Musculoskeletal: There is no back tenderness noted. Extremities are non-tender with full range of motion. There is good capillary refill. There is no peripheral edema or calf tenderness elicited. Neurological: Patient is alert and oriented to person, place and time. The patient has symmetrical motor strength in all four extremities. Cranial nerves are grossly intact. Deep tendon reflexes are symmetrical and equal in all four extremities. Psychiatric: The patient has an appropriate affect and does not exhibit any anxiety or depression. Triage Information Reviewed: Yes Vital Signs On Initial Exam: Initial Vitals Temp Pulse Resp BP Pulse Ox 97.9 F 107 20 94/56 95 07/21/18 11:33 07/21/18 11:33 07/21/18 11:33 07/21/18 11:33 07/21/18 11:33 Vital Signs Reviewed: Yes Diagnostics - Vital Signs Vital Signs Temp Pulse Resp BP Pulse Ox 07/21/18 11:33 97.9 F 107 20 94/56 95 - Laboratory Result Diagrams: 07/21/18 17:03 07/21/18 17:03 Lab Statement: Any lab studies that have been ordered have been reviewed, and results considered in the medical decision making process. Re-Evaluation - Re-Evaluation First Eval Re-Evaluation Time: 13:35 Change: Unchanged Comment: still passing a lot of blood Second Eval Re-Evaluation Time: 14:15 Change: Unchanged Course/Dx - Course Course Of Treatment: Mr. Pruett was sent over from the radiology department after urinary stent replacement. Subsequent to the procedure he developed a fever and hypotension. He was given Levaquin IV. On arrival here his blood pressure was in the 90s and he was tachycardic at the 120s and he had significant diarrhea. There was a fair amount of bleeding into his urinary bag. He was given IV fluids at 30 cc/kg per sepsis protocol and this did improve his vitals but he continued to be marginally tachycardic with a soft blood pressure. He reports to me that his blood pressure normally runs low. Dr. Lei was contacted for admission to the hospital and after speaking with her the patient began to drop his blood pressure some again ultimately was admitted to the ICU. - Diagnoses Provider Diagnoses: Severe sepsis - Provider Notifications Discussed Care Of Patient With: Sheela Lei Time Discussed With Above Provider: 13:35 Instructed by Provider To: Other - Recommends CTA chest. - Critical Care Time Critical Care Time: 30-74 min Discharge - Sign-Out/Discharge Documenting (check all that apply): Patient Departure - admit - Discharge Plan Condition: Fair Disposition: ADMITTED TO [facility] - Billing Disposition and Condition Condition: FAIR Disposition: Admitted to [facility] - Attestation Statements Document Initiated by Scribe: Yes Documenting Scribe: Jack Engle Provider For Whom Alyssa is Documenting (Include Credential): Rodríguez Edward MD Scribe Attestation: Jack Cabello, scribed for Rodríguez Edward MD on 07/21/18 at 2126. Scribe Documentation Reviewed: Yes Provider Attestation: The documentation as recorded by the Jack torres accurately reflects the service I personally performed and the decisions made by , Rodríguez Edward MD Status of Scribe Document: Viewed Consult Consult: At 14:15 Dr. Lei accepted the patient for admission.
[2018-07-21 12:03] LABS: ABS Basophils 0 10^3/ul (0-0.2); ABS Eosinophils 0.2 10^3/ul (0-0.6); ABS Lymphocytes 0.6 10^3/ul (1.0-4.8); ABS Monocytes 0 10^3/ul (0-0.8); ABS Neutrophils 1.7 10^3/ul (1.5-7.7); ABS Nucleated RBC 0 10^3/ul; Eosinophil % 8.9 %; Hematocrit 34 % (42-52); Hemoglobin 11.1 g/dl (14.0-18.0); Lymphocyte % 24.2 %; Mean Corpuscular HGB Conc 33 g/dl (31-36); Mean Corpuscular Hemoglobin 28 pg (27-31); Mean Corpuscular Volume 83 fL (80-94); Mean Platelet Volume 7.6 fL (7.4-10.4); Nucleated Red Blood Cells % 0.1; Platelet Count 325 10^3/ul (150-450); Red Blood Count 4.06 10^6/ul (4.00-5.40); Red Cell Distribution Width 20 % (10.5-15); White Blood Count 2.5 10^3/ul (3.5-10.8)
[2018-07-21 12:19] LABS: ALT 8 U/L (7-52); Albumin 3.3 g/dL (3.2-5.2); Alkaline Phosphatase 109 U/L (34-104); BUN/Creatinine Ratio 19.8 (8-20); Blood Urea Nitrogen 24 mg/dL (6-24); CO2 Carbon Dioxide 25 mmol/L (22-32); Calcium 8.9 mg/dL (8.6-10.3); Chloride 105 mmol/L (101-111); EGFR African American 73.1 (>60); EGFR Non-African American 60.4 (>60); Globulin 3.3 g/dL (2-4); Glucose 77 mg/dL (70-100); Sodium 137 mmol/L (135-145); Total Protein 6.6 g/dL (6.4-8.9)
[2018-07-21 12:21] LABS: Troponin I 0.01 ng/mL (<0.04)
[2018-07-21 12:23] LABS: Activated Partial Thrombo Time 25.4 seconds (26.0-36.3); INR 1.02 (0.77-1.02)
[2018-07-21 12:26] LABS: Anion Gap 7 mmol/L (2-11)
[2018-07-21] MEDS ORDERED: Iohexol 350* (CONTRAST) 500 ML MDV IV ONE (13:50)
[2018-07-21] MEDS ORDERED: NS 0.9% 1000 ML* 1,000 ML IV ONE (14:53)
[2018-07-21] MEDS ORDERED: Ondansetron INJ* 2 MG/ML VIAL IV PRN (15:45)
[2018-07-21] MEDS ORDERED: Ondansetron ODT TAB* 4 MG PO PRN (15:45)
[2018-07-21] MEDS ORDERED: HYDROmorphone INJ1* 1 MG/ML SYRINGE IV SLOW PU PRN (15:45)
[2018-07-21] MEDS ORDERED: Acetaminophen TAB* 325 MG PO PRN (15:49)
[2018-07-21] MEDS ORDERED: Piperacillin/Tazobac ADVAN(*) 3.375 GM in NS 0.9% 100 ML* 100 ML IVPB ONE (15:57)
[2018-07-21] MEDS ORDERED: Zosyn per Pharmacy* NOTE FOLLOW UP SCH (16:00)
[2018-07-21] MEDS ORDERED: NS 0.9% 1000 ML* 1,000 ML IV SCH (16:00)
[2018-07-21 17:12] LABS: Urine Appearance Turbid; Urine Bacteria Absent (Absent); Urine Bilirubin Negative (Negative); Urine Blood 3+ (Negative); Urine Glucose 1+(50 mg/dL) (Negative); Urine Ketones Trace (Negative); Urine Nitrite Negative (Negative); Urine Protein 3+(>=500 mg/dL) (Negative); Urine Specific Gravity 1.017 (1.010-1.030); Urine Urobilinogen Negative (Negative)
[2018-07-21 17:21] LABS: Urine Color Red
[2018-07-21 17:22] LABS: Urine Red Blood Cell 3+(>10/hpf) (Absent); Urine White Blood Cell 1+(6-10/hpf) (Absent)
[2018-07-21 17:23] LABS: ABS Basophils 0 10^3/ul (0-0.2); ABS Eosinophils 0.1 10^3/ul (0-0.6); ABS Lymphocytes 0.2 10^3/ul (1.0-4.8); ABS Monocytes 0 10^3/ul (0-0.8); ABS Nucleated RBC 0 10^3/ul; Eosinophil % 0.9 %; Hematocrit 29 % (42-52); Hemoglobin 9.6 g/dl (14.0-18.0); Lymphocyte % 1.4 %; Mean Corpuscular HGB Conc 33 g/dl (31-36); Mean Corpuscular Hemoglobin 27 pg (27-31); Mean Corpuscular Volume 84 fL (80-94); Mean Platelet Volume 6.9 fL (7.4-10.4); Nucleated Red Blood Cells % 0; Platelet Count 245 10^3/ul (150-450); Red Blood Count 3.52 10^6/ul (4.00-5.40); Red Cell Distribution Width 20 % (10.5-15); White Blood Count 15.4 10^3/ul (3.5-10.8)
--- NOTE | 2018-07-21 17:54 | CONSULT ---
Consult Consult: PCCM Consult CC: hypotension HPI: 63M with complicated abdominal surgical history, bladder cancer s/p urostomy on immunotherapy with keytruda presents with hypotension. The patient had not been feeling well for the past several weeks. Has been unable to sleep. Had been having nausea. Had diarrhea today. The patient went to outpatient IR for urinary stent replacement and after the procedure the patient began to have chills and became hypotensive. The patients bp was measured to be in the low 70s. He was given levaquin and iv fluids and transferred to the ER. In the ER he was switched to zosyn. After 3L of normal saline the patient's bp improved into the 80s. Lactate initially measured at 3.3 improved to 1.7. The patients urostomy also began having bloody output after the procedure. ROS - as per HPI PMHx - bladder cancer, h/o dumping syndrome, gastric ulcer PSHx - partial gastrectomy, partial duodenal resection with subsequent 11 abdominal surgeries for this, urostomy creation with renal stents All - nkda SocHx - +smoker, no etoh, no drugs FamHx - brain cancer, lymphoma, SLE, parkinsons, prostate cancer, DM PE VS Vital Signs: Temp Pulse Resp BP Pulse Ox 100.9 F 89 14 79/49 95 07/21/18 15:42 07/21/18 17:02 07/21/18 17:17 07/21/18 17:17 07/21/18 17:00 Gen - chronically ill Heent - ncat, eomi, perrl neck - no jvd cv - s1/s2, no murmur lungs - cta, no wheeze abd - soft, nt, +urostomy with hematuria ext - no cce neuro - non-focal Labs Laboratory Results - last 24 hr 07/21/18 07/21/18 07/21/18 11:20 11:20 11:20 WBC 2.5 L RBC 4.06 Hgb 11.1 L Hct 34 L MCV 83 MCH 28 MCHC 33 RDW 20 H Plt Count 325 MPV 7.6 Neut % (Auto) 66.2 Lymph % (Auto) 24.2 [place] % (Auto) 0.3 Eos % (Auto) 8.9 Baso % (Auto) 0.4 Absolute Neuts (auto) 1.7 Absolute Lymphs (auto) 0.6 L Absolute Monos (auto) 0 Absolute Eos (auto) 0.2 Absolute Basos (auto) 0 Absolute Nucleated RBC 0 Nucleated RBC % 0.1 INR (Anticoag Therapy) 1.02 APTT 25.4 L Sodium 137 Potassium TNP Chloride 105 Carbon Dioxide 25 Anion Gap 7 BUN 24 Creatinine 1.21 H Est GFR ( Amer) 73.1 Est GFR (Non-Af Amer) 60.4 BUN/Creatinine Ratio 19.8 Glucose 77 Lactic Acid Calcium 8.9 Total Bilirubin 0.40 AST TNP ALT 8 Alkaline Phosphatase 109 H Troponin I 0.01 Total Protein 6.6 Albumin 3.3 Globulin 3.3 Albumin/Globulin Ratio 1.0 Urine Color Urine Appearance Urine pH Ur Specific [place] Urine Protein Urine Ketones Urine Blood Urine Nitrate Urine Bilirubin Urine Urobilinogen Ur Leukocyte Esterase Urine WBC (Auto) Urine RBC (Auto) Urine Bacteria Urine Glucose 07/21/18 07/21/18 07/21/18 13:13 15:44 17:03 WBC 15.4 H RBC 3.52 L Hgb 9.6 L Hct 29 L MCV 84 MCH 27 MCHC 33 RDW 20 H Plt Count 245 MPV 6.9 L Neut % (Auto) 97.4 Lymph % (Auto) 1.4 [place] % (Auto) 0.2 Eos % (Auto) 0.9 Baso % (Auto) 0.1 Absolute Neuts (auto) 15.0 H Absolute Lymphs (auto) 0.2 L Absolute Monos (auto) 0 Absolute Eos (auto) 0.1 Absolute Basos (auto) 0 Absolute Nucleated RBC 0 Nucleated RBC % 0 INR (Anticoag Therapy) APTT Sodium Potassium Chloride Carbon Dioxide Anion Gap BUN Creatinine Est GFR ( Amer) Est GFR (Non-Af Amer) BUN/Creatinine Ratio Glucose Lactic Acid 3.3 H* Calcium Total Bilirubin AST ALT Alkaline Phosphatase Troponin I Total Protein Albumin Globulin Albumin/Globulin Ratio Urine Color Red A Urine Appearance Turbid Urine pH 7.0 Ur Specific [place] 1.017 Urine Protein 3+(>=500 mg/dl) A Urine Ketones Trace A Urine Blood 3+ A Urine Nitrate Negative Urine Bilirubin Negative Urine Urobilinogen Negative Ur Leukocyte Esterase Trace A Urine WBC (Auto) 1+(6-10/hpf) A Urine RBC (Auto) 3+(>10/hpf) A Urine Bacteria Absent Urine Glucose 1+(50 mg/dl) A 07/21/18 07/21/18 17:03 17:03 WBC RBC Hgb Hct MCV MCH MCHC RDW Plt Count MPV Neut % (Auto) Lymph % (Auto) [place] % (Auto) Eos % (Auto) Baso % (Auto) Absolute Neuts (auto) Absolute Lymphs (auto) Absolute Monos (auto) Absolute Eos (auto) Absolute Basos (auto) Absolute Nucleated RBC Nucleated RBC % INR (Anticoag Therapy) APTT Sodium Potassium 3.5 Chloride Carbon Dioxide Anion Gap BUN Creatinine Est GFR ( Amer) Est GFR (Non-Af Amer) BUN/Creatinine Ratio Glucose Lactic Acid 1.7 Calcium Total Bilirubin AST ALT Alkaline Phosphatase Troponin I Total Protein Albumin Globulin Albumin/Globulin Ratio Urine Color Urine Appearance Urine pH Ur Specific [place] Urine Protein Urine Ketones Urine Blood Urine Nitrate Urine Bilirubin Urine Urobilinogen Ur Leukocyte Esterase Urine WBC (Auto) Urine RBC (Auto) Urine Bacteria Urine Glucose Imaging PET Scan 07/14/18 IMPRESSION: Interstitial and alveolar infiltrates are noted throughout both lung kuo which has progressed since previous exam. These demonstrate SUV values of up to 5.1 and is diffusely located in the upper lobes although areas in the lower lobes are also present. Possibility of metastatic disease should BE considered. Inflammatory process is considered less likely. Focal area of increased metabolic activity in the left lower quadrant is noted which was not present previously. Impression 63M with complicated abdominal surgical history, bladder cancer s/p urostomy on immunotherapy with keytruda presents with hypotension after renal stent replacement. Plan Neuro - pain control CV - hypotension - 2/2 septic shock - iv hydration - levophed for bp support pulm - alveolar infiltrates on recent pet ct - pna vs metastatic disease vs pneumonitis 2/2 keytruda - oxygenating ok on nasal cannula - will need need repeat ct scan when acute issue resolved id - septic shock - 2/2 transient bacteremia during renal stent replacement vs pna - empiric zosyn - f/u cultures - serial lactates gi - nausea/vomiting/diarrhea - send stool culture - send stool c diff - anti-emetics prn - advance diet as tolerated renal - hematuria - disussed with IR and is likely secondary the procedure - if does not clear will send for CT scan to r/o persistent bleeding - monitor i/o - monitor lytes heme - bladder cancer - management per onc endo - monitor fs lines - piv, port ppx - gi/dvt DNR Critical Care Time: 90 mins
[2018-07-21] MEDS ORDERED: Norepinephrine VIAL* 4 MG in NS 0.9% 250 ML* 246 ML IV SCH (18:00)
[2018-07-21] MEDS: Vasopressin* 100 UNITS in D5W 250 ML BAG IVPB SCH (20:00)
[2018-07-21] MEDS: ZOSYN 3.375 GM Q8H per EXTENDED INFUSION IVPB SCH ×2 (21:57)
[2018-07-21 21:59] LABS: Hematocrit 28 % (42-52); Mean Corpuscular HGB Conc 32 g/dl (31-36); Mean Corpuscular Hemoglobin 27 pg (27-31); Mean Corpuscular Volume 84 fL (80-94); Mean Platelet Volume 7.3 fL (7.4-10.4); Platelet Count 236 10^3/ul (150-450); Red Blood Count 3.33 10^6/ul (4.00-5.40); Red Cell Distribution Width 20 % (10.5-15); White Blood Count 31.9 10^3/ul (3.5-10.8)
[2018-07-21 22:15] LABS: BUN/Creatinine Ratio 18.5 (8-20); Calcium 7.1 mg/dL (8.6-10.3); EGFR African American 58.8 (>60); EGFR Non-African American 48.6 (>60); Potassium 3.7 mmol/L (3.5-5.0)
[2018-07-21] MEDS ORDERED: oxyCODONE/Acetamin 5/325 MG* TAB ONE (22:45)
[2018-07-21] MEDS: oxyCODONE/Acetamin 5/325 MG* TAB PO PRN (22:49)
[2018-07-21] MEDS ORDERED: NS 0.9% IV SCH (23:00)
[2018-07-21] MEDS ORDERED: NOREPINEPHRINE IV SCH (23:00)
[2018-07-21] MEDS: Norepinephrine VIAL* 8 MG in NS 0.9% 500 ML* 492 ML IV SCH (23:28)
[2018-07-22] MEDS ORDERED: HYDROmorphone INJ1* 1 MG/ML SYRINGE IV SLOW PU PRN (00:03)
[2018-07-22] MEDS: ZOSYN 3.375 GM Q8H per EXTENDED INFUSION IVPB SCH ×6 (04:27→21:43)
[2018-07-22 06:35] LABS: Hematocrit 26 % (42-52); Hemoglobin 8.5 g/dl (14.0-18.0); Mean Corpuscular HGB Conc 32 g/dl (31-36); Mean Corpuscular Hemoglobin 27 pg (27-31); Mean Corpuscular Volume 83 fL (80-94); Mean Platelet Volume 7.4 fL (7.4-10.4); Platelet Count 229 10^3/ul (150-450); Red Blood Count 3.17 10^6/ul (4.00-5.40); Red Cell Distribution Width 20 % (10.5-15); White Blood Count 45.3 10^3/ul (3.5-10.8)
[2018-07-22 06:50] LABS: Albumin 2.5 g/dL (3.2-5.2); Albumin/Globulin Ratio 0.9 (1-3); BUN/Creatinine Ratio 19.7 (8-20); Calcium 7.5 mg/dL (8.6-10.3); EGFR African American 54.1 (>60); EGFR Non-African American 44.7 (>60); Globulin 2.7 g/dL (2-4); Potassium 4.1 mmol/L (3.5-5.0); Total Bilirubin 0.3 mg/dL (0.2-1.0); Total Protein 5.2 g/dL (6.4-8.9)
--- NOTE | 2018-07-22 09:38 | PN ---
Sepsis Event Evaluation Date of Evaluation: 07/21/18 Time of Evaluation: 22:00 Current Stage of Sepsis: Septic Shock Vital Signs - Last 12 Hours: Vital Signs - 12 hr Temp Pulse Resp BP Pulse Ox 07/22/18 09:01 66 18 94/61 99 07/22/18 09:00 68 17 97 07/22/18 08:53 70 21 94/53 92 07/22/18 08:46 71 19 83/54 89 07/22/18 08:30 64 16 99/60 98 07/22/18 08:15 65 16 97/58 91 07/22/18 08:01 69 19 81 07/22/18 08:00 67 19 99/56 98 07/22/18 07:45 63 14 110/57 99 07/22/18 07:30 64 18 101/55 98 07/22/18 07:15 65 18 94/52 98 07/22/18 07:04 65 19 105/61 98 07/22/18 07:01 69 17 97 07/22/18 07:00 66 14 89/48 98 07/22/18 06:45 65 19 100/53 98 07/22/18 06:30 66 18 98/54 94 07/22/18 06:16 17 98/61 07/22/18 06:00 19 121/62 07/22/18 05:36 20 07/22/18 05:30 67 14 103/76 96 07/22/18 05:15 66 17 100/66 99 07/22/18 05:00 69 17 85/55 97 07/22/18 04:45 67 14 106/70 98 07/22/18 04:30 72 19 100/58 97 07/22/18 04:15 67 15 93/54 98 07/22/18 04:01 68 12 100 07/22/18 04:00 68 14 106/68 99 07/22/18 03:45 67 14 99/60 97 07/22/18 03:30 68 16 102/64 97 07/22/18 03:15 68 15 81/46 94 07/22/18 03:01 69 12 97/57 99 07/22/18 03:00 69 14 98 07/22/18 02:45 66 9 86/55 99 07/22/18 02:30 68 11 105/66 99 07/22/18 02:15 66 12 95/58 99 07/22/18 02:13 14 07/22/18 02:01 67 15 99 07/22/18 02:00 69 16 107/69 96 07/22/18 01:45 70 13 96/59 99 07/22/18 01:30 72 15 90/62 98 07/22/18 01:15 72 16 93/54 99 07/22/18 01:04 75 21 89/51 100 07/22/18 01:00 80 24 97 07/22/18 00:46 75 20 96/59 98 07/22/18 00:30 71 16 93/58 97 07/22/18 00:29 72 18 97 07/22/18 00:15 75 13 95/61 95 07/22/18 00:01 74 19 99 07/22/18 00:00 74 18 93/60 97 07/21/18 23:45 75 19 108/65 98 07/21/18 23:42 98.7 F 07/21/18 23:30 74 15 77/58 95 07/21/18 23:15 83 18 80/48 96 07/21/18 23:01 84 19 95 07/21/18 23:00 83 17 79/48 94 07/21/18 22:49 19 07/21/18 22:45 83 18 79/54 94 07/21/18 22:30 75 18 100/66 97 07/21/18 22:15 72 18 103/60 96 07/21/18 22:01 72 19 95 07/21/18 22:00 71 17 102/58 95 07/21/18 21:53 22 07/21/18 21:45 72 19 103/64 96 Lactic Acid: 07/21/18 07/21/18 07/21/18 13:13 17:03 21:30 Lactic Acid 3.3 H* 1.7 1.3 - Cardiopulmonary Exam Capillary Refill: Immediate Respiratory: Symmetrical Chest Expansion and Respiratory Effort, Clear to Auscultation, Clear to Percussion, Clear to Palpation Cardiovascular: NL Sounds; No Murmurs; No JVD, No Edema - Peripheral Pulse Exam Radial Pulses: Bilateral Normal Pedal Pulses: Bilateral Normal Posterior Tibial Pulse: Bilateral Normal Femoral Pulses: Bilateral Normal Popliteal Pulses: Bilateral Normal - Skin Exam Skin Exam: Normal Turgor, Pale - [place] Coma Scale Best Eye Response: 4 - Spontaneous Best Motor Response: 6 - Obeys Commands Best Verbal Response: 5 - Oriented Coma Scale Total: 15 Assess/Plan/Problems-Billing Assessment:
--- NOTE | 2018-07-22 09:59 | PN ---
Date of Service: 07/22/18 Critical Care Services: 63M with complicated abdominal surgical history, bladder cancer s/p urostomy on immunotherapy with keytruda presents with hypotension after renal stent replacement. 07/22: Levophed down to 4 from 18. Hematuria clearing. Vital Signs: Temp Pulse Resp BP SpO2 FiO2 98.7 F 66 18 94/61 99 07/21/18 23:42 07/22/18 09:01 07/22/18 09:01 07/22/18 09:01 07/22/18 09:01 Physical Exam: Gen - chronically ill, grumpy Heent - ncat, eomi, perrl neck - no jvd cv - s1/s2, no murmur lungs - cta, no wheeze abd - soft, nt, +urostomy with hematuria ext - no cce neuro - non-focal Fluid Balance (Past 24 Hours): I= O= Net Intake & Output 07/20/18 07/21/18 07/22/18 07/23/18 06:59 06:59 06:59 06:59 Intake Total 5725 240 Output Total 285 300 Balance 5440 -60 Weight 63.503 kg Intake: IV Fluids 3100 IVPB 1343 NS W/ ABX 1343 Medicated IV 442 LEVOPHED 386 VASOPRESSIN 56 Oral 840 240 Output: [place] 285 300 Other: Estimated Stool Amount Medium Labs: Laboratory Results - last 24 hr 07/21/18 07/21/18 07/21/18 11:20 11:20 11:20 WBC 2.5 L RBC 4.06 Hgb 11.1 L Hct 34 L MCV 83 MCH 28 MCHC 33 RDW 20 H Plt Count 325 MPV 7.6 Neut % (Auto) 66.2 Lymph % (Auto) 24.2 [place] % (Auto) 0.3 Eos % (Auto) 8.9 Baso % (Auto) 0.4 Absolute Neuts (auto) 1.7 Absolute Lymphs (auto) 0.6 L Absolute Monos (auto) 0 Absolute Eos (auto) 0.2 Absolute Basos (auto) 0 Absolute Nucleated RBC 0 Nucleated RBC % 0.1 INR (Anticoag Therapy) 1.02 APTT 25.4 L Sodium 137 Potassium TNP Chloride 105 Carbon Dioxide 25 Anion Gap 7 BUN 24 Creatinine 1.21 H Est GFR ( Amer) 73.1 Est GFR (Non-Af Amer) 60.4 BUN/Creatinine Ratio 19.8 Glucose 77 Lactic Acid Calcium 8.9 Total Bilirubin 0.40 AST TNP ALT 8 Alkaline Phosphatase 109 H Troponin I 0.01 Total Protein 6.6 Albumin 3.3 Globulin 3.3 Albumin/Globulin Ratio 1.0 Urine Color Urine Appearance Urine pH Ur Specific [place] Urine Protein Urine Ketones Urine Blood Urine Nitrate Urine Bilirubin Urine Urobilinogen Ur Leukocyte Esterase Urine WBC (Auto) Urine RBC (Auto) Urine Bacteria Urine Glucose Blood Type Antibody Screen 07/21/18 07/21/18 07/21/18 13:13 15:44 17:03 WBC 15.4 H RBC 3.52 L Hgb 9.6 L Hct 29 L MCV 84 MCH 27 MCHC 33 RDW 20 H Plt Count 245 MPV 6.9 L Neut % (Auto) 97.4 Lymph % (Auto) 1.4 [place] % (Auto) 0.2 Eos % (Auto) 0.9 Baso % (Auto) 0.1 Absolute Neuts (auto) 15.0 H Absolute Lymphs (auto) 0.2 L Absolute Monos (auto) 0 Absolute Eos (auto) 0.1 Absolute Basos (auto) 0 Absolute Nucleated RBC 0 Nucleated RBC % 0 INR (Anticoag Therapy) APTT Sodium Potassium Chloride Carbon Dioxide Anion Gap BUN Creatinine Est GFR ( Amer) Est GFR (Non-Af Amer) BUN/Creatinine Ratio Glucose Lactic Acid 3.3 H* Calcium Total Bilirubin AST ALT Alkaline Phosphatase Troponin I Total Protein Albumin Globulin Albumin/Globulin Ratio Urine Color Red A Urine Appearance Turbid Urine pH 7.0 Ur Specific [place] 1.017 Urine Protein 3+(>=500 mg/dl) A Urine Ketones Trace A Urine Blood 3+ A Urine Nitrate Negative Urine Bilirubin Negative Urine Urobilinogen Negative Ur Leukocyte Esterase Trace A Urine WBC (Auto) 1+(6-10/hpf) A Urine RBC (Auto) 3+(>10/hpf) A Urine Bacteria Absent Urine Glucose 1+(50 mg/dl) A Blood Type Antibody Screen 07/21/18 07/21/18 07/21/18 17:03 17:03 21:30 WBC RBC Hgb Hct MCV MCH MCHC RDW Plt Count MPV Neut % (Auto) Lymph % (Auto) [place] % (Auto) Eos % (Auto) Baso % (Auto) Absolute Neuts (auto) Absolute Lymphs (auto) Absolute Monos (auto) Absolute Eos (auto) Absolute Basos (auto) Absolute Nucleated RBC Nucleated RBC % INR (Anticoag Therapy) APTT Sodium 133 L Potassium 3.5 3.7 Chloride 107 Carbon Dioxide 20 L Anion Gap 6 BUN 27 H Creatinine 1.46 H Est GFR ( Amer) 58.8 Est GFR (Non-Af Amer) 48.6 BUN/Creatinine Ratio 18.5 Glucose 102 H Lactic Acid 1.7 Calcium 7.1 L Total Bilirubin AST ALT Alkaline Phosphatase Troponin I Total Protein Albumin Globulin Albumin/Globulin Ratio Urine Color Urine Appearance Urine pH Ur Specific [place] Urine Protein Urine Ketones Urine Blood Urine Nitrate Urine Bilirubin Urine Urobilinogen Ur Leukocyte Esterase Urine WBC (Auto) Urine RBC (Auto) Urine Bacteria Urine Glucose Blood Type Antibody Screen 07/21/18 07/21/18 07/21/18 21:30 21:30 21:30 WBC 31.9 H RBC 3.33 L Hgb 9.0 L Hct 28 L MCV 84 MCH 27 MCHC 32 RDW 20 H Plt Count 236 MPV 7.3 L Neut % (Auto) Lymph % (Auto) [place] % (Auto) Eos % (Auto) Baso % (Auto) Absolute Neuts (auto) Absolute Lymphs (auto) Absolute Monos (auto) Absolute Eos (auto) Absolute Basos (auto) Absolute Nucleated RBC Nucleated RBC % INR (Anticoag Therapy) APTT Sodium Potassium Chloride Carbon Dioxide Anion Gap BUN Creatinine Est GFR ( Amer) Est GFR (Non-Af Amer) BUN/Creatinine Ratio Glucose Lactic Acid 1.3 Calcium Total Bilirubin AST ALT Alkaline Phosphatase Troponin I Total Protein Albumin Globulin Albumin/Globulin Ratio Urine Color Urine Appearance Urine pH Ur Specific [place] Urine Protein Urine Ketones Urine Blood Urine Nitrate Urine Bilirubin Urine Urobilinogen Ur Leukocyte Esterase Urine WBC (Auto) Urine RBC (Auto) Urine Bacteria Urine Glucose Blood Type O Negative Antibody Screen Negative 07/22/18 07/22/18 06:28 06:28 WBC 45.3 H RBC 3.17 L Hgb 8.5 L Hct 26 L MCV 83 MCH 27 MCHC 32 RDW 20 H Plt Count 229 MPV 7.4 Neut % (Auto) Lymph % (Auto) [place] % (Auto) Eos % (Auto) Baso % (Auto) Absolute Neuts (auto) Absolute Lymphs (auto) Absolute Monos (auto) Absolute Eos (auto) Absolute Basos (auto) Absolute Nucleated RBC Nucleated RBC % INR (Anticoag Therapy) APTT Sodium 136 Potassium 4.1 Chloride 107 Carbon Dioxide 20 L Anion Gap 9 BUN 31 H Creatinine 1.57 H Est GFR ( Amer) 54.1 Est GFR (Non-Af Amer) 44.7 BUN/Creatinine Ratio 19.7 Glucose 81 Lactic Acid Calcium 7.5 L Total Bilirubin 0.30 AST 65 H ALT 45 Alkaline Phosphatase 204 H Troponin I Total Protein 5.2 L Albumin 2.5 L Globulin 2.7 Albumin/Globulin Ratio 0.9 L Urine Color Urine Appearance Urine pH Ur Specific [place] Urine Protein Urine Ketones Urine Blood Urine Nitrate Urine Bilirubin Urine Urobilinogen Ur Leukocyte Esterase Urine WBC (Auto) Urine RBC (Auto) Urine Bacteria Urine Glucose Blood Type Antibody Screen Studies: PET Scan 07/14/18 IMPRESSION: Interstitial and alveolar infiltrates are noted throughout both lung kuo which has progressed since previous exam. These demonstrate SUV values of up to 5.1 and is diffusely located in the upper lobes although areas in the lower lobes are also present. Possibility of metastatic disease should BE considered. Inflammatory process is considered less likely. Focal area of increased metabolic activity in the left lower quadrant is noted which was not present previously. Impression: 63M with complicated abdominal surgical history, bladder cancer s/p urostomy on immunotherapy with keytruda presents with hypotension after renal stent replacement. Plan: Neuro - pain control CV - hypotension - 2/2 septic shock - iv hydration - levophed for bp support pulm - alveolar infiltrates on recent pet ct - pna vs metastatic disease vs pneumonitis 2/2 keytruda - oxygenating ok on nasal cannula - will need need repeat ct scan when acute issue resolved id - septic shock - 2/2 transient bacteremia during renal stent replacement - empiric zosyn - f/u cultures - serial lactates gi - nausea/vomiting/diarrhea - send stool culture - c diff pcr neg - anti-emetics prn - advance diet as tolerated renal - pam, hematuria - hematuria clearing - monitor i/o - monitor lytes heme - bladder cancer - management per onc endo - monitor fs lines - piv, port ppx - gi/dvt DNR Critical Care Time: 50 mins
[2018-07-22] MEDS: oxyCODONE/Acetamin 5/325 MG* TAB PO PRN (13:05)
[2018-07-22] MEDS: ALPRAZolam TAB* 0.25 MG PO PRN ×2 (13:06→21:04)
[2018-07-22] MEDS: Sertraline* 50 MG TAB PO SCH (13:32)
[2018-07-22] MEDS ORDERED: Vancomycin(*) 1,000 MG in NS 0.9% 250 ML* 250 ML IVPB ONE (15:30)
[2018-07-22] MEDS ORDERED: Vancomycin per Pharmacy* NOTE FOLLOW UP SCH (16:00)
[2018-07-22] MEDS ORDERED: Vancomycin(*) 0 MG in NS 0.9% 250 ML* 250 ML IVPB SCH (16:00)
[2018-07-23] MEDS: Norepinephrine VIAL* 8 MG in NS 0.9% 500 ML* 492 ML IV SCH ×2
[2018-07-23] MEDS: ZOSYN 3.375 GM Q8H per EXTENDED INFUSION IVPB SCH ×6 (05:20→20:58)
[2018-07-23] MEDS: Vasopressin* 100 UNITS in D5W 250 ML BAG IVPB SCH ×2 (05:36→20:58)
[2018-07-23] MEDS ORDERED: Vancomycin(*) 1,000 MG in NS 0.9% 250 ML* 250 ML IVPB SCH (06:00)
[2018-07-23 06:27] LABS: Vancomycin Trough 7.5 mcg/mL
[2018-07-23] MEDS: Sertraline* 50 MG TAB PO SCH (08:42)
--- NOTE | 2018-07-23 08:53 | PN ---
Date of Service: 07/23/18 Critical Care Services: 63M with complicated abdominal surgical history, bladder cancer s/p urostomy on immunotherapy with keytruda presents with hypotension after renal stent replacement. 07/22: Levophed down to 4 from 18. Hematuria clearing. 07/23: pressors off. strep in blood. patient wants to leave. Vital Signs: Temp Pulse Resp BP SpO2 FiO2 97.7 F 65 16 102/67 99 07/23/18 07:48 07/23/18 08:01 07/23/18 08:17 07/23/18 08:17 07/23/18 08:01 Physical Exam: Gen - chronically ill, grumpy Heent - ncat, eomi, perrl neck - no jvd cv - s1/s2, no murmur lungs - cta, no wheeze abd - soft, nt, +urostomy neuro - non-focal Fluid Balance (Past 24 Hours): I= O= Net Intake & Output 07/21/18 07/22/18 07/23/18 07/24/18 06:59 06:59 06:59 06:59 Intake Total 5725 2753 Output Total 285 1735 Balance 5440 1018 Weight 63.503 kg Intake: IV Fluids 3100 902 ABX - ZOSYN 385 NS (0.9%) 517 IVPB 1343 100 ABX - ZOSYN 100 NS W/ ABX 1343 Medicated IV 442 181 LEVOPHED 386 100 VASOPRESSIN 56 81 Oral 840 1570 Output: Urine 245 Hernandez 285 1490 Other: Estimated Void Medium Date of Last Bowel 07/22/2017 07/23/2017 Movement # Bowel Movements 1 1 Estimated Stool Amount Medium Medium Medium # Voids 1 Labs: Laboratory Results - last 24 hr 07/23/18 05:39 Vancomycin Trough 7.5 Studies: PET Scan 07/14/18 IMPRESSION: Interstitial and alveolar infiltrates are noted throughout both lung kuo which has progressed since previous exam. These demonstrate SUV values of up to 5.1 and is diffusely located in the upper lobes although areas in the lower lobes are also present. Possibility of metastatic disease should BE considered. Inflammatory process is considered less likely. Focal area of increased metabolic activity in the left lower quadrant is noted which was not present previously. Impression: 63M with complicated abdominal surgical history, bladder cancer s/p urostomy on immunotherapy with keytruda presents with hypotension after renal stent replacement. Plan: Neuro - pain control CV - hypotension - 2/2 septic shock - iv hydration - pressors off this am pulm - alveolar infiltrates on recent pet ct - pna vs metastatic disease vs pneumonitis 2/2 keytruda - oxygenating ok on nasal cannula - will need need repeat ct scan when acute issue resolved id - septic shock - strep bacteremia - on vanc/zosyn - awaiting sensitivities gi - nausea/vomiting/diarrhea - improving - c diff neg - stool cult neg renal - pam, hematuria - hematuria clearing - monitor i/o - monitor lytes heme - bladder cancer - management per onc endo - monitor fs lines - piv, port ppx - gi/dvt DNR Critical Care Time: 50 mins
[2018-07-23 09:22] LABS: Albumin 2.4 g/dL (3.2-5.2); Albumin/Globulin Ratio 0.9 (1-3); BUN/Creatinine Ratio 26.5 (8-20); Calcium 7.8 mg/dL (8.6-10.3); EGFR African American 66.1 (>60); EGFR Non-African American 54.6 (>60); Globulin 2.8 g/dL (2-4); Potassium 3.8 mmol/L (3.5-5.0); Total Bilirubin 0.2 mg/dL (0.2-1.0); Total Protein 5.2 g/dL (6.4-8.9)
[2018-07-23] MEDS ORDERED: Vancomycin(*) 1,250 MG in NS 0.9% 250 ML* 250 ML IVPB SCH (09:44)
[2018-07-23 10:05] LABS: Hematocrit 26 % (42-52); Hemoglobin 8.3 g/dl (14.0-18.0); Mean Corpuscular HGB Conc 32 g/dl (31-36); Mean Corpuscular Hemoglobin 27 pg (27-31); Mean Corpuscular Volume 82 fL (80-94); Platelet Count 215 10^3/ul (150-450); Red Blood Count 3.12 10^6/ul (4.00-5.40); Red Cell Distribution Width 21 % (10.5-15); White Blood Count 40.9 10^3/ul (3.5-10.8)
[2018-07-23 10:09] LABS: ABS Basophils 0 10^3/ul (0-0.2); ABS Eosinophils 1.2 10^3/ul (0-0.6); ABS Lymphocytes 1.4 10^3/ul (1.0-4.8); ABS Monocytes 0.9 10^3/ul (0-0.8); ABS Neutrophils 37.4 10^3/ul (1.5-7.7); ABS Nucleated RBC 0 10^3/ul; Eosinophil % 2.9 %; Lymphocyte % 3.4 %; Nucleated Red Blood Cells % 0
[2018-07-23] MEDS: Vancomycin(*) 1,250 MG in NS 0.9% 250 ML* 250 ML IVPB SCH (16:00)
[2018-07-23] MEDS: Ferrous Sulfate TAB* 325 MG PO SCH ×2 (16:16→20:58)
[2018-07-23] MEDS: ALPRAZolam TAB* 0.25 MG PO PRN (20:58)
[2018-07-24 04:30] LABS: Hematocrit 27 % (42-52); Hemoglobin 8.5 g/dl (14.0-18.0); Mean Corpuscular HGB Conc 32 g/dl (31-36); Mean Corpuscular Hemoglobin 27 pg (27-31); Mean Corpuscular Volume 84 fL (80-94); Mean Platelet Volume 8.1 fL (7.4-10.4); Platelet Count 216 10^3/ul (150-450); Red Blood Count 3.19 10^6/ul (4.00-5.40); Red Cell Distribution Width 21 % (10.5-15); White Blood Count 29.1 10^3/ul (3.5-10.8)
[2018-07-24 04:48] LABS: Calcium 8.2 mg/dL (8.6-10.3); EGFR African American 62.8 (>60); EGFR Non-African American 51.9 (>60); Magnesium 1.8 mg/dL (1.9-2.7); Potassium 3.4 mmol/L (3.5-5.0)
[2018-07-24 04:52] LABS: Immature Granulocytes 1 % (0-9); Lymphocytes % 3 %; Monocytes % 2 %; Neutrophil % 91 %
[2018-07-24 04:54] LABS: ABS Neutrophils 26.8 10^3/ul (1.5-7.7)
[2018-07-24 04:55] LABS: ABS Eosinophils 0.9 10^3/ul (0-0.6)
[2018-07-24] MEDS: ZOSYN 3.375 GM Q8H per EXTENDED INFUSION IVPB SCH ×2 (05:17)
[2018-07-24] MEDS: Vancomycin(*) 1,250 MG in NS 0.9% 250 ML* 250 ML IVPB SCH (08:07)
[2018-07-24] MEDS: Ferrous Sulfate TAB* 325 MG PO SCH (08:07)
[2018-07-24] MEDS: Sertraline* 50 MG TAB PO SCH (08:07)
[2018-07-24] MEDS: ALPRAZolam TAB* 0.25 MG PO PRN (08:07)
--- NOTE | 2018-07-24 09:02 | PN ---
Date of Service: 07/24/18 Critical Care Services: 63M with complicated abdominal surgical history, bladder cancer s/p urostomy on immunotherapy with keytruda presents with hypotension after renal stent replacement. 07/22: Levophed down to 4 from 18. Hematuria clearing. 07/23: pressors off. strep in blood. patient wants to leave. 07/24: enterococcus, staph epi in blood. patient improving. ID called for discharge abx. Vital Signs: Temp Pulse Resp BP SpO2 FiO2 99 F 59 15 116/65 97 07/24/18 07:33 07/24/18 08:01 07/24/18 08:07 07/24/18 08:00 07/24/18 08:01 Physical Exam: Gen - chronically ill, grumpy Heent - ncat, eomi, perrl neck - no jvd cv - s1/s2, no murmur lungs - cta, no wheeze abd - soft, nt, +urostomy neuro - non-focal Fluid Balance (Past 24 Hours): I= O= Net Intake & Output 07/22/18 07/23/18 07/24/18 07/25/18 06:59 06:59 06:59 06:59 Intake Total 5725 2753 3233.9 Output Total 285 1735 3320 675 Balance 5440 1018 -86.1 -675 Weight 63.503 kg 66.043 kg Intake: IV Fluids 3100 902 570.9 ABX - VANCOMYCIN 154 ABX - ZOSYN 385 185.9 NS (0.9%) 517 231 IVPB 1343 100 417 ABX - VANCOMYCIN 270 ABX - ZOSYN 100 147 NS W/ ABX 1343 Medicated IV 442 181 6 LEVOPHED 386 100 VASOPRESSIN 56 81 6 Oral 840 1570 2240 Output: Urine 245 Hernandez 285 1490 1745 Urostomy 1575 675 Other: Estimated Void Medium Date of Last Bowel 07/22/2017 07/23/2017 Movement # Bowel Movements 1 1 Estimated Stool Amount Medium Medium Medium # Voids 1 Labs: Laboratory Results - last 24 hr 07/23/18 07/23/18 07/24/18 05:39 09:25 04:14 WBC 40.9 H RBC 3.12 L Hgb 8.3 L Hct 26 L MCV 82 MCH 27 MCHC 32 RDW 21 H Plt Count 215 MPV 8.0 Neut % (Auto) 91.4 Lymph % (Auto) 3.4 [place] % (Auto) 2.2 Eos % (Auto) 2.9 Baso % (Auto) 0.1 Absolute Neuts (auto) 37.4 H Absolute Lymphs (auto) 1.4 Absolute Monos (auto) 0.9 H Absolute Eos (auto) 1.2 H Absolute Basos (auto) 0 Absolute Nucleated RBC 0 Immature Gran % Neutrophils % Band Neutrophils % Lymphocytes % Monocytes % Eosinophils % Nucleated RBC % 0 Abs Neuts (Manual) Abs Lymphs (Manual) Abs Monocytes (Manual) Absolute Eos (Manual) Toxic Granulation Normal RBC Morphology Sodium 138 140 Potassium 3.8 3.4 L Chloride 110 115 H Carbon Dioxide 19 L 19 L Anion Gap 9 6 BUN 35 H 29 H Creatinine 1.32 H 1.38 H Est GFR ( Amer) 66.1 62.8 Est GFR (Non-Af Amer) 54.6 51.9 BUN/Creatinine Ratio 26.5 H 21.0 H Glucose 90 83 Calcium 7.8 L 8.2 L Magnesium 1.8 L Total Bilirubin 0.20 AST 32 ALT 31 Alkaline Phosphatase 146 H Total Protein 5.2 L Albumin 2.4 L Globulin 2.8 Albumin/Globulin Ratio 0.9 L 07/24/18 04:14 WBC 29.1 H RBC 3.19 L Hgb 8.5 L Hct 27 L MCV 84 MCH 27 MCHC 32 RDW 21 H Plt Count 216 MPV 8.1 Neut % (Auto) Not Reportable Lymph % (Auto) Not Reportable [place] % (Auto) Not Reportable Eos % (Auto) Not Reportable Baso % (Auto) Not Reportable Absolute Neuts (auto) Not Reportable Absolute Lymphs (auto) Not Reportable Absolute Monos (auto) Not Reportable Absolute Eos (auto) Not Reportable Absolute Basos (auto) Not Reportable Absolute Nucleated RBC Not Reportable Immature Gran % 1 Neutrophils % 91 Band Neutrophils % 1 Lymphocytes % 3 Monocytes % 2 Eosinophils % 3 Nucleated RBC % Not Reportable Abs Neuts (Manual) 26.8 H Abs Lymphs (Manual) 0.9 L Abs Monocytes (Manual) 0.6 Absolute Eos (Manual) 0.9 H Toxic Granulation 1+ Normal RBC Morphology Normal Sodium Potassium Chloride Carbon Dioxide Anion Gap BUN Creatinine Est GFR ( Amer) Est GFR (Non-Af Amer) BUN/Creatinine Ratio Glucose Calcium Magnesium Total Bilirubin AST ALT Alkaline Phosphatase Total Protein Albumin Globulin Albumin/Globulin Ratio Studies: PET Scan 07/14/18 IMPRESSION: Interstitial and alveolar infiltrates are noted throughout both lung kuo which has progressed since previous exam. These demonstrate SUV values of up to 5.1 and is diffusely located in the upper lobes although areas in the lower lobes are also present. Possibility of metastatic disease should BE considered. Inflammatory process is considered less likely. Focal area of increased metabolic activity in the left lower quadrant is noted which was not present previously. Impression: 63M with complicated abdominal surgical history, bladder cancer s/p urostomy on immunotherapy with keytruda presents with hypotension after renal stent replacement. Plan: Neuro - pain control CV - hypotension - improved pulm - alveolar infiltrates on recent pet ct - pna vs metastatic disease vs pneumonitis 2/2 keytruda - oxygenating ok on nasal cannula - will need need repeat ct scan when acute issue resolved id - septic shock - improving - on vanc/zosyn - ID called for discharge abx gi - nausea/vomiting/diarrhea - improving - c diff neg - stool cult neg renal - pam, hematuria - hematuria cleared - monitor i/o - monitor lytes heme - bladder cancer - management per onc endo - monitor fs lines - piv, port ppx - gi/dvt DNR Likely discharge today. Critical Care Time: 35 mins
[2018-07-24 09:11] VITALS: BP 116/70
[2018-07-24] MEDS ORDERED: Alteplase (CATHFLO)* 2 MG/2 ML VIAL IV ONE (10:27)
--- NOTE | 2018-07-24 17:30 | CONS ---
CONSULTATION REPORT: DATE OF CONSULT: 07/24/18 REQUESTING PHYSICIAN: Dr. Juarez. CONSULTING SERVICE: Infectious Disease. REASON FOR CONSULT: Sepsis. IMPRESSION: 1. Septic shock, present on admission, resolved due to Escherichia coli urinary tract infection. 2. History of cystectomy with ileal conduit and bilateral diverting ileostomy tubes which was recently changed. Escherichia coli in the urine as well as Staphylococcus epidermidis, I think the primary pathogen there was Escherichia coli. 3. Staphylococcus epidermidis and Enterococcus faecium in 2 of 4 blood culture bottles. He has not been symptomatic with infusion through the port. I do not think the port is infected. He has had a few days of diarrhea, had Enterococcus faecium in the stool which can occasionally cause a colitis which is a possible source of Enterococcus faecium in the blood. We do not have susceptibilities on the Enterococcus faecium yet but I assume that would be VRE. 4. Bladder cancer, status post cystectomy and on Keytruda. 5. Recurrent urinary tract infection, a brief duration of suppression with Augmentin. RECOMMENDATIONS: Levaquin 500 mg by mouth daily for 14 more days, as well as linezolid 600 mg by mouth twice daily for 14 more days. He has had followup blood cultures obtained, which he is not going to be able to stay to wait for the results. He has improved on vancomycin and Zosyn, so I think it will be reasonable to change him to oral therapy for this infection. He understands he needs to come back to the hospital with fever, chills, sweats, or blood in his urostomy bag. HISTORY OF PRESENT ILLNESS: This is a 63-year-old male with bladder cancer, treated with cystectomy, ileal conduit, but does have bilateral ileostomy tubes which were changed on Saturday. Soon after procedure, he developed chills and rigors, had a dose of Levaquin, urine cultures obtained shows E. Coli. Blood cultures were obtained and he was transferred into the hospital on soft pressors. Blood cultures 2 of 4 growing Staph epi and Enterococcus faecium. He does have a right chest port, has not had fever while on infusion. The patient has noted that he cannot stay any longer in the hospital and feels back to his usual self. No flank pain, back pain or issues with the port. No other prosthetic material present. PAST MEDICAL HISTORY: 1. Bladder cancer status post cystectomy, bilateral ileal drain tubes, currently being treated with Keytruda. 2. Epididymitis in the past. 3. Gastric ulcer, treated with partial gastrectomy, partial duodenal resection. 4. Status post cholecystectomy. MEDICATIONS: 1. Tylenol. 2. Xanax as needed. 3. Ferrous sulfate. 4. Oxycodone. 5. Zosyn 3.375 g every 8 hours. 6. Sertraline. 7. Vancomycin. ALLERGIES: No known drug allergies. FAMILY HISTORY: No recurrent infections. SOCIAL HISTORY: He lives in [place] with his . No travel. No sick contacts. No injection drugs. REVIEW OF SYSTEMS: All negative except as noted above to 14-point review of systems. PHYSICAL EXAM: Vital Signs: Temperature 37, heart rate 60, respiratory rate 18 , blood pressure 116/70, oxygen saturation 99% on room air. In general, he is awake, not in distress. Neurologic: He is oriented x3. Follows all commands. HEENT: There is no conjunctival hemorrhage. Oropharynx without lesions. Neck : Neck is supple without mass. Heart: Regular rate and rhythm without murmurs , rubs or gallops. Lungs: Clear to auscultation bilaterally. Abdomen: Soft, nontender, nondistended. Bowel sounds present. There is an ileostomy draining into Hernandez catheter bag, clear urine. There is no flank pain or tenderness to palpation. Skin: There are no rashes or splinter hemorrhage. Musculoskeletal: There is no spine tenderness to palpation. Right chest port is nontender. There is no swelling or erythema. LABORATORY DATA: White blood cell count 29, down from 45; hemoglobin 8; platelets 216. Creatinine 1.3. Please see impression and recommendations outlined above which I have discussed with Dr. Juarez, and MILTON Romo. Thank you for asking me to see Mr. Pruett in consultation. [id number]/[facility] #: [id number] CARLOS
--- NOTE | 2018-07-24 19:21 | DS ---
CC: Dr. Hansen; Dr. Demetris Sultana; Dr. Herrera * DISCHARGE SUMMARY: DATE OF ADMISSION: 07/21/18 DATE OF DISCHARGE: 07/24/18 PRIMARY CARE PROVIDER: Dr. Hansen. CONSULTING INFECTIOUS DISEASE SPECIALIST: Dr. Demetris Sultana. PRIMARY ONCOLOGIST: Dr. Abhishek Herrera. ATTENDING PHYSICIAN: Dr. Sheela Lei.* (DICTATED BY MILTON MCCARTHY) DISCHARGING PROVIDER: MILTON Mccarthy. DISCHARGE DIAGNOSES: 1. Septic shock with polymicrobial infection with Staphylococcus epidermidis and Enterococcus faecium on blood cultures with Escherichia coli and Staphylococcus epidermidis from urine culture. 2. Metastatic bladder cancer - most recently treated with pembrolizumab, currently on hold with last infusion 06/27/18. 3. Chronic pain. 4. Bilateral urinary ileostomy tubes with history of cystectomy. DISCHARGE MEDICATIONS: 1. Vitamin B12 1000 mcg IM every 14 days. 2. Medical marijuana every 4 hours as needed. 3. Omeprazole 20 mg p.o. daily. 4. Oxycodone 10 mg p.o. q.4 hours as needed for pain. 5. Sustained-release oxycodone 40 mg p.o. twice daily. 6. Zoloft 50 mg p.o. daily. 7. Ferrous sulfate 325 mg p.o. twice daily. 8. Levaquin 500 mg p.o. daily x14 days. 9. Linezolid 600 mg p.o. twice daily x14 days. HOSPITAL IMAGING: None. HOSPITAL COURSE: This is a 63-year-old gentleman with metastatic bladder cancer with a history of radical cystectomy with bilateral urinary ileostomy tubes in place, who presented to Interventional Radiology for routine exchange of his ileostomy tubes, which was performed successfully. Shortly after the tube exchange, the patient developed rigors and spiked a fever and was subsequently transferred to the emergency department for further evaluation. The patient's maximum temperature in the emergency department was 100.9 degrees Fahrenheit. He had heart rates in the low 100s and was hypotensive with systolic pressures between 70 and 90 mmHg. Despite adequate fluid bolus, the patient remained hypotensive and was subsequently started on vasopressor support. Blood cultures were collected, which eventually grew VRE as well as Staph epidermidis. Urine culture collected during the time of his ileostomy tube exchange grew E. coli and Staph epidermidis as well. The patient came off of pressor support after approximately 48 hours and remained afebrile. He was extremely anxious to be discharged from the hospital and threatened to leave against medical advice on numerous occasions. The patient was seen by infectious disease specialist, Dr. Hemanth Sultana, who has seen the patient in an outpatient setting prior for recurrent urinary tract infections. He was concerned that the enterococcus may be a result of colonization of his port, although skin surrounding the port does not appear to be infected. Repeat blood cultures were performed at the time of discharge. PLAN: Plan at the time of discharge is to continue 2 weeks of oral antibiotics with linezolid and Levaquin with close outpatient followup. The patient is made aware that this is a suboptimal plan in terms of his risk for relapse and is willing to accept these risks. He is given explicit instructions to return to the emergency department in case of declining symptoms or recurrent fever. DISPOSITION AND FOLLOWUP PLAN: The patient is being discharged to home with linezolid and Levaquin for 2 weeks as outlined above. He will be seen by Dr. Herrera in followup on 07/28/18. Blood cultures that are collected on the day of discharge will be followed closely as an outpatient and repeat labs will be performed on 07/28/18 at the time reevaluation. MILTON MCCARTHY [id number]/[facility] #: [id number] CARLOS
[2018-07-25] MEDS ORDERED: Vancomycin Trough Check NOTE FOLLOW UP ONE (03:30)
== END 2018-07-24 11:33 | disposition home health service (06) | DRG 466 ==
LOC: ED 11:32 → ICU 16:16
PROVIDERS: ADMIT Internal Medicine Hematology & Oncology; ATTEND Internal Medicine Hematology & Oncology
PROC: 3E033XZ Introduction of Vasopressor into Peripheral Vein, Percutaneous Approach (ICD-10-PCS; principal; 2018-07-22)
DX: T83.593A Infection and inflammatory reaction due to other urinary stents, initial encounter (principal); A41.9 Sepsis, unspecified organism; R65.21 Severe sepsis with septic shock; N17.9 Acute kidney failure, unspecified; K21.9 Gastro-esophageal reflux disease without esophagitis; F41.0 Panic disorder [episodic paroxysmal anxiety]; C67.9 Malignant neoplasm of bladder, unspecified; Z96.0 Presence of urogenital implants; Z66 Do not resuscitate; R31.9 Hematuria, unspecified; R40.2362 Coma scale, best motor response, obeys commands, at arrival to emergency department; R40.2142 Coma scale, eyes open, spontaneous, at arrival to emergency department; R40.2252 Coma scale, best verbal response, oriented, at arrival to emergency department; B96.20 Unspecified Escherichia coli [E. coli] as the cause of diseases classified elsewhere; B95.7 Other staphylococcus as the cause of diseases classified elsewhere; G89.29 Other chronic pain; Y73.3 Surgical instruments, materials and gastroenterology and urology devices (including sutures) associated with adverse incidents; Z90.6 Acquired absence of other parts of urinary tract; Y92.89 Other specified places as the place of occurrence of the external cause; Z90.49 Acquired absence of other specified parts of digestive tract; Z83.3 Family history of diabetes mellitus; Z88.5 Allergy status to narcotic agent; Z87.11 Personal history of peptic ulcer disease; Z80.8 Family history of malignant neoplasm of other organs or systems; Z80.42 Family history of malignant neoplasm of prostate; Z82.0 Family history of epilepsy and other diseases of the nervous system; Z80.7 Family history of other malignant neoplasms of lymphoid, hematopoietic and related tissues
CPT/HCPCS: 36415; 80048; 80053; 80202; 81003; 81015; 83605; 83735; 84132; 84484; 85025; 85027; 85610; 85730; 86850; 86900; 86901; 87040; 87045; 87046; 87076; 87077; 87150; 87186; 87205; 87493; 87641; 87899; 99223; 99239; 99285; A9270-GY; J1170; J2405; J2543; J2997; J3370

== ENCOUNTER 2019-03-03 06:14 | Emergency (ER) | payer BC, MEDICARE ==
[2019-03-03] MEDS ORDERED: HYDROmorphone INJ1* 1 MG/ML SYRINGE IV ONE (06:44)
[2019-03-03] MEDS ORDERED: Ondansetron INJ* 2 MG/ML VIAL IV ONE (06:45)
--- NOTE | 2019-03-03 06:48 | ED ---
GI/ HPI - HPI Summary HPI Summary: 64 year old male presents with erection for past 14 hours. He had penile injection by Dr. Kumar yesterday. He had this reaction before but only last 4 hours. He states he is an extreme pain. He denies any cardiac history. denies any chest pain or shortness breath. Has not tried anything. - History of Current Complaint Chief Complaint: EDUrogenitalProblems Time Seen by Provider: 03/03/19 06:40 Stated Complaint: ERECTION FOR 14 HOURS PER PT Pain Intensity: 8 - Additional Pertinent History Primary Care Physician: [id number] - Allergy/Home Medications Allergies/Adverse Reactions: Allergies Allergy/AdvReac Type Severity Reaction Status Date / Time morphine Allergy Itching Verified 03/03/19 06:35 Home Medications: Home Medications Sertraline HCl 10 mg PO DAILY 03/03/19 [History Confirmed 03/03/19] PMH/Surg Hx/FS Hx/Imm Hx Endocrine/Hematology History: Reports: Hx Anemia Denies: Hx Diabetes, Hx Systemic Lupus Erythematosus, Other Endocrine/ Hematological Disorders - bladder CA w/ mets and chemo (completed recently) Cardiovascular History: Reports: Other Cardiovascular Problems/Disorders - 1993 AAA, RUPTURED, SURGERY Denies: Hx Congestive Heart Failure, Hx Hypertension, Hx Pacemaker/ICD Respiratory History: Reports: Hx Pneumonia GI History: Reports: Hx Gall Bladder Disease, Hx Gastroesophageal Reflux Disease - ON DAILY MEDS, NO Sx, Hx Irritable Bowel, Hx Obstructive Bowel, Hx Ileostomy - Reversed, Hx Ulcer - HX OF, Other GI Disorders - DUMPING SYNDROME History: Reports: Other Problems/Disorders - bladder ca with urostomy Denies: Hx Dialysis, Hx Renal Disease Musculoskeletal History: Reports: Hx Back Problems Denies: Hx Rheumatoid Arthritis Sensory History: Reports: Hx Contacts or Glasses Denies: Hx Deafness, Hx Hearing Aid, Hx Hearing Problem Opthamlomology History: Reports: Hx Contacts or Glasses Neurological History: Reports: Other Neuro Impairments/Disorders - NERVE PAIN R/ T OPEN AHMET 10/12/15 Psychiatric History: Reports: Hx Anxiety, Hx Panic Disorder - Cancer History Cancer Type, Location and Year: BLADDER CANCER Hx Chemotherapy: Yes - Surgical History Surgery Procedure, Year, and Place: [id number] Seven abdominal surgeries , all for ulcer or abdominal blockage,. 1993 ABD ANEURYSM REPAIR - [facility] [place] colectomy/LYSIS OF ADHESIONS [facility] [place]. 09/[address] [facility]. 10/2015 & 12/2015 BLADDER TUMORS [facility]. MARCUS REMOVED 07/2018 Hx Anesthesia Reactions: No - Immunization History Date of Tetanus Vaccine: unk Date of Influenza Vaccine: 2014 Infectious Disease History: No Infectious Disease History: Denies: Hx of Known/Suspected MRSA, Hx Shingles, Hx Tuberculosis, History Other Infectious Disease, Traveled Outside the [place] in Last 30 Days - Family History Known Family History: Positive: None, Diabetes Negative: Hypertension - Social History Alcohol Use: None Hx Substance Use: No Substance Use Type: Reports: None Substance Use Comment - Amount & Last Used: medical marijuana Hx Tobacco Use: Yes Smoking Status (MU): Heavy Every Day Tobacco Smoker Type: Cigarettes Amount Used/How Often: 1/2 PPD X 40 YEARS Length of Time of Smoking/Using Tobacco: SINCE 'S Have You Smoked in the Last Year: Yes Review of Systems Negative: Fever Negative: Chest Pain Negative: Shortness Of Breath Positive: other - priapism All Other Systems Reviewed And Are Negative: Yes Physical Exam Triage Information Reviewed: Yes Vital Signs On Initial Exam: Initial Vitals Temp Pulse Resp BP Pulse Ox 97.9 F 93 18 105/67 100 03/03/19 06:18 03/03/19 06:18 03/03/19 06:18 03/03/19 06:18 03/03/19 06:18 Vital Signs Reviewed: Yes Appearance: Positive: Well-Appearing Skin: Positive: Warm, Dry Head/Face: Positive: Normal Head/Face Inspection Eyes: Positive: Normal, Conjunctiva Clear ENT: Positive: Pharynx normal Respiratory/Lung Sounds: Positive: Clear to Auscultation, Breath Sounds Present Cardiovascular: Positive: Normal, RRR Abdomen Description: Positive: Nontender, Soft, Other: - erection present Bowel Sounds: Positive: Present Musculoskeletal: Positive: Normal Neurological: Positive: Normal Psychiatric: Positive: Normal Diagnostics - Vital Signs Vital Signs Temp Pulse Resp BP Pulse Ox 03/03/19 06:18 97.9 F 93 18 105/67 100 - Laboratory Lab Statement: Any lab studies that have been ordered have been reviewed, and results considered in the medical decision making process. Re-Evaluation - Re-Evaluation First Eval Re-Evaluation Time: 08:40 Change: Improved Comment: Patient's symptoms have improved following Dr. Silva's consult. GIGU Course/Dx - Course Course Of Treatment: 64 year old male presents with erection for past 14 hours. He had penile injection by Dr. Kumar yesterday. He had this reaction before but only last 4 hours. He states he is an extreme pain. He denies any cardiac history. denies any chest pain or shortness breath. Has not tried anything. on exam has priapism noted. Called Dr. Silva says will see in ED. dr rizzo corrected priapism and pt can be discharge with follow up. patient understand and agrees with plan. - Diagnoses Differential Diagnoses - Male: Urinary Tract Infection, Other - priapism, Provider Diagnoses: Priapism Discharge - Sign-Out/Discharge Documenting (check all that apply): Patient Departure Patient Received Moderate/Deep Sedation with Procedure: No - Discharge Plan Condition: Stable Disposition: HOME Patient Education Materials: Priapism (ED) Referrals: Melissa Hansen MD [Primary Care Provider] - 3 Days Papa Silva MD [Medical Doctor] - 7 Days Additional Instructions: Please follow up with Dr. Silva in 7-10 days following today's visit. Take over the counter Sudafed 60mg x 2 doses - one dose when you get home and one dose in [address] Silva office or return with questions or concerns Return to the emergency department for any new or worsening symptoms. - Billing Disposition and Condition Condition: STABLE Disposition: Home
[2019-03-03] MEDS ORDERED: Phenylephrine 10 MG/ML VIAL* 1 ML VIAL ONE ×2 (07:40→08:00)
[2019-03-03] MEDS ORDERED: Sodium Chloride FLUSH* 10 ML SYRINGE IV FLUSH ONE (07:45)
[2019-03-03 09:12] VITALS: BP 126/70
--- NOTE | 2019-03-03 09:12 | ED ---
Progress - Progress Note Progress Note: The patient is under the care of MILTON Kingston. I saw the patient with Dr. Silva, urology. After monitoring VS x 30 min, okay discharge with Sudafed 60mg x 2 doses Q8hr hydrate call office for follow-up The patient will be discharged home with follow up with Dr. Silva in 7-10 days for priapism. Patient agrees with this plan. Re-Evaluation - Re-Evaluation First Eval Re-Evaluation Time: 08:40 Change: Improved Comment: Patient's symptoms have improved following Dr. Silva's consult. Course/Dx - Course Course Of Treatment: The patient is under the care of MILTON Kingston. I saw the patient with Dr. Silva, urology. The patient will be discharged home with follow up with Dr. Silva in 7-10 days for priapism. Patient agrees with this plan. - Diagnoses Provider Diagnoses: Priapism - Provider Notifications Discussed Care Of Patient With: Papa Silva - urology Time Discussed With Above Provider: 08:35 Instructed by Provider To: Other - Dr. Silva recommends discharge of the patient with follow up in his office in 7-10 days. Discharge - Sign-Out/Discharge Documenting (check all that apply): Patient Departure - Patient will be discharged home. Patient Received Moderate/Deep Sedation with Procedure: No - Discharge Plan Condition: Stable Disposition: HOME Patient Education Materials: Priapism (ED) Referrals: Papa Silva MD [Medical Doctor] - 7 Days Melissa Hansen MD [Primary Care Provider] - 3 Days Additional Instructions: Please follow up with Dr. Silva in 7-10 days following today's visit. Take over the counter Sudafed 60mg x 2 doses - one dose when you get home and one dose in [address] Silva office or return with questions or concerns Return to the emergency department for any new or worsening symptoms. - Billing Disposition and Condition Condition: STABLE Disposition: Home - Attestation Statements Document Initiated by Scribe: Yes Documenting Scribe: Antoinette Mosqueda Provider For Whom Scribe is Documenting (Include Credential): Dr. Chaya Ashford MD Scribe Attestation: Antoinette Cabello, scribed for Dr. Chaya Ashford MD on 03/03/19 at 1028. Scribe Documentation Reviewed: Yes Provider Attestation: The documentation as recorded by the scribe, Antoinette Mosqueda accurately reflects the service I personally performed and the decisions made by me, Dr. Chaya Ashford MD Status of Scribe Document: Viewed
--- NOTE | 2019-03-04 22:50 | CONS ---
EMERGENCY ROOM CONSULTATION NOTE: DATE OF CONSULT: 03/03/19 - EMERGENCY DEPT. DIAGNOSIS: Priapism. PROCEDURE: Reduction of priapism. HISTORY OF PRESENT ILLNESS: Mr. Pruett is a 64-year-old white male who developed erectile dysfunction following a radical cystectomy and creation of an ileal loop conduit for bladder carcinoma. Since his operation, he had developed erectile dysfunction and this did not respond to various oral ED medications. He previously has been tried on trimix intracavernosal injections with no success. Yesterday around 4 p.m., he was seen by Dr. Kumar in our office. He injected him with 0.4 cc of bimix solution. The patient was observed and then sent home and instructed to call back if priapism reoccurs. Following the injection, the patient noted good erections. The erections apparently persisted all night and he presented to the emergency room 14 hours after the injection with persistent painful priapism. He was evaluated by the emergency room staff and an urgent consultation was obtained. There has not been any other intake of medications that would predispose the patient to priapism. No history of blood dyscrasia. On physical examination, the patient was uncomfortable. There was painful priapism. He had an ileal conduit, draining clear urine. The rest of the examination was normal. The patient was then placed on blood pressure monitoring and on EKG monitoring. The penis was prepped with Betadine. A 21 viral butterfly needle was introduced into the left corpus cavernosum and a total of 30 cc of blood was drained. A solution of phenylephrine 0.5 mg/cc was prepared. 1 cc of that solution was injected through the butterfly once every 5 minutes while monitoring the patient 's EKG and blood pressure. After the 3rd cc, there was excellent response with complete resolution of the priapism. Another cc was given for a total of 4 cc. The patient was then observed in the emergency room for another 45 minutes and the priapism did not recur. He was instructed to take 2 doses of Sudafed 60 mg p.o.today at 8 hours intervals and to call promptly if the priapism recurs. The patient will be seen in our office for followup. [id number]/[facility] #: [id number] [facility]
== END 2019-03-03 09:20 | disposition home or self-care (01) ==
LOC: ED 06:14
DX: N48.30 Priapism, unspecified (principal); N52.32 Erectile dysfunction following radical cystectomy; D64.9 Anemia, unspecified; K21.9 Gastro-esophageal reflux disease without esophagitis; F41.9 Anxiety disorder, unspecified; Z85.51 Personal history of malignant neoplasm of bladder; F17.210 Nicotine dependence, cigarettes, uncomplicated; Z88.5 Allergy status to narcotic agent; Z79.899 Other long term (current) drug therapy
CPT/HCPCS: 54220; 96374; 96375; 96376; 99284; J1170; J2405

== ENCOUNTER 2020-02-26 10:25 | Inpatient (IN) ==
[2020-02-26] MEDS ORDERED: Naloxone 0.4 mg VIAL 0.4 mg/ml 1 ml VIAL ONE (10:31)
[2020-02-26] MEDS ORDERED: NS 0.9% 1000 ml BAG 1,000 ML IV ONE (10:35)
[2020-02-26] MEDS ORDERED: Etomidate 20 mg/10 ml 2 MG/ML 10 ml VIAL IV ONE (10:37)
[2020-02-26] MEDS ORDERED: Rocuronium 50 mg VIAL 10 mg/ml 5 ml VIAL (50 mg) IV ONE (10:37)
[2020-02-26] MEDS ORDERED: Rocuronium 50 mg VIAL 10 mg/ml 5 ml VIAL (50 mg) ONE ×2 (10:37→11:07)
[2020-02-26] MEDS ORDERED: Propofol 10 mg/ml 100 ML BTL 100 ML IV ONE (10:42)
[2020-02-26] MEDS ORDERED: Etomidate 40 mg/20 ml (2 MG/ML) 20 ml VIAL (40 mg) ONE (10:47)
[2020-02-26 10:51] LABS: ABS Eosinophils 0.2 10^3/ul (0-0.6); ABS Lymphocytes 0.9 10^3/ul (1.0-4.8); ABS Monocytes 0.7 10^3/ul (0-0.8); ABS Neutrophils 10.7 10^3/ul (1.5-7.7); Eosinophil % 1.6 %; Hematocrit 37 % (42-52); Hemoglobin 12.2 g/dL (14.0-18.0); Mean Corpuscular HGB Conc 33 g/dL (31-36); Mean Corpuscular Hemoglobin 29 pg (27-31); Mean Corpuscular Volume 88 fL (80-94); Mean Platelet Volume 7.7 fL (7.4-10.4); Platelet Count 283 10^3/uL (150-450); Red Blood Count 4.21 10^6 /uL (4.18-5.48); Red Cell Distribution Width 18 % (10-15); White Blood Count 12.5 10^3/uL (3.5-10.8)
[2020-02-26] MEDS ORDERED: Naloxone 0.4 mg VIAL 2 MG in NS 0.9% 250 ml 245 ML IV SCH (11:00)
[2020-02-26 11:05] LABS: Albumin 3.8 g/dL (3.2-5.2); Anion Gap 7 mmol/L (2-11); CO2 Carbon Dioxide 24 mmol/L (22-32); Calcium 8.6 mg/dL (8.6-10.3); Chloride 105 mmol/L (101-111); Magnesium 2.1 mg/dL (1.9-2.7); Sodium 136 mmol/L (135-145)
[2020-02-26 11:10] LABS: Acetaminophen < 15 mcg/mL; Alcohol, S < 10 mg/dL (<10); Salicylate < 2.50 mg/dL (<30)
[2020-02-26 11:11] LABS: ALT 52 U/L (7-52); AST 98 U/L (13-39); Albumin/Globulin Ratio 1.2 (1-3); Alkaline Phosphatase 222 U/L (34-104); BUN/Creatinine Ratio 17.8 (8-20); Blood Urea Nitrogen 27 mg/dL (6-24); EGFR Non-African American 46.3 (>60); Globulin 3.2 g/dL (2-4); Glucose 99 mg/dL (70-100)
[2020-02-26] MEDS ORDERED: Charcoal ACTIVATED 25 GM/120 ML BTL PO ONE (11:55)
[2020-02-26 12:16] LABS: Urine Appearance Cloudy; Urine Bilirubin Negative (Negative); Urine Blood 3+ (Negative); Urine Color Yellow; Urine Glucose Negative (Negative); Urine Ketones Negative (Negative); Urine Nitrite Negative (Negative); Urine Protein 2+(100 mg/dL) (Negative); Urine Specific Gravity 1.013 (1.010-1.030); Urine Urobilinogen Negative (Negative)
[2020-02-26] MEDS ORDERED: Naloxone 0.4 mg VIAL 0.4 mg/ml 1 ml VIAL IV PUSH ONE (12:20)
[2020-02-26 12:24] LABS: Urine Bacteria Absent (Absent); Urine Red Blood Cell 3+(>10/hpf) (Absent); Urine Squamous Epithelial Cell Present (Absent); Urine White Blood Cell 3+(>20/hpf) (Absent)
[2020-02-26 12:32] LABS: Urine Benzodiazepine Screen None Detected (None Detect); Urine Cannabinoids Screen None Detected (None Detect); Urine Opiates Screen Presumptive Positive (None Detect)
[2020-02-26 12:41] LABS: Creatine Kinase 1086 U/L (10-223)
[2020-02-26] MEDS ORDERED: Lactated Ringers 1000 ml BAG 1,000 ML IV SCH (16:00)
[2020-02-26 16:19] LABS: INR 1.04 (0.82-1.09)
[2020-02-26 16:55] LABS: Creatine Kinase 3626 U/L (10-223); Myoglobin > 4102.0 ng/mL (17.4-105.7)
[2020-02-26] MEDS: Azithromycin 500 mg/250 ml NS 500 MG/250 ML BAG IVPB SCH (19:03)
[2020-02-26] MEDS: cefTRIAXone 2 GM ADDV.VIAL 2 GM in NS 0.9% 100 ml BAG 100 ML IV SCH (19:03)
[2020-02-26] MEDS ORDERED: LACTATED RINGERS IV SCH (19:15)
[2020-02-26] MEDS: Chlorhexidine MOUTHWASH 0.12% 15 ML UDC SWISH SPIT SCH ×2 (19:47→21:59)
[2020-02-26] MEDS: LACTATED RINGERS IV SCH (21:23)
[2020-02-26] MEDS ORDERED: Propofol 10 mg/ml 100 ML BTL 100 ML IV SCH (22:00)
[2020-02-26] MEDS: Propofol* 20 ML VIAL - FOR IV LINE PRIMING ONLY SCH ×2 (22:00→22:06)
[2020-02-27] MEDS: Chlorhexidine MOUTHWASH 0.12% 15 ML UDC SWISH SPIT SCH ×3 (02:00→09:15)
[2020-02-27] MEDS: LACTATED RINGERS IV SCH (02:02)
[2020-02-27 04:14] LABS: ABS Eosinophils 0.1 10^3/ul (0-0.6); ABS Lymphocytes 0.8 10^3/ul (1.0-4.8); ABS Monocytes 0.6 10^3/ul (0-0.8); Eosinophil % 1.4 %; Hematocrit 32 % (42-52); Hemoglobin 10.6 g/dL (14.0-18.0); Lymphocyte % 7.5 %; Mean Corpuscular HGB Conc 34 g/dL (31-36); Mean Corpuscular Hemoglobin 29 pg (27-31); Mean Corpuscular Volume 87 fL (80-94); Mean Platelet Volume 7.7 fL (7.4-10.4); Nucleated Red Blood Cells % 0.1; Platelet Count 267 10^3/uL (150-450); Red Blood Count 3.64 10^6 /uL (4.18-5.48); Red Cell Distribution Width 18 % (10-15); White Blood Count 10.5 10^3/uL (3.5-10.8)
[2020-02-27 04:28] LABS: Albumin/Globulin Ratio 1.2 (1-3); BUN/Creatinine Ratio 18.6 (8-20); EGFR African American 88.7 (>60); EGFR Non-African American 73.3 (>60); Globulin 2.6 g/dL (2-4); Magnesium 1.6 mg/dL (1.9-2.7); Phosphorus 3.2 mg/dL (2.5-5.0); Potassium 4.3 mmol/L (3.5-5.0); Total Bilirubin 0.2 mg/dL (0.2-1.0); Total Protein 5.6 g/dL (6.4-8.9)
[2020-02-27] MEDS ORDERED: Magnesium Sulfate IV 3 GM in NS 0.9% 100 ml BAG 100 ML IVPB ONE (05:05)
[2020-02-27] MEDS ORDERED: Propofol 10 mg/ml 100 ML BTL 100 ML IV SCH (06:22)
[2020-02-27] MEDS: Lactated Ringers 1000 ml BAG 1,000 ML IV SCH ×2 (07:31→16:43)
[2020-02-27] MEDS: Pantoprazole VIAL 40 MG VIAL IV SCH (09:15)
[2020-02-27] MEDS: Propofol* 20 ML VIAL - FOR IV LINE PRIMING ONLY SCH (11:36)
[2020-02-27] MEDS ORDERED: Haloperidol 5 mg/ml SDV IV/IM 5 MG/ML AMP IV SLOW PU PRN (11:41)
[2020-02-27] MEDS ORDERED: Haloperidol 5 mg/ml SDV IV/IM 5 MG/ML AMP ONE (11:57)
[2020-02-27] MEDS: Nicotine PATCH 21 MG/24 HR PATCH TRANSDERM SCH (12:20)
[2020-02-27] MEDS: Azithromycin 500 mg/250 ml NS 500 MG/250 ML BAG IVPB SCH (18:32)
[2020-02-27] MEDS: cefTRIAXone 2 GM ADDV.VIAL 2 GM in NS 0.9% 100 ml BAG 100 ML IV SCH (18:33)
[2020-02-28] MEDS: Lactated Ringers 1000 ml BAG 1,000 ML IV SCH (02:36)
[2020-02-28 04:59] LABS: ABS Basophils 0.1 10^3/ul (0-0.2); ABS Eosinophils 0.2 10^3/ul (0-0.6); ABS Monocytes 0.5 10^3/ul (0-0.8); Eosinophil % 1.9 %; Hematocrit 28 % (42-52); Hemoglobin 9.3 g/dL (14.0-18.0); Lymphocyte % 10.8 %; Mean Corpuscular HGB Conc 34 g/dL (31-36); Mean Corpuscular Hemoglobin 29 pg (27-31); Mean Corpuscular Volume 87 fL (80-94); Mean Platelet Volume 7.8 fL (7.4-10.4); Platelet Count 227 10^3/uL (150-450); Red Blood Count 3.18 10^6 /uL (4.18-5.48); Red Cell Distribution Width 17 % (10-15); White Blood Count 9.7 10^3/uL (3.5-10.8)
[2020-02-28 05:15] LABS: Albumin 2.5 g/dL (3.2-5.2); BUN/Creatinine Ratio 14.3 (8-20); Calcium 7.8 mg/dL (8.6-10.3); EGFR African American 122.7 (>60); EGFR Non-African American 101.4 (>60); Globulin 2.5 g/dL (2-4); Indirect Bilirubin 0.2 mg/dL (0.3-1.0); Magnesium 1.5 mg/dL (1.9-2.7); Phosphorus 1.9 mg/dL (2.5-5.0); Potassium 3.8 mmol/L (3.5-5.0); Total Bilirubin 0.3 mg/dL (0.2-1.0)
[2020-02-28] MEDS ORDERED: Magnesium Sulfate IV 3 GM in NS 0.9% 100 ml BAG 100 ML IVPB ONE ×2 (05:46→08:00)
[2020-02-28] MEDS ORDERED: Potassium Phosphate IV 15 MMOLE in NS 0.9% 250 ml 250 ML IVPB ONE (08:30)
[2020-02-28] MEDS: Nicotine PATCH 21 MG/24 HR PATCH TRANSDERM SCH (08:42)
[2020-02-28] MEDS: Pantoprazole VIAL 40 MG VIAL IV SCH (08:45)
[2020-02-28] MEDS ORDERED: Lactated Ringers 1000 ml BAG 1,000 ML IV SCH (09:39)
[2020-02-28] MEDS: Azithromycin 500 mg/250 ml NS 500 MG/250 ML BAG IVPB SCH (17:50)
[2020-02-28] MEDS: cefTRIAXone 2 GM ADDV.VIAL 2 GM in NS 0.9% 100 ml BAG 100 ML IV SCH (19:32)
[2020-02-29 07:03] LABS: ABS Eosinophils 0.3 10^3/ul (0-0.6); ABS Lymphocytes 1.7 10^3/ul (1.0-4.8); ABS Monocytes 0.5 10^3/ul (0-0.8); ABS Neutrophils 7.1 10^3/ul (1.5-7.7); Eosinophil % 2.7 %; Hematocrit 35 % (42-52); Hemoglobin 11.9 g/dL (14.0-18.0); Lymphocyte % 17.3 %; Mean Corpuscular HGB Conc 34 g/dL (31-36); Mean Corpuscular Hemoglobin 30 pg (27-31); Mean Corpuscular Volume 86 fL (80-94); Platelet Count 294 10^3/uL (150-450); Red Blood Count 4.04 10^6 /uL (4.18-5.48); Red Cell Distribution Width 17 % (10-15); White Blood Count 9.6 10^3/uL (3.5-10.8)
[2020-02-29] MEDS: Nicotine PATCH 21 MG/24 HR PATCH TRANSDERM SCH (07:14)
[2020-02-29 07:24] LABS: Albumin 3.2 g/dL (3.2-5.2); BUN/Creatinine Ratio 14.4 (8-20); Calcium 8.8 mg/dL (8.6-10.3); EGFR African American 102.2 (>60); EGFR Non-African American 84.4 (>60); Globulin 3.3 g/dL (2-4); Magnesium 1.8 mg/dL (1.9-2.7); Potassium 3.7 mmol/L (3.5-5.0); Total Bilirubin 0.4 mg/dL (0.2-1.0); Total Protein 6.5 g/dL (6.4-8.9)
[2020-02-29] MEDS: Pantoprazole VIAL 40 MG VIAL IV SCH (08:04)
[2020-02-29 08:08] VITALS: BP 113/67
[2020-02-29] MEDS ORDERED: Amoxicillin/Clavul 875/125 TAB (Augmentin 875 tab) PO SCH (09:00)
== END 2020-02-29 14:55 | DRG 812 ==
LOC: ED 10:25 → ICU 12:46 → MEDTELE 02-28 12:35
PROVIDERS: ADMIT Internal Medicine; ATTEND Internal Medicine

== ENCOUNTER 2020-02-29 13:45 | Inpatient (IN) ==
[2020-02-29] MEDS ORDERED: Al Hydrox/Mg Hydrox/Simet LIQ 30 ML UDC PO PRN (15:48)
[2020-02-29] MEDS: Amoxicillin/Clavul 875/125 TAB (Augmentin 875 tab) PO SCH (21:19)
[2020-03-01] MEDS ORDERED: Nicotine PATCH 21 MG/24 HR PATCH TRANSDERM SCH (09:00)
[2020-03-01] MEDS ORDERED: Pantoprazole VIAL 40 MG VIAL IV SCH (09:00)
[2020-03-01] MEDS: Amoxicillin/Clavul 875/125 TAB (Augmentin 875 tab) PO SCH (09:31)
[2020-03-01] MEDS ORDERED: Nicotine GUM 4MG FRUIT FLAVOR PO PRN (10:14)
[2020-03-01 12:21] VITALS: BP 116/62
== END 2020-03-01 16:50 | disposition home or self-care (01) | DRG 751 ==
LOC: BSU 16:07
PROVIDERS: ADMIT Psychiatry & Neurology Psychiatry; ATTEND Psychiatry & Neurology Psychiatry

== ENCOUNTER 2022-08-29 03:14 | Inpatient (IN) ==
[2022-08-29 03:43] LABS: ABS Eosinophils 0.3 10^3/ul (0-0.6); ABS Lymphocytes 1.2 10^3/ul (1.0-4.8); ABS Monocytes 0.7 10^3/ul (0-0.8); ABS Neutrophils 6.4 10^3/ul (1.5-7.7); Eosinophil % 3.9 %; Hematocrit 33 % (42-52); Hemoglobin 10.7 g/dL (14.0-18.0); Lymphocyte % 13.9 %; Mean Corpuscular HGB Conc 33 g/dL (31-36); Mean Corpuscular Hemoglobin 29 pg (27-31); Mean Corpuscular Volume 88 fL (80-94); Mean Platelet Volume 7.3 fL (7.4-10.4); Platelet Count 412 10^3/uL (150-450); Red Blood Count 3.74 10^6 /uL (4.18-5.48); Red Cell Distribution Width 17 % (10-15); White Blood Count 8.7 10^3/uL (3.5-10.8)
[2022-08-29 06:06] LABS: High Sens Troponin Baseline 4 pg/mL (<20); INR 1.22 (0.88-1.18)
[2022-08-29 06:07] LABS: ALT 10 U/L (7-52); AST 12 U/L (13-39); Albumin 3.4 g/dL (3.2-5.2); Alkaline Phosphatase 93 U/L (35-149); Anion Gap 5 mmol/L (2-11); Blood Urea Nitrogen 27 mg/dL (6-24); CO2 Carbon Dioxide 26 mmol/L (22-32); Calcium 8.2 mg/dL (8.6-10.3); Chloride 106 mmol/L (101-111); Creatinine, Serum 1.64 mg/dL (0.67-1.17); Globulin 3.3 g/dL (2-4); Glucose 102 mg/dL (70-100); Potassium 4.5 mmol/L (3.5-5.0); Sodium 137 mmol/L (135-145); Total Protein 6.7 g/dL (6.4-8.9); eGFR CKD-EPI 45.3 (>60)
[2022-08-29 06:09] LABS: High Sensitivity Troponin 1 Hr 4 pg/mL (<20)
[2022-08-29] MEDS ORDERED: Amiodarone 150 mg IVPREMIX 150 MG/100 ML BAG IV ONE (06:36)
[2022-08-29 07:12] LABS: Urine Appearance Clear; Urine Bilirubin Negative (Negative); Urine Blood 2+ (Negative); Urine Color Yellow; Urine Glucose Negative (Negative); Urine Ketones Negative (Negative); Urine Nitrite Negative (Negative); Urine Protein Negative (Negative); Urine Specific Gravity 1.005 (1.002-1.030); Urine Urobilinogen Negative (Negative)
[2022-08-29 07:14] LABS: Urine Bacteria 1+ (Absent); Urine Red Blood Cell 1+(3-5/hpf) (Absent); Urine Squamous Epithelial Cell Present (Absent); Urine White Blood Cell 3+(>20/hpf) (Absent)
[2022-08-29] MEDS ORDERED: NS 0.9% 1000 ml BAG 1,000 ML IV ONE (08:36)
[2022-08-29] MEDS ORDERED: Nicotine PATCH 21 MG/24 HR PATCH TRANSDERM ONE (08:49)
[2022-08-29] MEDS ORDERED: Nicotine GUM 2MG FRUIT FLAVOR PO PRN (08:49)
[2022-08-29 09:31] LABS: Magnesium 2.1 mg/dL (1.9-2.7)
[2022-08-29 09:34] LABS: TSH Ultra Thyroid Stim Horm 1.61 mcIU/mL (0.34-5.60)
[2022-08-29 09:37] LABS: Free T4 1.28 ng/dL (0.61-1.12); Phosphorus 2.8 mg/dL (2.5-5.0)
[2022-08-29] MEDS ORDERED: FOSFOMYCIN 3 GM PO SCH (11:00)
[2022-08-29] MEDS ORDERED: Digoxin IV 0.5 MG/2 ML AMP (0.25 MG/ML) IV SLOW PU ONE ×2 (12:39→15:20)
[2022-08-29 14:05] VITALS: BP 106/62
[2022-08-29 15:46] LABS: CRP High Sensitivity > 80.00 mg/L (<2.00)
== END 2022-08-29 16:00 | disposition left against medical advice (07) | DRG 201 ==
LOC: ED 03:14 → EDHOLD 08:07 → ICU 09:07
PROVIDERS: ADMIT Internal Medicine Critical Care Medicine; ATTEND Internal Medicine Critical Care Medicine